=== PATIENT | female | born 1950 | race African-American/Black ===

== ENCOUNTER 2016-11-28 12:59 | Emergency (ER) | payer MEDICARE, MEDICAID ==
[~2016-11-28] VITALS: Ht 160 cm; Wt 73.0 kg
[~2016-11-28 12:59] MED LIST: AMLO10TA80 PO; ATOR10TA PO; BENA40TA3 PO; LISI-652 PO; Nifedipine PO; TRAM50TA73 PO
[2016-11-28 15:03] LABS: PROTHROMBIN TIME 10.7 sec
[2016-11-28 15:04] LABS: CALCIUM 9.7 mg/dL (8.5-10.1)
[2016-11-28 15:20] LABS: DIFFERENTIAL COMMENT 0; EOSINOPHILS % 2.5 % (0.0-5.0); HEMATOCRIT. 38.4 % (36.0-48.0); HEMOGLOBIN. 12.3 g/dL (12.0-16.0); LYMPHOCYTES % 28.6 % (20.0-50.0); MEAN CORPUSCULAR HEMOGLOBIN 23.5 pg (28.0-32.0); MEAN CORPUSCULAR VOLUME 73.6 fL (81.0-99.0); MEAN PLATELET VOLUME 9.1 fl (7.4-10.4); MONOCYTES % 9.6 % (2.0-8.0); NEUTROPHILS % 58.3 % (40.0-76.0); PLATELET 247 x1000/uL (130-400); RED BLOOD CELL COUNT 5.22 mill/uL (4.2-5.4); RED CELL DISTRIBUTION WIDTH 19.1 % (11.6-14.6)
[2016-11-28 16:15] VITALS: BP 155/76
== END 2016-11-28 16:19 | disposition home or self-care (01) ==
LOC: ER 13:59
DX: T82.318A Breakdown (mechanical) of other vascular grafts, initial encounter (principal); I12.9 Hypertensive chronic kidney disease with stage 1 through stage 4 chronic kidney disease, or unspecified chronic kidney disease; N18.6 End stage renal disease; Z99.2 Dependence on renal dialysis; Z86.73 Personal history of transient ischemic attack (TIA), and cerebral infarction without residual deficits; Y92.89 Other specified places as the place of occurrence of the external cause
CPT/HCPCS: 36415; 71010; 80048; 85025; 85610; 85730; 86850; 86900; 93005; 99285

== ENCOUNTER 2017-04-07 11:40 | Inpatient (IN) | payer MEDICARE, MEDICAID ==
[~2017-04-07] VITALS: Ht 160 cm; Wt 77.1 kg
[2017-04-07] MEDS ORDERED: ASPIRIN 81MG TABLET PO ONE (12:30)
[2017-04-07] MEDS ORDERED: NITROGLYCERIN OINT 1GM/INCH UDPKT TD ONE (12:30)
[2017-04-07 12:48] LABS: BASOPHILS % 1.4 % (0.0-2.0); EOSINOPHILS % 2.3 % (0.0-5.0); HEMATOCRIT. 35.8 % (36.0-48.0); HEMOGLOBIN. 11.7 g/dL (12.0-16.0); MEAN CORPUSCULAR HEMOGLOBIN 23.5 pg (28.0-32.0); MEAN CORPUSCULAR VOLUME 71.8 fL (81.0-99.0); MEAN PLATELET VOLUME 9.3 fl (7.4-10.4); MONOCYTES % 8.7 % (2.0-8.0); NEUTROPHILS % 66.6 % (40.0-76.0); PLATELET 231 x1000/uL (130-400); RED BLOOD CELL COUNT 4.98 mill/uL (4.2-5.4)
[2017-04-07 12:55] LABS: PARTIAL THROMBOPLASTIN TIME 26.6 sec (23.4-31.0); PROTHROMBIN TIME 10.7 sec (9.4-11.6)
[2017-04-07 13:04] LABS: CARBON DIOXIDE 33 mEq/L (21-32); CHLORIDE 93 mEq/L (98-107); TROPONIN I < 0.02 ng/mL (0.00-0.04)
[2017-04-07] MEDS ORDERED: PANTOPRAZOLE SODIUM 40 MG/VIAL IV NR (15:30)
[2017-04-07 17:19] VITALS: BP 99/54
[2017-04-07 17:23] VITALS: BP 99/54
[2017-04-07] MEDS ORDERED: REGADENOSON 0.4 MG/5 ML IV NR (17:30)
[2017-04-07] MEDS ORDERED: CLONIDINE 0.1MG TABLET PO PRN (17:30)
[2017-04-07] MEDS ORDERED: DIPHENHYDRAMINE 50MG/ML VIAL IV PRN (17:30)
[2017-04-07] MEDS ORDERED: MAGNESIUM/ALUMINUM HYDROXIDE/SIMETHICONE 30ML UDC PO PRN (17:30)
[2017-04-07] MEDS ORDERED: ACETAMINOPHEN 325MG TABLET PO PRN (17:30)
[2017-04-07] MEDS ORDERED: ONDANSETRON HCL 4MG/2ML VIAL IV PRN (17:30)
[2017-04-07] MEDS: ENOXAPARIN 30MG/0.3ML SYR SUBCUT SCH (18:22)
[2017-04-07 18:38] LABS: T4 FREE 1.36 ng/dL (0.76-1.46)
[2017-04-07] MEDS ORDERED: INFLUENZA VIRUS VACCINE 0.5ML SYR IM ONE (19:15)
[2017-04-07 20:00] VITALS: BP 109/41
[2017-04-07] MEDS: SODIUM CHLORIDE 0.9% INJ 3ML FLUSH IVF SCH (21:34)
[2017-04-07] MEDS ORDERED: ZOLPIDEM TARTRATE 5MG TABLET PO PRN (23:00)
[2017-04-07 23:25] LABS: CREATINE KINASE 41 IU/L (26-192); CREATINE KINASE MB FRACTION < 0.5 ng/mL (0.5-3.6); TROPONIN I < 0.02 ng/mL (0.00-0.04)
[2017-04-08] VITALS: BP 107/39
[2017-04-08 04:00] VITALS: BP 106/47
[2017-04-08] MEDS: SODIUM CHLORIDE 0.9% INJ 3ML FLUSH IVF SCH ×2 (05:51→19:16)
[2017-04-08 06:26] LABS: BASOPHILS % 0.9 % (0.0-2.0); EOSINOPHILS % 3.7 % (0.0-5.0); HEMATOCRIT. 29.8 % (36.0-48.0); HEMOGLOBIN. 9.8 g/dL (12.0-16.0); MEAN CORPUSCULAR HEMOGLOBIN 23.5 pg (28.0-32.0); MEAN CORPUSCULAR VOLUME 71.8 fL (81.0-99.0); MEAN PLATELET VOLUME 9.2 fl (7.4-10.4); MONOCYTES % 12.3 % (2.0-8.0); NEUTROPHILS % 47.1 % (40.0-76.0); PLATELET 196 x1000/uL (130-400); RED BLOOD CELL COUNT 4.15 mill/uL (4.2-5.4); RED CELL DISTRIBUTION WIDTH 18.5 % (11.6-14.6)
[2017-04-08 07:06] LABS: CARBON DIOXIDE 35 mEq/L (21-32); CHLORIDE 91 mEq/L (98-107)
[2017-04-08 07:14] LABS: CREATINE KINASE 38 IU/L (26-192); CREATINE KINASE MB FRACTION < 0.5 ng/mL (0.5-3.6); TROPONIN I < 0.02 ng/mL (0.00-0.04)
[2017-04-08 08:00] VITALS: BP 131/53
[2017-04-08] MEDS ORDERED: ASPIRIN 81MG TABLET PO SCH (09:00)
[2017-04-08] MEDS ORDERED: REGADENOSON 0.4 MG/5 ML IV ONE (09:44)
[2017-04-08 12:00] VITALS: BP 128/57
[2017-04-08] MEDS ORDERED: PROPOFOL 10MG/ML 100ML 100 ML IV ONE ×2 (15:27→16:58)
[2017-04-08 16:00] VITALS: BP 113/55
[2017-04-08 16:09] LABS: CREATINE KINASE 43 IU/L (26-192); CREATINE KINASE MB FRACTION < 0.5 ng/mL (0.5-3.6); TROPONIN I < 0.02 ng/mL (0.00-0.04)
[2017-04-08] MEDS: ENOXAPARIN 30MG/0.3ML SYR SUBCUT SCH (18:00)
[2017-04-08] MEDS ORDERED: FAMOTIDINE 20MG TABLET PO SCH (21:00)
[2017-04-08] MEDS ORDERED: EPOETIN ALFA 4000UNITS/ML VIAL SUBCUT SCH (21:00)
[2017-04-08] MEDS ORDERED: ATORVASTATIN CALCIUM 20MG TABLET PO SCH (21:00)
[2017-04-09] MEDS ORDERED: FOLIC ACID/VITAMIN B COMP W-C TABLET PO SCH (09:00)
== END 2017-04-08 19:23 | disposition home or self-care (01) | DRG 205 ==
LOC: ER 11:40 → 7WST 15:08 → EDBEDREQ 15:09 → EDBEDREQTM 15:09 → ENRESERV 15:53
PROVIDERS: ADMIT Internal Medicine; ATTEND Internal Medicine
DX: M94.0 Chondrocostal junction syndrome [Tietze] (principal); N18.6 End stage renal disease; I13.2 Hypertensive heart and chronic kidney disease with heart failure and with stage 5 chronic kidney disease, or end stage renal disease; E11.22 Type 2 diabetes mellitus with diabetic chronic kidney disease; I69.354 Hemiplegia and hemiparesis following cerebral infarction affecting left non-dominant side; I50.30 Unspecified diastolic (congestive) heart failure; E78.5 Hyperlipidemia, unspecified; F41.9 Anxiety disorder, unspecified; J44.9 Chronic obstructive pulmonary disease, unspecified; Z79.82 Long term (current) use of aspirin; Z82.49 Family history of ischemic heart disease and other diseases of the circulatory system; Z83.3 Family history of diabetes mellitus; Z87.891 Personal history of nicotine dependence; Z99.2 Dependence on renal dialysis; Z79.899 Other long term (current) drug therapy
CPT/HCPCS: 36415; 71010; 78452; 80048; 80053; 80061; 82550; 82553; 83036; 83735; 83880; 84439; 84443; 84484; 85025; 85379; 85610; 85730; 90686; 93005; 93017; 93306; 96374; 99285; A9500; C9113; J1650; J2704; J2785; J7030

== ENCOUNTER 2017-09-18 12:11 | Emergency (ER) | payer MEDICARE, MEDICAID ==
[~2017-09-18] VITALS: Ht 160 cm; Wt 75.0 kg
[~2017-09-18 12:11] MED LIST changes: -TRAM50TA73 PO; +TRAM50TA94 PO
[2017-09-18 15:08] LABS: EOSINOPHILS % 2.8 % (0.0-5.0); HEMATOCRIT. 37.1 % (36.0-48.0); HEMOGLOBIN. 12.2 g/dL (12.0-16.0); LYMPHOCYTES % 31.9 % (20.0-50.0); MEAN CORPUSCULAR HEMOGLOBIN 24.8 pg (28.0-32.0); MEAN CORPUSCULAR VOLUME 75.2 fL (81.0-99.0); MEAN PLATELET VOLUME 8.1 fl (7.4-10.4); NEUTROPHILS % 58.3 % (40.0-76.0); PLATELET 275 x1000/uL (130-400); RED BLOOD CELL COUNT 4.93 mill/uL (4.2-5.4); RED CELL DISTRIBUTION WIDTH 17.9 % (11.6-14.6)
[2017-09-18 15:17] LABS: INR 1.1; PROTHROMBIN TIME 11.1 sec (9.4-11.6)
[2017-09-18 15:20] LABS: CHLORIDE 100 mEq/L (98-107)
[2017-09-18] MEDS ORDERED: SODIUM POLYSTYRENE SULFONATE 15 G/60 ML BOT PO ONE (16:00)
[2017-09-18] MEDS ORDERED: SODIUM BICARBONATE 8.4% 1 MEQ/ML 50ML SYR IV ONE (16:00)
[2017-09-18] MEDS ORDERED: ALBUTEROL (0.083%) 2.5MG/3ML NEB HHN STA (16:02)
[2017-09-18 20:40] VITALS: BP 142/69
== END 2017-09-18 20:40 | disposition home or self-care (01) ==
LOC: ER 13:40
DX: T82.41XA Breakdown (mechanical) of vascular dialysis catheter, initial encounter (principal); I12.0 Hypertensive chronic kidney disease with stage 5 chronic kidney disease or end stage renal disease; N18.6 End stage renal disease; Z99.2 Dependence on renal dialysis; Y84.1 Kidney dialysis as the cause of abnormal reaction of the patient, or of later complication, without mention of misadventure at the time of the procedure; Y92.89 Other specified places as the place of occurrence of the external cause
CPT/HCPCS: 36415; 71045; 80048; 80053; 85025; 85610; 85730; 93005; 93971; 94640; 96374; 99285; J3490; J7611

== ENCOUNTER 2017-11-20 17:16 | Emergency (ER) | payer MEDICARE, MEDICAID ==
[~2017-11-20] VITALS: Ht 165.1 cm; Wt 75.0 kg
[2017-11-20 19:21] VITALS: BP 135/70
== END 2017-11-20 19:25 | disposition home or self-care (01) ==
LOC: ER 17:28
DX: R07.89 Other chest pain (principal); I10 Essential (primary) hypertension; Z99.2 Dependence on renal dialysis; Z86.73 Personal history of transient ischemic attack (TIA), and cerebral infarction without residual deficits
CPT/HCPCS: 99283

== ENCOUNTER 2018-02-10 23:33 | Emergency (ER) | payer MEDICARE, MEDICAID ==
[~2018-02-10] VITALS: Ht 160 cm; Wt 75.9 kg
[~2018-02-10 23:33] MED LIST changes: -BENA40TA3 PO; +BENA40TA9 PO
[2018-02-11 01:02] LABS: BASOPHILS % 0.9 % (0.0-2.0); EOSINOPHILS % 5.2 % (0.0-5.0); HEMATOCRIT. 30.1 % (36.0-48.0); HEMOGLOBIN. 9.8 g/dL (12.0-16.0); LYMPHOCYTES % 38.5 % (20.0-50.0); MEAN CORPUSCULAR HEMOGLOBIN 23.5 pg (28.0-32.0); MEAN CORPUSCULAR VOLUME 72.3 fL (81.0-99.0); MEAN PLATELET VOLUME 9.1 fl (7.4-10.4); MONOCYTES % 8.7 % (2.0-8.0); NEUTROPHILS % 46.7 % (40.0-76.0); PLATELET 197 x1000/uL (130-400); RED BLOOD CELL COUNT 4.16 mill/uL (4.2-5.4)
[2018-02-11 01:12] LABS: INR 1.1; PROTHROMBIN TIME 10.9 sec (9.1-11.1)
[2018-02-11] MEDS ORDERED: BACITRACIN ZINC OINT UDPKT TOP ONE (02:30)
[2018-02-11] MEDS ORDERED: LIDOCAINE HCL 1% 20ML VIAL (Pyxis) INJ MC ONE (02:30)
[2018-02-11] MEDS ORDERED: LIDOCAINE HCL/PF 1% 10 MG/ML 5ML VIAL IJ NR (03:00)
[2018-02-11 04:14] VITALS: BP 102/42
== END 2018-02-11 04:31 | disposition home or self-care (01) ==
LOC: ER 02-11 02:44
DX: T82.838A Hemorrhage due to vascular prosthetic devices, implants and grafts, initial encounter (principal); I13.11 Hypertensive heart and chronic kidney disease without heart failure, with stage 5 chronic kidney disease, or end stage renal disease; N18.6 End stage renal disease; Z99.2 Dependence on renal dialysis; Z86.73 Personal history of transient ischemic attack (TIA), and cerebral infarction without residual deficits; Z79.899 Other long term (current) drug therapy
CPT/HCPCS: 36415; 80048; 85025; 85610; 86850; 86900; 86901; 99284; J3490

== ENCOUNTER 2018-03-18 21:05 | Inpatient (IN) | payer MEDICARE, MEDICAID ==
[~2018-03-18] VITALS: Ht 160 cm; Wt 68.5 kg
[2018-03-18 21:30] VITALS: BP 123/51
[2018-03-18 22:00] VITALS: BP 123/51
[2018-03-18] MEDS ORDERED: DIPHENHYDRAMINE 25MG CAPSULE PO PRN (22:30)
[2018-03-18] MEDS ORDERED: LORAZEPAM 0.5MG TABLET PO PRN (22:30)
[2018-03-18] MEDS ORDERED: IPRATROPIUM/ALBUTEROL 0.5-3(2.5)MG/3ML NEB HHN PRN (22:30)
[2018-03-18] MEDS ORDERED: ACETAMINOPHEN 325MG TABLET PO PRN (22:30)
[2018-03-18] MEDS ORDERED: CLONIDINE 0.1MG TABLET PO PRN (22:30)
[2018-03-18] MEDS ORDERED: GUAIFENESIN 200MG/10ML SUGAR FREE UDC PO PRN (22:30)
[2018-03-18] MEDS: OMEPRAZOLE 20MG CAPSULE EXTENDED RELEASE PO SCH (23:20)
[2018-03-18] MEDS: HYDROCODONE/ACETAMINOPHEN 10/325MG TABLET PO PRN (23:20)
[2018-03-18] MEDS: EPOETIN ALFA 10000UNITS/ML VIAL SUBCUT SCH (23:21)
[2018-03-19 07:01] LABS: BASOPHILS % 0.8 % (0.0-2.0); EOSINOPHILS % 4.9 % (0.0-5.0); HEMATOCRIT. 23.2 % (36.0-48.0); HEMOGLOBIN. 7.8 g/dL (12.0-16.0); LYMPHOCYTES % 25.1 % (20.0-50.0); MEAN CORPUSCULAR HEMOGLOBIN 25.4 pg (28.0-32.0); MEAN CORPUSCULAR VOLUME 75.8 fL (81.0-99.0); MEAN PLATELET VOLUME 8.6 fl (7.4-10.4); MONOCYTES % 10.9 % (2.0-8.0); NEUTROPHILS % 58.3 % (40.0-76.0); PLATELET 234 x1000/uL (130-400); RED BLOOD CELL COUNT 3.07 mill/uL (4.2-5.4); RED CELL DISTRIBUTION WIDTH 18.9 % (11.6-14.6)
[2018-03-19 07:14] LABS: CHLORIDE 101 mEq/L (98-107)
[2018-03-19] MEDS: HYDROCODONE/ACETAMINOPHEN 10/325MG TABLET PO PRN ×2 (07:30→13:44)
[2018-03-19 08:00] VITALS: BP 145/57
[2018-03-19] MEDS ORDERED: BISACODYL 10MG SUPP PR PRN (09:30)
[2018-03-19] MEDS: ENOXAPARIN 30MG/0.3ML SYR SUBCUT SCH (09:41)
[2018-03-19] MEDS: OMEPRAZOLE 20MG CAPSULE EXTENDED RELEASE PO SCH ×2 (09:42→21:27)
[2018-03-19] MEDS: AMLODIPINE 10MG TABLET PO SCH (09:43)
[2018-03-19] MEDS: LISINOPRIL 40MG TABLET PO SCH (09:43)
[2018-03-19] MEDS ORDERED: LACTULOSE 20G/30ML UDC PO NR (09:45)
[2018-03-19] MEDS: DOCUSATE SODIUM 100MG CAPSULE PO SCH ×2 (09:48→16:57)
[2018-03-19] MEDS: ONDANSETRON 4MG ODT PO PRN ×3 (09:53→21:06)
[2018-03-19] MEDS ORDERED: BISACODYL 10MG SUPP PR NR (11:00)
[2018-03-19] MEDS ORDERED: LACTULOSE 20G/30ML UDC PO SCH (11:00)
[2018-03-19] MEDS: LACTULOSE 20G/30ML UDC PO SCH ×3 (14:00→21:27)
[2018-03-19 20:00] VITALS: BP 119/53
[2018-03-20] VITALS: BP 121/56
[2018-03-20 04:00] VITALS: BP 148/58
[2018-03-20 08:00] VITALS: BP 91/37
[2018-03-20 09:01] VITALS: BP 155/65
[2018-03-20] MEDS: DOCUSATE SODIUM 100MG CAPSULE PO SCH ×2 (09:06→17:00)
[2018-03-20] MEDS: OMEPRAZOLE 20MG CAPSULE EXTENDED RELEASE PO SCH ×2 (09:06→21:46)
[2018-03-20] MEDS: LISINOPRIL 40MG TABLET PO SCH (09:06)
[2018-03-20] MEDS: ENOXAPARIN 30MG/0.3ML SYR SUBCUT SCH (09:07)
[2018-03-20] MEDS: AMLODIPINE 10MG TABLET PO SCH (09:07)
[2018-03-20] MEDS ORDERED: SORBITOL 70% SOLN 30ML PO NR (10:15)
[2018-03-20] MEDS ORDERED: BISACODYL 10MG SUPP PR NR (12:15)
[2018-03-20] MEDS ORDERED: LORAZEPAM 0.5MG TABLET PO PRN (18:30)
[2018-03-20] MEDS ORDERED: BISACODYL 10MG SUPP PR PRN (18:45)
[2018-03-20] MEDS ORDERED: MAGNESIUM HYDROXIDE 400MG/5ML 30ML UDC PO PRN (18:45)
[2018-03-20] MEDS ORDERED: LACTULOSE 20G/30ML UDC PO PRN (18:45)
[2018-03-20 20:00] VITALS: BP 140/52
[2018-03-21] MEDS: DOCUSATE SODIUM 250MG CAPSULE PO SCH ×2 (08:10→16:49)
[2018-03-21] MEDS: ENOXAPARIN 30MG/0.3ML SYR SUBCUT SCH (08:10)
[2018-03-21] MEDS: HYDROCODONE/ACETAMINOPHEN 10/325MG TABLET PO PRN (08:11)
[2018-03-21] MEDS: AMLODIPINE 10MG TABLET PO SCH (08:11)
[2018-03-21] MEDS: OMEPRAZOLE 20MG CAPSULE EXTENDED RELEASE PO SCH ×2 (08:11→21:00)
[2018-03-21] MEDS: LISINOPRIL 40MG TABLET PO SCH (08:14)
[2018-03-21 08:28] VITALS: BP 153/56
[2018-03-21 09:22] LABS: BASOPHILS % 0.8 % (0.0-2.0); EOSINOPHILS % 4.4 % (0.0-5.0); HEMATOCRIT. 24.7 % (36.0-48.0); HEMOGLOBIN. 8.2 g/dL (12.0-16.0); LYMPHOCYTES % 26.6 % (20.0-50.0); MEAN CORPUSCULAR HEMOGLOBIN 24.5 pg (28.0-32.0); MEAN CORPUSCULAR VOLUME 74.2 fL (81.0-99.0); MONOCYTES % 13.2 % (2.0-8.0); PLATELET 327 x1000/uL (130-400); RED BLOOD CELL COUNT 3.33 mill/uL (4.2-5.4); RED CELL DISTRIBUTION WIDTH 17.8 % (11.6-14.6)
[2018-03-21 09:58] LABS: PHOSPHORUS 4.7 mg/dL (2.5-4.9)
[2018-03-21 09:59] LABS: FOLIC ACID (FOLATE) SERUM 9.5 ng/mL (>5.38)
[2018-03-21 16:16] LABS: PHOSPHORUS 4.4 mg/dL (2.5-4.9)
[2018-03-21 20:00] VITALS: BP 145/64
[2018-03-21] MEDS: EPOETIN ALFA 10000UNITS/ML VIAL SUBCUT SCH (22:09)
[2018-03-22 08:00] VITALS: BP 149/62
[2018-03-22] MEDS: DOCUSATE SODIUM 250MG CAPSULE PO SCH ×2 (08:41→17:02)
[2018-03-22] MEDS: OMEPRAZOLE 20MG CAPSULE EXTENDED RELEASE PO SCH (08:42)
[2018-03-22] MEDS: ENOXAPARIN 30MG/0.3ML SYR SUBCUT SCH (08:42)
[2018-03-22] MEDS: FOLIC ACID/VITAMIN B COMP W-C TABLET PO SCH (08:42)
[2018-03-22] MEDS: AMLODIPINE 10MG TABLET PO SCH (08:42)
[2018-03-22] MEDS: LISINOPRIL 40MG TABLET PO SCH (08:42)
[2018-03-22] MEDS ORDERED: BENAZEPRIL 20MG TABLET PO SCH (09:00)
[2018-03-22] MEDS: HYDROCODONE/ACETAMINOPHEN 10/325MG TABLET PO PRN ×3 (10:27→14:38)
[2018-03-22] MEDS ORDERED: HYDROCODONE/ACETAMINOPHEN 10/325MG TABLET PO PRN ×2 (18:30)
[2018-03-22 20:00] VITALS: BP 137/50
[2018-03-23] MEDS ORDERED: LORAZEPAM 0.5MG TABLET PO PRN (01:23)
[2018-03-23] MEDS: HYDROCODONE/ACETAMINOPHEN 10/325MG TABLET PO SCH ×2 (06:36→14:26)
[2018-03-23 07:22] LABS: HEMATOCRIT. 23.1 % (36.0-48.0); HEMOGLOBIN. 7.5 g/dL (12.0-16.0); MEAN CORPUSCULAR HEMOGLOBIN 24.6 pg (28.0-32.0); MEAN CORPUSCULAR VOLUME 75.4 fL (81.0-99.0); MEAN PLATELET VOLUME 8.1 fl (7.4-10.4); PLATELET 341 x1000/uL (130-400); RED BLOOD CELL COUNT 3.07 mill/uL (4.2-5.4); RED CELL DISTRIBUTION WIDTH 18.1 % (11.6-14.6)
[2018-03-23 08:09] VITALS: BP 154/59
[2018-03-23] MEDS: DOCUSATE SODIUM 250MG CAPSULE PO SCH ×2 (09:24→17:00)
[2018-03-23] MEDS: FOLIC ACID/VITAMIN B COMP W-C TABLET PO SCH (09:24)
[2018-03-23] MEDS: LISINOPRIL 40MG TABLET PO SCH (09:25)
[2018-03-23] MEDS: FAMOTIDINE 20MG TABLET PO SCH (09:25)
[2018-03-23] MEDS: AMLODIPINE 10MG TABLET PO SCH (09:25)
[2018-03-23] MEDS: ENOXAPARIN 30MG/0.3ML SYR SUBCUT SCH (09:26)
[2018-03-23 09:35] LABS: ATYPICAL LYMPHOCYTES 1
[2018-03-23 09:37] LABS: PLATELET ESTIMATE NORMAL
[2018-03-23 20:00] VITALS: BP 159/55
[2018-03-23] MEDS ORDERED: EPOETIN ALFA 10000UNITS/ML VIAL SUBCUT SCH (21:00)
[2018-03-23] MEDS: EPOETIN ALFA 10000UNITS/ML VIAL SUBCUT SCH (21:32)
[2018-03-23] MEDS: EPOETIN ALFA 4000UNITS/ML VIAL SUBCUT SCH (21:32)
[2018-03-23] MEDS: LORAZEPAM 0.5MG TABLET PO PRN (23:10)
[2018-03-24] MEDS: HYDROCODONE/ACETAMINOPHEN 10/325MG TABLET PO SCH ×2 (07:33→14:16)
[2018-03-24 08:04] VITALS: BP 163/54
[2018-03-24] MEDS: FAMOTIDINE 20MG TABLET PO SCH (08:40)
[2018-03-24] MEDS: ENOXAPARIN 30MG/0.3ML SYR SUBCUT SCH (08:40)
[2018-03-24] MEDS: FOLIC ACID/VITAMIN B COMP W-C TABLET PO SCH (08:40)
[2018-03-24] MEDS: DOCUSATE SODIUM 250MG CAPSULE PO SCH ×2 (08:40→17:36)
[2018-03-24] MEDS: AMLODIPINE 10MG TABLET PO SCH (08:41)
[2018-03-24] MEDS: LISINOPRIL 40MG TABLET PO SCH (08:41)
[2018-03-24] MEDS ORDERED: HYDROCODONE/ACETAMINOPHEN 10/325MG TABLET PO PRN ×2 (09:15)
[2018-03-24 20:00] VITALS: BP 154/52
[2018-03-25] MEDS: HYDROCODONE/ACETAMINOPHEN 10/325MG TABLET PO SCH ×2 (06:30→13:42)
[2018-03-25 06:40] LABS: BASOPHILS % 0.9 % (0.0-2.0); EOSINOPHILS % 3.6 % (0.0-5.0); HEMOGLOBIN. 7.5 g/dL (12.0-16.0); LYMPHOCYTES % 36.4 % (20.0-50.0); MEAN CORPUSCULAR HEMOGLOBIN 24.5 pg (28.0-32.0); MEAN CORPUSCULAR VOLUME 74.8 fL (81.0-99.0); MEAN PLATELET VOLUME 7.8 fl (7.4-10.4); MONOCYTES % 10.7 % (2.0-8.0); NEUTROPHILS % 48.4 % (40.0-76.0); PLATELET 382 x1000/uL (130-400); RED BLOOD CELL COUNT 3.08 mill/uL (4.2-5.4); RED CELL DISTRIBUTION WIDTH 18.4 % (11.6-14.6)
[2018-03-25 08:00] VITALS: BP 159/55
[2018-03-25] MEDS: ENOXAPARIN 30MG/0.3ML SYR SUBCUT SCH (09:00)
[2018-03-25] MEDS: LISINOPRIL 40MG TABLET PO SCH (09:00)
[2018-03-25] MEDS: DOCUSATE SODIUM 250MG CAPSULE PO SCH ×2 (09:00→17:26)
[2018-03-25] MEDS: AMLODIPINE 10MG TABLET PO SCH (09:01)
[2018-03-25] MEDS: FOLIC ACID/VITAMIN B COMP W-C TABLET PO SCH (09:01)
[2018-03-25] MEDS: FAMOTIDINE 20MG TABLET PO SCH (09:01)
[2018-03-25 20:00] VITALS: BP 160/68
[2018-03-25] MEDS: EPOETIN ALFA 4000UNITS/ML VIAL SUBCUT SCH (22:04)
[2018-03-25] MEDS: EPOETIN ALFA 10000UNITS/ML VIAL SUBCUT SCH (22:04)
[2018-03-25] MEDS: LORAZEPAM 0.5MG TABLET PO PRN (22:42)
[2018-03-26] MEDS: HYDROCODONE/ACETAMINOPHEN 10/325MG TABLET PO SCH ×2 (06:13→14:01)
[2018-03-26 08:03] VITALS: BP 151/52
[2018-03-26] MEDS: DOCUSATE SODIUM 250MG CAPSULE PO SCH ×2 (08:47→16:47)
[2018-03-26] MEDS: FOLIC ACID/VITAMIN B COMP W-C TABLET PO SCH (08:48)
[2018-03-26] MEDS: FAMOTIDINE 20MG TABLET PO SCH (08:48)
[2018-03-26] MEDS: AMLODIPINE 10MG TABLET PO SCH (08:48)
[2018-03-26] MEDS: LISINOPRIL 40MG TABLET PO SCH (08:48)
[2018-03-26] MEDS: ENOXAPARIN 30MG/0.3ML SYR SUBCUT SCH (08:49)
[2018-03-26 20:00] VITALS: BP 138/58
[2018-03-27] MEDS: HYDROCODONE/ACETAMINOPHEN 10/325MG TABLET PO SCH ×2 (06:25→12:32)
[2018-03-27 06:55] LABS: HEMATOCRIT. 25.8 % (36.0-48.0); HEMOGLOBIN. 8.3 g/dL (12.0-16.0); MEAN CORPUSCULAR HEMOGLOBIN 24.1 pg (28.0-32.0); MEAN CORPUSCULAR VOLUME 74.6 fL (81.0-99.0); PLATELET 420 x1000/uL (130-400); RED BLOOD CELL COUNT 3.46 mill/uL (4.2-5.4); RED CELL DISTRIBUTION WIDTH 18.6 % (11.6-14.6)
[2018-03-27 07:51] VITALS: BP 159/55
[2018-03-27] MEDS: ENOXAPARIN 30MG/0.3ML SYR SUBCUT SCH (08:17)
[2018-03-27] MEDS: DOCUSATE SODIUM 250MG CAPSULE PO SCH ×2 (08:18→16:22)
[2018-03-27] MEDS: FOLIC ACID/VITAMIN B COMP W-C TABLET PO SCH (08:18)
[2018-03-27] MEDS: AMLODIPINE 10MG TABLET PO SCH (08:18)
[2018-03-27] MEDS: FAMOTIDINE 20MG TABLET PO SCH (08:18)
[2018-03-27] MEDS: LISINOPRIL 40MG TABLET PO SCH (08:18)
[2018-03-27 09:12] LABS: NUCLEATED RED BLOOD CELLS 3 /100 WBC
[2018-03-27 09:13] LABS: PLATELET ESTIMATE SLIGHTLY INCREASED
[2018-03-27 12:15] VITALS: BP 133/59
[2018-03-27 20:00] VITALS: BP 143/61
[2018-03-27] MEDS: LORAZEPAM 0.5MG TABLET PO PRN (21:40)
[2018-03-28 07:09] LABS: BASOPHILS % 0.8 % (0.0-2.0); EOSINOPHILS % 3.4 % (0.0-5.0); HEMATOCRIT. 24.8 % (36.0-48.0); HEMOGLOBIN. 8.1 g/dL (12.0-16.0); LYMPHOCYTES % 32.6 % (20.0-50.0); MEAN CORPUSCULAR HEMOGLOBIN 24.4 pg (28.0-32.0); MEAN CORPUSCULAR VOLUME 74.7 fL (81.0-99.0); MONOCYTES % 7.9 % (2.0-8.0); NEUTROPHILS % 55.3 % (40.0-76.0); PLATELET 442 x1000/uL (130-400); RED BLOOD CELL COUNT 3.32 mill/uL (4.2-5.4); RED CELL DISTRIBUTION WIDTH 18.5 % (11.6-14.6)
[2018-03-28] MEDS: HYDROCODONE/ACETAMINOPHEN 10/325MG TABLET PO SCH ×2 (07:58→12:48)
[2018-03-28 08:00] VITALS: BP 144/97
[2018-03-28] MEDS: LISINOPRIL 40MG TABLET PO SCH (08:00)
[2018-03-28] MEDS: ENOXAPARIN 30MG/0.3ML SYR SUBCUT SCH (08:00)
[2018-03-28] MEDS: FOLIC ACID/VITAMIN B COMP W-C TABLET PO SCH (08:00)
[2018-03-28] MEDS: FAMOTIDINE 20MG TABLET PO SCH (08:00)
[2018-03-28] MEDS: DOCUSATE SODIUM 250MG CAPSULE PO SCH ×2 (08:00→16:18)
[2018-03-28] MEDS: AMLODIPINE 10MG TABLET PO SCH (08:00)
[2018-03-28 19:08] LABS: 25-HYDROXY VITAMIN D3 20 ng/mL (.)
[2018-03-28 20:00] VITALS: BP 146/64
[2018-03-28] MEDS: EPOETIN ALFA 10000UNITS/ML VIAL SUBCUT SCH (22:14)
[2018-03-28] MEDS: EPOETIN ALFA 4000UNITS/ML VIAL SUBCUT SCH (22:14)
[2018-03-29] MEDS: HYDROCODONE/ACETAMINOPHEN 10/325MG TABLET PO SCH ×2 (06:34→14:20)
[2018-03-29 08:00] VITALS: BP 143/81
[2018-03-29] MEDS: DOCUSATE SODIUM 250MG CAPSULE PO SCH ×2 (09:02→17:28)
[2018-03-29] MEDS: FOLIC ACID/VITAMIN B COMP W-C TABLET PO SCH (09:02)
[2018-03-29] MEDS: LISINOPRIL 40MG TABLET PO SCH (09:03)
[2018-03-29] MEDS: AMLODIPINE 10MG TABLET PO SCH (09:03)
[2018-03-29] MEDS: FAMOTIDINE 20MG TABLET PO SCH (09:03)
[2018-03-29] MEDS: ENOXAPARIN 30MG/0.3ML SYR SUBCUT SCH (09:04)
[2018-03-29] MEDS ORDERED: ONDANSETRON HCL 4MG TABLET PO PRN (11:30)
[2018-03-29] MEDS: ERGOCALCIFEROL 50000UNITS CAPSULE PO SCH (16:14)
[2018-03-29] MEDS ORDERED: LORAZEPAM 0.5MG TABLET PO PRN (16:15)
[2018-03-29] MEDS ORDERED: HYDROCODONE/ACETAMINOPHEN 10/325MG TABLET PO PRN (19:00)
[2018-03-29 20:00] VITALS: BP 148/61
[2018-03-29] MEDS: HYDROCODONE/ACETAMINOPHEN 10/325MG TABLET PO PRN (20:15)
[2018-03-30] MEDS: HYDROCODONE/ACETAMINOPHEN 10/325MG TABLET PO SCH ×2 (06:52→13:06)
[2018-03-30 06:53] LABS: BASOPHILS % 0.7 % (0.0-2.0); HEMATOCRIT. 25.7 % (36.0-48.0); HEMOGLOBIN. 8.3 g/dL (12.0-16.0); LYMPHOCYTES % 23.7 % (20.0-50.0); MEAN CORPUSCULAR HEMOGLOBIN 24.1 pg (28.0-32.0); MEAN CORPUSCULAR VOLUME 74.9 fL (81.0-99.0); MONOCYTES % 9.7 % (2.0-8.0); NEUTROPHILS % 63.9 % (40.0-76.0); PLATELET 390 x1000/uL (130-400); RED BLOOD CELL COUNT 3.43 mill/uL (4.2-5.4); RED CELL DISTRIBUTION WIDTH 19.2 % (11.6-14.6)
[2018-03-30 07:20] LABS: PHOSPHORUS 4.2 mg/dL (2.5-4.9)
[2018-03-30 08:00] VITALS: BP 136/57
[2018-03-30] MEDS: FOLIC ACID/VITAMIN B COMP W-C TABLET PO SCH (08:12)
[2018-03-30] MEDS: FAMOTIDINE 20MG TABLET PO SCH (08:12)
[2018-03-30] MEDS: DOCUSATE SODIUM 250MG CAPSULE PO SCH ×2 (08:12→17:00)
[2018-03-30] MEDS: AMLODIPINE 10MG TABLET PO SCH (08:13)
[2018-03-30] MEDS: LISINOPRIL 40MG TABLET PO SCH (08:13)
[2018-03-30] MEDS: ENOXAPARIN 30MG/0.3ML SYR SUBCUT SCH (08:14)
[2018-03-30 20:08] VITALS: BP 127/64
[2018-03-30] MEDS: EPOETIN ALFA 10000UNITS/ML VIAL SUBCUT SCH (21:35)
[2018-03-30] MEDS: EPOETIN ALFA 4000UNITS/ML VIAL SUBCUT SCH (21:35)
[2018-03-31] MEDS: HYDROCODONE/ACETAMINOPHEN 10/325MG TABLET PO SCH ×2 (07:00→09:00)
[2018-03-31 07:48] VITALS: BP 140/56
[2018-03-31] MEDS: DOCUSATE SODIUM 250MG CAPSULE PO SCH ×3 (09:00→17:00)
[2018-03-31] MEDS: AMLODIPINE 10MG TABLET PO SCH (09:26)
[2018-03-31] MEDS: LISINOPRIL 40MG TABLET PO SCH (09:27)
[2018-03-31] MEDS: FAMOTIDINE 20MG TABLET PO SCH (09:27)
[2018-03-31] MEDS: ENOXAPARIN 30MG/0.3ML SYR SUBCUT SCH (09:27)
[2018-03-31] MEDS: FOLIC ACID/VITAMIN B COMP W-C TABLET PO SCH (09:27)
[2018-03-31] MEDS: HYDROCODONE/ACETAMINOPHEN 10/325MG TABLET PO PRN (18:13)
[2018-03-31 20:00] VITALS: BP 131/53
[2018-04-01] MEDS: HYDROCODONE/ACETAMINOPHEN 10/325MG TABLET PO SCH ×2 (07:32→13:49)
[2018-04-01 08:14] LABS: BASOPHILS % 0.9 % (0.0-2.0); EOSINOPHILS % 2.7 % (0.0-5.0); HEMATOCRIT. 26.2 % (36.0-48.0); HEMOGLOBIN. 8.5 g/dL (12.0-16.0); LYMPHOCYTES % 35.2 % (20.0-50.0); MEAN CORPUSCULAR HEMOGLOBIN 23.9 pg (28.0-32.0); MEAN CORPUSCULAR VOLUME 73.9 fL (81.0-99.0); NEUTROPHILS % 52.2 % (40.0-76.0); PLATELET 436 x1000/uL (130-400); RED BLOOD CELL COUNT 3.54 mill/uL (4.2-5.4)
[2018-04-01 08:15] VITALS: BP 145/56
[2018-04-01] MEDS ORDERED: LORAZEPAM 0.5MG TABLET PO PRN (08:15)
[2018-04-01] MEDS: FOLIC ACID/VITAMIN B COMP W-C TABLET PO SCH (08:54)
[2018-04-01] MEDS: FAMOTIDINE 20MG TABLET PO SCH (08:54)
[2018-04-01] MEDS: DOCUSATE SODIUM 250MG CAPSULE PO SCH ×2 (08:54→17:54)
[2018-04-01] MEDS: ENOXAPARIN 30MG/0.3ML SYR SUBCUT SCH (08:55)
[2018-04-01] MEDS: AMLODIPINE 10MG TABLET PO SCH (08:59)
[2018-04-01] MEDS: LISINOPRIL 40MG TABLET PO SCH (08:59)
[2018-04-01] MEDS: LACTULOSE 20G/30ML UDC PO SCH ×3 (14:00→22:00)
[2018-04-01 20:00] VITALS: BP 144/58
[2018-04-01] MEDS: EPOETIN ALFA 10000UNITS/ML VIAL SUBCUT SCH (23:23)
[2018-04-01] MEDS: EPOETIN ALFA 4000UNITS/ML VIAL SUBCUT SCH (23:23)
[2018-04-02] MEDS ORDERED: HYDROCODONE/ACETAMINOPHEN 10/325MG TABLET PO PRN ×2 (03:11)
[2018-04-02] MEDS ORDERED: LORAZEPAM 0.5MG TABLET PO PRN (03:12)
[2018-04-02] MEDS: HYDROCODONE/ACETAMINOPHEN 10/325MG TABLET PO SCH ×2 (06:42→13:00)
[2018-04-02 08:00] VITALS: BP 130/52
[2018-04-02] MEDS: DOCUSATE SODIUM 250MG CAPSULE PO SCH ×2 (09:29→17:00)
[2018-04-02] MEDS: AMLODIPINE 10MG TABLET PO SCH (09:30)
[2018-04-02] MEDS: FAMOTIDINE 20MG TABLET PO SCH (09:30)
[2018-04-02] MEDS: LISINOPRIL 40MG TABLET PO SCH (09:30)
[2018-04-02] MEDS: FOLIC ACID/VITAMIN B COMP W-C TABLET PO SCH (09:30)
[2018-04-02] MEDS: ENOXAPARIN 30MG/0.3ML SYR SUBCUT SCH (09:31)
[2018-04-02 20:00] VITALS: BP 133/57
[2018-04-03 08:00] VITALS: BP 110/53
[2018-04-03] MEDS: AMLODIPINE 10MG TABLET PO SCH (09:38)
[2018-04-03] MEDS: FAMOTIDINE 20MG TABLET PO SCH (09:38)
[2018-04-03] MEDS: DOCUSATE SODIUM 250MG CAPSULE PO SCH ×2 (09:38→16:22)
[2018-04-03] MEDS: FOLIC ACID/VITAMIN B COMP W-C TABLET PO SCH (09:38)
[2018-04-03] MEDS: LISINOPRIL 40MG TABLET PO SCH (09:39)
[2018-04-03] MEDS: ENOXAPARIN 30MG/0.3ML SYR SUBCUT SCH (09:39)
[2018-04-03] MEDS ORDERED: HYDROCODONE/ACETAMINOPHEN 10/325MG TABLET PO PRN (16:30)
[2018-04-03] MEDS ORDERED: LORAZEPAM 0.5MG TABLET PO PRN (16:30)
[2018-04-03 20:00] VITALS: BP 138/47
[2018-04-04 07:24] LABS: BASOPHILS % 1.4 % (0.0-2.0); EOSINOPHILS % 1.9 % (0.0-5.0); HEMOGLOBIN. 8.8 g/dL (12.0-16.0); LYMPHOCYTES % 34.1 % (20.0-50.0); MEAN CORPUSCULAR HEMOGLOBIN 24.1 pg (28.0-32.0); MEAN CORPUSCULAR VOLUME 74.5 fL (81.0-99.0); MEAN PLATELET VOLUME 8.2 fl (7.4-10.4); MONOCYTES % 9.4 % (2.0-8.0); NEUTROPHILS % 53.2 % (40.0-76.0); PLATELET 406 x1000/uL (130-400); RED BLOOD CELL COUNT 3.63 mill/uL (4.2-5.4); RED CELL DISTRIBUTION WIDTH 19.6 % (11.6-14.6)
[2018-04-04] MEDS: HYDROCODONE/ACETAMINOPHEN 10/325MG TABLET PO PRN ×2 (07:52→21:08)
[2018-04-04 08:00] VITALS: BP 128/89
[2018-04-04 08:21] LABS: PHOSPHORUS 4.7 mg/dL (2.5-4.9)
[2018-04-04] MEDS: FAMOTIDINE 20MG TABLET PO SCH ×2 (08:48→21:06)
[2018-04-04] MEDS: DOCUSATE SODIUM 250MG CAPSULE PO SCH ×2 (08:48→16:07)
[2018-04-04] MEDS: ENOXAPARIN 30MG/0.3ML SYR SUBCUT SCH (08:48)
[2018-04-04] MEDS: AMLODIPINE 10MG TABLET PO SCH (08:48)
[2018-04-04] MEDS: FOLIC ACID/VITAMIN B COMP W-C TABLET PO SCH (08:48)
[2018-04-04] MEDS: LISINOPRIL 40MG TABLET PO SCH (08:49)
[2018-04-04 20:00] VITALS: BP 121/57
[2018-04-04] MEDS: EPOETIN ALFA 10000UNITS/ML VIAL SUBCUT SCH (21:08)
[2018-04-04] MEDS: EPOETIN ALFA 4000UNITS/ML VIAL SUBCUT SCH (21:09)
[2018-04-05 08:00] VITALS: BP 142/55
[2018-04-05] MEDS: ERGOCALCIFEROL 50000UNITS CAPSULE PO SCH (09:03)
[2018-04-05] MEDS: DOCUSATE SODIUM 250MG CAPSULE PO SCH (09:03)
[2018-04-05] MEDS: FOLIC ACID/VITAMIN B COMP W-C TABLET PO SCH (09:03)
[2018-04-05] MEDS: ENOXAPARIN 30MG/0.3ML SYR SUBCUT SCH (09:03)
[2018-04-05] MEDS: AMLODIPINE 10MG TABLET PO SCH (09:04)
[2018-04-05] MEDS: LISINOPRIL 40MG TABLET PO SCH (09:04)
[2018-04-05 13:31] VITALS: BP 110/56
[2018-04-05 14:49] VITALS: BP 110/56
== END 2018-04-05 17:10 | disposition home health service (06) | DRG 535 ==
PROVIDERS: ADMIT Physical Medicine & Rehabilitation Spinal Cord Injury Medicine; ATTEND Internal Medicine
PROC: 5A1D70Z Performance of Urinary Filtration, Intermittent, Less than 6 Hours Per Day (ICD-10-PCS; principal; 2018-03-21)
PROC: 5A1D70Z Performance of Urinary Filtration, Intermittent, Less than 6 Hours Per Day (ICD-10-PCS; 2018-03-23)
PROC: 5A1D70Z Performance of Urinary Filtration, Intermittent, Less than 6 Hours Per Day (ICD-10-PCS; 2018-03-25)
PROC: 5A1D70Z Performance of Urinary Filtration, Intermittent, Less than 6 Hours Per Day (ICD-10-PCS; 2018-03-28)
PROC: 5A1D70Z Performance of Urinary Filtration, Intermittent, Less than 6 Hours Per Day (ICD-10-PCS; 2018-03-30)
PROC: 5A1D70Z Performance of Urinary Filtration, Intermittent, Less than 6 Hours Per Day (ICD-10-PCS; 2018-04-01)
PROC: 5A1D70Z Performance of Urinary Filtration, Intermittent, Less than 6 Hours Per Day (ICD-10-PCS; 2018-04-04)
DX: S72.011A Unspecified intracapsular fracture of right femur, initial encounter for closed fracture (principal); N18.6 End stage renal disease; E43 Unspecified severe protein-calorie malnutrition; I13.2 Hypertensive heart and chronic kidney disease with heart failure and with stage 5 chronic kidney disease, or end stage renal disease; I69.354 Hemiplegia and hemiparesis following cerebral infarction affecting left non-dominant side; R47.01 Aphasia; I50.32 Chronic diastolic (congestive) heart failure; D63.8 Anemia in other chronic diseases classified elsewhere; E78.5 Hyperlipidemia, unspecified; F41.9 Anxiety disorder, unspecified; J44.9 Chronic obstructive pulmonary disease, unspecified; K59.00 Constipation, unspecified; M19.90 Unspecified osteoarthritis, unspecified site; R50.82 Postprocedural fever; Z96.641 Presence of right artificial hip joint; Z99.2 Dependence on renal dialysis; R26.9 Unspecified abnormalities of gait and mobility; R47.1 Dysarthria and anarthria; R53.81 Other malaise; W18.39XA Other fall on same level, initial encounter; Y93.89 Activity, other specified; Y92.098 Other place in other non-institutional residence as the place of occurrence of the external cause; Y99.8 Other external cause status; Z83.3 Family history of diabetes mellitus; Z82.49 Family history of ischemic heart disease and other diseases of the circulatory system; F39 Unspecified mood [affective] disorder; E55.9 Vitamin D deficiency, unspecified; Z68.26 Body mass index [BMI] 26.0-26.9, adult
CPT/HCPCS: 36415; 80048; 80053; 80061; 82270; 82306; 82607; 82728; 82746; 83036; 83540; 83550; 83735; 84100; 84134; 84443; 84630; 85025; 92523; 92610; 93970; 94640; 97110; 97112; 97116; 97163; 97166; 97530; 97535; G0515; J0885; J1650; J7030; J7620; Q0162

== ENCOUNTER 2019-01-24 13:17 | Inpatient (IN) | payer MEDICARE, MEDICAID ==
[~2019-01-24] VITALS: Ht 160 cm; Wt 73.9 kg
[~2019-01-24 13:17] MED LIST changes: -AMLO10TA80 PO; -BENA40TA9 PO
[2019-01-24 15:23] LABS: CHLORIDE 101 mEq/L (98-107)
[2019-01-24 15:24] LABS: BASOPHILS % 0.8 % (0.0-2.0); EOSINOPHILS % 4.9 % (0.0-5.0); HEMATOCRIT. 32.5 % (36.0-48.0); HEMOGLOBIN. 10.9 g/dL (12.0-16.0); LYMPHOCYTES % 27.8 % (20.0-50.0); MEAN CORPUSCULAR HEMOGLOBIN 24.7 pg (28.0-32.0); MEAN CORPUSCULAR VOLUME 73.3 fL (81.0-99.0); MEAN PLATELET VOLUME 9.1 fl (7.4-10.4); MONOCYTES % 6.4 % (2.0-8.0); NEUTROPHILS % 60.1 % (40.0-76.0); PLATELET 297 x1000/uL (130-400); RED BLOOD CELL COUNT 4.43 mill/uL (4.2-5.4); RED CELL DISTRIBUTION WIDTH 18.1 % (11.6-14.6)
[2019-01-24 20:00] VITALS: BP 140/58
[2019-01-24 20:30] VITALS: BP 140/58
[2019-01-24] MEDS: ATORVASTATIN CALCIUM 10MG TABLET PO SCH (22:32)
[2019-01-25] VITALS: BP 132/54
[2019-01-25 04:00] VITALS: BP 136/79
[2019-01-25 05:49] LABS: HEMATOCRIT. 31.1 % (36.0-48.0); HEMOGLOBIN. 10.1 g/dL (12.0-16.0); LYMPHOCYTES % 36.6 % (20.0-50.0); MEAN CORPUSCULAR HEMOGLOBIN 24.2 pg (28.0-32.0); MEAN CORPUSCULAR VOLUME 74.9 fL (81.0-99.0); MEAN PLATELET VOLUME 8.1 fl (7.4-10.4); MONOCYTES % 8.7 % (2.0-8.0); NEUTROPHILS % 48.7 % (40.0-76.0); PLATELET 221 x1000/uL (130-400); RED BLOOD CELL COUNT 4.15 mill/uL (4.2-5.4); RED CELL DISTRIBUTION WIDTH 17.6 % (11.6-14.6)
[2019-01-25 08:00] VITALS: BP 140/49
[2019-01-25] MEDS ORDERED: NIFEDIPINE 90 MG PO SCH (09:00)
[2019-01-25] MEDS ORDERED: LISINOPRIL 20 MG PO SCH (09:00)
[2019-01-25] MEDS: NIFEDIPINE XL 90MG TAB PO SCH (09:01)
[2019-01-25] MEDS: SEVELAMER CARBONATE 800 MG TABLET PO SCH ×2 (09:01→15:00)
[2019-01-25] MEDS: FOLIC ACID/VITAMIN B COMP W-C TABLET PO SCH (09:02)
[2019-01-25] MEDS: LISINOPRIL 20MG TABLET PO SCH (09:02)
[2019-01-25] MEDS: ASPIRIN 81MG TABLET PO SCH (09:02)
[2019-01-25 12:00] VITALS: BP 136/52
[2019-01-25 16:35] VITALS: BP 94/54
[2019-01-25] MEDS: ENOXAPARIN 30MG/0.3ML SYR SUBCUT SCH (17:55)
[2019-01-25] MEDS: CALCIUM CARBONATE 500MG TABLET CHEW PO SCH (17:55)
[2019-01-25 20:00] VITALS: BP 129/55
[2019-01-25] MEDS: ATORVASTATIN CALCIUM 10MG TABLET PO SCH (21:14)
[2019-01-26] VITALS: BP 154/67
[2019-01-26 04:00] VITALS: BP 140/54
[2019-01-26 06:58] LABS: BASOPHILS % 0.6 % (0.0-2.0); EOSINOPHILS % 4.3 % (0.0-5.0); HEMATOCRIT. 32.8 % (36.0-48.0); HEMOGLOBIN. 10.7 g/dL (12.0-16.0); LYMPHOCYTES % 33.4 % (20.0-50.0); MEAN CORPUSCULAR HEMOGLOBIN 24.2 pg (28.0-32.0); MEAN CORPUSCULAR VOLUME 74.4 fL (81.0-99.0); MEAN PLATELET VOLUME 8.6 fl (7.4-10.4); NEUTROPHILS % 53.7 % (40.0-76.0); PLATELET 210 x1000/uL (130-400); RED BLOOD CELL COUNT 4.41 mill/uL (4.2-5.4); RED CELL DISTRIBUTION WIDTH 17.9 % (11.6-14.6)
[2019-01-26 08:00] VITALS: BP 136/91
[2019-01-26 08:04] LABS: PHOSPHORUS 6.9 mg/dL (2.5-4.9)
[2019-01-26] MEDS: LISINOPRIL 20MG TABLET PO SCH (08:35)
[2019-01-26] MEDS: ASPIRIN 81MG TABLET PO SCH (08:35)
[2019-01-26] MEDS: FOLIC ACID/VITAMIN B COMP W-C TABLET PO SCH (08:35)
[2019-01-26] MEDS: CALCIUM CARBONATE 500MG TABLET CHEW PO SCH ×3 (08:35→18:01)
[2019-01-26] MEDS: ENOXAPARIN 30MG/0.3ML SYR SUBCUT SCH (08:36)
[2019-01-26] MEDS: NIFEDIPINE XL 90MG TAB PO SCH (08:36)
[2019-01-26] MEDS ORDERED: FOLIC ACID/VITAMIN B COMP W-C TABLET PO SCH (09:00)
[2019-01-26 12:00] VITALS: BP 131/87
[2019-01-26 16:00] VITALS: BP 132/47
== END 2019-01-26 20:06 | disposition home health service (06) | DRG 73 ==
LOC: ER 13:17 → 8WST 17:12 → EDBEDREQ 17:15 → EDBEDREQTM 17:15 → ENRESERV 17:37
PROVIDERS: ADMIT Internal Medicine; ATTEND Internal Medicine
PROC: 5A1D70Z Performance of Urinary Filtration, Intermittent, Less than 6 Hours Per Day (ICD-10-PCS; principal; 2019-01-25)
DX: G90.8 Other disorders of autonomic nervous system (principal); N18.6 End stage renal disease; G93.40 Encephalopathy, unspecified; I50.32 Chronic diastolic (congestive) heart failure; I13.2 Hypertensive heart and chronic kidney disease with heart failure and with stage 5 chronic kidney disease, or end stage renal disease; I69.354 Hemiplegia and hemiparesis following cerebral infarction affecting left non-dominant side; N25.81 Secondary hyperparathyroidism of renal origin; R00.1 Bradycardia, unspecified; F41.9 Anxiety disorder, unspecified; I48.0 Paroxysmal atrial fibrillation; D63.8 Anemia in other chronic diseases classified elsewhere; E78.5 Hyperlipidemia, unspecified; I49.3 Ventricular premature depolarization; Z82.49 Family history of ischemic heart disease and other diseases of the circulatory system; Z83.3 Family history of diabetes mellitus; Z87.891 Personal history of nicotine dependence; Z99.2 Dependence on renal dialysis
CPT/HCPCS: 36415; 71045; 80048; 80061; 82962; 83735; 84100; 84443; 84484; 93005; 93306; 96372; 97162; 97530; 99285; J1650

== ENCOUNTER 2020-01-01 19:53 | Inpatient (IN) | payer MEDICARE, MEDICAID ==
[~2020-01-01] VITALS: Ht 160 cm; Wt 77.6 kg
[2020-01-02 00:02] LABS: BASOPHILS % 0.5 % (0.0-2.0); EOSINOPHILS % 0.7 % (0.0-5.0); HEMOGLOBIN. 11.1 g/dL (12.0-16.0); LYMPHOCYTES % 11.1 % (20.0-50.0); MEAN CORPUSCULAR HEMOGLOBIN 24.8 pg (28.0-32.0); MEAN CORPUSCULAR VOLUME 73.9 fL (81.0-99.0); MEAN PLATELET VOLUME 8.8 fl (7.4-10.4); MONOCYTES % 4.2 % (2.0-8.0); NEUTROPHILS % 83.5 % (40.0-76.0); PLATELET 220 x1000/uL (130-400); RED BLOOD CELL COUNT 4.47 mill/uL (4.2-5.4); RED CELL DISTRIBUTION WIDTH 18.6 % (11.6-14.6)
[2020-01-02 00:06] LABS: CHLORIDE 91 mEq/L (98-107)
[2020-01-02 00:11] LABS: ETHANOL BLOOD < 10 mg/dL
[2020-01-02] MEDS ORDERED: AZITHROMYCIN 500 MG in DEXT 5% WATER 250 ML IV NR (00:15)
[2020-01-02] MEDS ORDERED: CEFTRIAXONE 1 G PREMIX 50 ML IV NR (00:15)
[2020-01-02 11:30] VITALS: BP 97/53
[2020-01-02] MEDS ORDERED: DOXA1TAB2 PO (12:13)
[2020-01-02] MEDS ORDERED: FURO20TA4 MT (12:13)
[2020-01-02] MEDS ORDERED: ACET650T37 PO (12:13)
[2020-01-02] MEDS ORDERED: BENA1TAB21 MT (12:13)
[2020-01-02] MEDS ORDERED: ONDANSETRON HCL 4MG/2ML INJ IV PRN (14:45)
[2020-01-02] MEDS ORDERED: ACETAMINOPHEN 325MG TABLET PO PRN (14:45)
[2020-01-02] MEDS ORDERED: CLONIDINE 0.1MG TABLET PO PRN (14:45)
[2020-01-02] MEDS ORDERED: MAGNESIUM/ALUMINUM HYDROXIDE/SIMETHICONE 30ML UDC PO PRN (14:45)
[2020-01-02] MEDS ORDERED: DIPHENHYDRAMINE 50MG/ML VIAL IV PRN (14:45)
[2020-01-02] MEDS: ACETAMINOPHEN 325MG TABLET PO PRN ×2 (15:48→20:15)
[2020-01-02] MEDS: GUAIFENESIN 200MG/10ML SUGAR FREE UDC PO PRN ×2 (15:48→20:14)
[2020-01-02 16:00] VITALS: BP 126/81
[2020-01-02 20:00] VITALS: BP 126/57
[2020-01-02] MEDS ORDERED: ZOLPIDEM TARTRATE 5MG TABLET PO PRN (21:00)
[2020-01-02] MEDS: SODIUM CHLORIDE 0.9% INJ 3ML FLUSH IVF SCH (21:55)
[2020-01-02] MEDS ORDERED: VANCOMYCIN 1500MG in DEXTROSE 5% WATER 250ML IV NR (23:00)
[2020-01-03] VITALS: BP 138/71
[2020-01-03 04:00] VITALS: BP 119/49
[2020-01-03] MEDS: SODIUM CHLORIDE 0.9% INJ 3ML FLUSH IVF SCH ×2 (05:33→22:05)
[2020-01-03 08:00] VITALS: BP 107/59
[2020-01-03] MEDS: LISINOPRIL 20MG TABLET PO SCH (09:00)
[2020-01-03] MEDS: ENOXAPARIN 30MG/0.3ML SYR SUBCUT SCH (09:28)
[2020-01-03 12:00] VITALS: BP 118/47
[2020-01-03 12:40] LABS: EOSINOPHILS % 4.2 % (0.0-5.0); HEMATOCRIT. 31.9 % (36.0-48.0); HEMOGLOBIN. 10.7 g/dL (12.0-16.0); LYMPHOCYTES % 24.2 % (20.0-50.0); MEAN CORPUSCULAR HEMOGLOBIN 24.8 pg (28.0-32.0); MEAN CORPUSCULAR VOLUME 73.7 fL (81.0-99.0); MEAN PLATELET VOLUME 8.9 fl (7.4-10.4); MONOCYTES % 8.2 % (2.0-8.0); NEUTROPHILS % 62.4 % (40.0-76.0); PLATELET 203 x1000/uL (130-400); RED BLOOD CELL COUNT 4.32 mill/uL (4.2-5.4); RED CELL DISTRIBUTION WIDTH 18.3 % (11.6-14.6)
[2020-01-03 20:00] VITALS: BP 114/61
[2020-01-04] VITALS (7 sets, daily range): BP systolic 94–118; BP diastolic 44–60
[2020-01-04] MEDS: SODIUM CHLORIDE 0.9% INJ 3ML FLUSH IVF SCH ×2 (05:06→14:00)
[2020-01-04] MEDS: LISINOPRIL 20MG TABLET PO SCH (09:00)
[2020-01-04] MEDS: ENOXAPARIN 30MG/0.3ML SYR SUBCUT SCH (09:13)
[2020-01-04] MEDS ORDERED: VANCOMYCIN 1 G PREMIX 200 ML IV SCH (13:00)
== END 2020-01-04 22:25 | disposition home or self-care (01) | DRG 70 ==
LOC: ER 19:53 → 7WST 01-02 02:16 → EDBEDREQ 01-02 02:20 → EDBEDREQTM 01-02 02:20 → ENRESERV 01-02 10:41 → 8WST 01-03 11:34
PROVIDERS: ADMIT Internal Medicine; ATTEND Internal Medicine
PROC: 5A1D70Z Performance of Urinary Filtration, Intermittent, Less than 6 Hours Per Day (ICD-10-PCS; principal; 2020-01-03)
DX: G93.41 Metabolic encephalopathy (principal); N18.6 End stage renal disease; J18.9 Pneumonia, unspecified organism; I12.0 Hypertensive chronic kidney disease with stage 5 chronic kidney disease or end stage renal disease; I69.354 Hemiplegia and hemiparesis following cerebral infarction affecting left non-dominant side; I69.351 Hemiplegia and hemiparesis following cerebral infarction affecting right dominant side; J44.0 Chronic obstructive pulmonary disease with (acute) lower respiratory infection; N25.81 Secondary hyperparathyroidism of renal origin; Z20.828 Contact with and (suspected) exposure to other viral communicable diseases; Z96.641 Presence of right artificial hip joint; F41.9 Anxiety disorder, unspecified; E78.5 Hyperlipidemia, unspecified; R53.1 Weakness; Z99.2 Dependence on renal dialysis; Z82.49 Family history of ischemic heart disease and other diseases of the circulatory system; Z83.3 Family history of diabetes mellitus; Z87.891 Personal history of nicotine dependence; Z79.899 Other long term (current) drug therapy
CPT/HCPCS: 36415; 71045; 80048; 80053; 80202; 80320; 83605; 83880; 84484; 85025; 93005; 96365; 97162; 99285; J0456; J0696; J1650; J3370; J7060; G0480; U0003-CS

== ENCOUNTER 2020-04-22 10:22 | Inpatient (IN) | payer MEDICARE, MEDICAID ==
[~2020-04-22] VITALS: Ht 160 cm; Wt 78.9 kg
[~2020-04-22 10:22] MED LIST changes: +ACET650T37 PO; +BENA1TAB21 MT; +DOXA1TAB2 PO; +FURO20TA4 MT
[2020-04-22 13:19] LABS: BASOPHILS % 0.6 % (0.0-2.0); EOSINOPHILS % 3.8 % (0.0-5.0); HEMOGLOBIN. 10.5 g/dL (12.0-16.0); LYMPHOCYTES % 25.4 % (20.0-50.0); MEAN CORPUSCULAR HEMOGLOBIN 24.6 pg (28.0-32.0); MEAN CORPUSCULAR VOLUME 75.2 fL (81.0-99.0); MEAN PLATELET VOLUME 8.1 fl (7.4-10.4); MONOCYTES % 5.6 % (2.0-8.0); NEUTROPHILS % 64.6 % (40.0-76.0); PLATELET 263 x1000/uL (130-400); RED BLOOD CELL COUNT 4.26 mill/uL (4.2-5.4); RED CELL DISTRIBUTION WIDTH 16.4 % (11.6-14.6)
[2020-04-22 13:22] LABS: CHLORIDE 99 mEq/L (98-107); PROTHROMBIN TIME 10.8 sec (9.6-11.0)
[2020-04-22] MEDS ORDERED: SODIUM BICARBONATE 4% (2.4MEQ) 5ML VIAL IV ONE (14:04)
[2020-04-22] MEDS ORDERED: IOHEXOL-300 100 ML BOTTLE ONE (14:04)
[2020-04-22] MEDS ORDERED: HEPARIN 1000 UNITS/ML 10ML ONE (14:04)
[2020-04-22] MEDS ORDERED: LIDOCAINE HCL 1% 20ML VIAL (Pyxis) INJ ONE (14:05)
[2020-04-22] MEDS ORDERED: CEFAZOLIN 1000MG PREMIX 50 ML IV ONE ×3 (14:15→14:41)
[2020-04-22] MEDS ORDERED: FENTANYL CITRATE/PF 50MCG/ML 2ML VIAL ONE (14:16)
[2020-04-22 14:30] VITALS: BP 158/63
[2020-04-22 14:40] VITALS: BP 167/80
[2020-04-22 14:41] VITALS: BP 158/63
[2020-04-22 14:50] VITALS: BP 178/78
[2020-04-22] MEDS ORDERED: HEPARIN 1000 UNITS/ML 10ML IV ONE (15:15)
[2020-04-22] MEDS ORDERED: HEPARIN 5000 UNITS/ML VIAL IV ONE (15:15)
[2020-04-22] MEDS ORDERED: ONDANSETRON HCL 4MG/2ML INJ IV PRN (17:15)
[2020-04-22] MEDS ORDERED: INSULIN REGULAR (HUMULIN R) 300UNITS/3ML IV ONE (17:15)
[2020-04-22] MEDS ORDERED: DIPHENHYDRAMINE 50MG/ML VIAL IV PRN (17:15)
[2020-04-22] MEDS ORDERED: MAGNESIUM/ALUMINUM HYDROXIDE/SIMETHICONE 30ML UDC PO PRN (17:15)
[2020-04-22] MEDS ORDERED: HYDROCODONE/ACETAMINOPHEN 5/325MG TABLET PO PRN (17:15)
[2020-04-22] MEDS ORDERED: DEXTROSE 50% WATER 50ML SYRINGE IV ONE (17:15)
[2020-04-22] MEDS ORDERED: CLONIDINE 0.1MG TABLET PO PRN (17:15)
[2020-04-22] MEDS ORDERED: MAGNESIUM HYDROXIDE 400MG/5ML 30ML UDC PO PRN (17:15)
[2020-04-22] MEDS ORDERED: IPRATROPIUM/ALBUTEROL 0.5-3(2.5)MG/3ML NEB HHN PRN (17:15)
[2020-04-22] MEDS ORDERED: ZOLPIDEM TARTRATE 5MG TABLET PO PRN (17:15)
[2020-04-22] MEDS ORDERED: ACETAMINOPHEN 325MG TABLET PO PRN ×2 (17:15)
[2020-04-22] MEDS: ENOXAPARIN 30MG/0.3ML SYR SUBCUT SCH (21:04)
[2020-04-22] MEDS: SODIUM CHLORIDE 0.9% INJ 3ML FLUSH IVF SCH (23:43)
[2020-04-23 05:25] VITALS: BP 147/71
[2020-04-23] MEDS: SODIUM CHLORIDE 0.9% INJ 3ML FLUSH IVF SCH ×3 (06:00→22:35)
[2020-04-23 08:00] VITALS: BP 160/64
[2020-04-23] MEDS: FOLIC ACID/VITAMIN B COMP W-C TABLET PO SCH (09:18)
[2020-04-23] MEDS: LISINOPRIL 20MG TABLET PO SCH (09:18)
[2020-04-23 10:50] VITALS: BP 160/64
[2020-04-23 12:00] VITALS: BP 114/55
[2020-04-23] MEDS ORDERED: INFLUENZA VACCINE 05/PF 0.5 ML VIAL IM ONE (13:15)
[2020-04-23] MEDS ORDERED: PNEUMOCOCCAL 23-VAL P-SAC VAC 0.5 ML IM ONE (13:15)
[2020-04-23 16:00] VITALS: BP 137/52
[2020-04-23] MEDS: ENOXAPARIN 30MG/0.3ML SYR SUBCUT SCH (17:37)
[2020-04-23 20:00] VITALS: BP 119/51
[2020-04-23] MEDS: FAMOTIDINE 20MG TABLET PO SCH ×2 (21:00→22:35)
[2020-04-23] MEDS: GUAIFENESIN 200MG/10ML SUGAR FREE UDC PO PRN (22:35)
[2020-04-24] VITALS (7 sets, daily range): BP systolic 80–147; BP diastolic 40–69
[2020-04-24] MEDS: GUAIFENESIN 200MG/10ML SUGAR FREE UDC PO PRN ×2 (04:47→22:14)
[2020-04-24] MEDS: SODIUM CHLORIDE 0.9% INJ 3ML FLUSH IVF SCH ×3 (06:22→22:07)
[2020-04-24] MEDS: LISINOPRIL 20MG TABLET PO SCH (08:47)
[2020-04-24] MEDS: FOLIC ACID/VITAMIN B COMP W-C TABLET PO SCH (08:48)
[2020-04-24] MEDS: ENOXAPARIN 30MG/0.3ML SYR SUBCUT SCH (17:48)
[2020-04-24] MEDS: FAMOTIDINE 20MG TABLET PO SCH (22:07)
[2020-04-25] VITALS: BP 162/72
[2020-04-25 04:00] VITALS: BP 122/47
[2020-04-25] MEDS: GUAIFENESIN 200MG/10ML SUGAR FREE UDC PO PRN ×2 (04:36→13:22)
[2020-04-25] MEDS: SODIUM CHLORIDE 0.9% INJ 3ML FLUSH IVF SCH ×3 (06:00→21:41)
[2020-04-25 08:00] VITALS: BP 122/49
[2020-04-25] MEDS: FOLIC ACID/VITAMIN B COMP W-C TABLET PO SCH (09:08)
[2020-04-25] MEDS: LISINOPRIL 20MG TABLET PO SCH (09:09)
[2020-04-25 16:00] VITALS: BP 124/59
[2020-04-25 17:48] VITALS: BP_SYST 124; BP_SYST 139; BP_DIAS 49; BP_DIAS 61
[2020-04-25] MEDS: ENOXAPARIN 30MG/0.3ML SYR SUBCUT SCH (18:00)
[2020-04-25 20:00] VITALS: BP 157/55
[2020-04-25] MEDS: FAMOTIDINE 20MG TABLET PO SCH (21:41)
[2020-04-26] VITALS: BP 145/71
[2020-04-26 04:00] VITALS: BP 127/58
[2020-04-26] MEDS: SODIUM CHLORIDE 0.9% INJ 3ML FLUSH IVF SCH (07:20)
[2020-04-26 08:00] VITALS: BP 139/40
[2020-04-26] MEDS: LISINOPRIL 20MG TABLET PO SCH (08:33)
[2020-04-26] MEDS: FOLIC ACID/VITAMIN B COMP W-C TABLET PO SCH (08:33)
[2020-04-26] MEDS: GUAIFENESIN 200MG/10ML SUGAR FREE UDC PO PRN (09:00)
== END 2020-04-26 11:22 | disposition home or self-care (01) | DRG 252 ==
LOC: ER 10:22 → MICUSO 17:03 → EDBEDREQTM 17:08 → EDBEDREQSVC 21:42 → 6EST 04-23 03:09
PROVIDERS: ADMIT Internal Medicine; ATTEND Internal Medicine
PROC: B5171ZZ Fluoroscopy of Left Subclavian Vein using Low Osmolar Contrast (ICD-10-PCS; principal; 2020-04-22)
PROC: 05763DZ Dilation of Left Subclavian Vein with Intraluminal Device, Percutaneous Approach (ICD-10-PCS; 2020-04-22)
PROC: B5181ZZ Fluoroscopy of Superior Vena Cava using Low Osmolar Contrast (ICD-10-PCS; 2020-04-22)
PROC: 5A1D70Z Performance of Urinary Filtration, Intermittent, Less than 6 Hours Per Day (ICD-10-PCS; 2020-04-22)
PROC: 5A1D70Z Performance of Urinary Filtration, Intermittent, Less than 6 Hours Per Day (ICD-10-PCS; 2020-04-24)
DX: T82.868A Thrombosis due to vascular prosthetic devices, implants and grafts, initial encounter (principal); N18.6 End stage renal disease; I50.33 Acute on chronic diastolic (congestive) heart failure; I69.354 Hemiplegia and hemiparesis following cerebral infarction affecting left non-dominant side; N25.81 Secondary hyperparathyroidism of renal origin; T82.818A Embolism due to vascular prosthetic devices, implants and grafts, initial encounter; D63.8 Anemia in other chronic diseases classified elsewhere; J44.9 Chronic obstructive pulmonary disease, unspecified; E78.5 Hyperlipidemia, unspecified; F41.9 Anxiety disorder, unspecified; R53.81 Other malaise; E87.5 Hyperkalemia; Y71.2 Prosthetic and other implants, materials and accessory cardiovascular devices associated with adverse incidents; Z20.828 Contact with and (suspected) exposure to other viral communicable diseases; Y83.2 Surgical operation with anastomosis, bypass or graft as the cause of abnormal reaction of the patient, or of later complication, without mention of misadventure at the time of the procedure; Z82.49 Family history of ischemic heart disease and other diseases of the circulatory system; Z99.2 Dependence on renal dialysis; Z83.3 Family history of diabetes mellitus; Z87.891 Personal history of nicotine dependence; Z79.899 Other long term (current) drug therapy; Y92.89 Other specified places as the place of occurrence of the external cause
CPT/HCPCS: 36415; 36901; 36907; 71045; 76937; 80048; 80053; 82962; 85025; 87426; 90686; 90732; 93005; 99285; C1725; J0690; J1644; J1650; J1815; J3010; J3490; Q9967

== ENCOUNTER 2020-12-10 12:37 | Inpatient (IN) | payer MEDICARE, MEDICAID ==
[~2020-12-10] VITALS: Ht 160 cm; Wt 83.5 kg
[2020-12-10] MEDS ORDERED: LIDOCAINE HCL/EPINEPHRINE 1%-EPI 1:100,000 10 ML VIAL IJ ONE (13:00)
[2020-12-10] MEDS ORDERED: SODIUM CHLORIDE 0.9% 1,000 ML IV ONE (13:00)
[2020-12-10 13:12] LABS: BASOPHILS % 1.3 % (0.0-2.0); EOSINOPHILS % 3.8 % (0.0-5.0); HEMATOCRIT. 30.6 % (36.0-48.0); HEMOGLOBIN. 10.3 g/dL (12.0-16.0); LYMPHOCYTES % 43.3 % (20.0-50.0); MEAN CORPUSCULAR HEMOGLOBIN 25.3 pg (28.0-32.0); MEAN PLATELET VOLUME 8.2 fl (7.4-10.4); MONOCYTES % 11.1 % (2.0-8.0); NEUTROPHILS % 40.5 % (40.0-76.0); PLATELET 256 x1000/uL (130-400); RED BLOOD CELL COUNT 4.07 mill/uL (4.2-5.4); RED CELL DISTRIBUTION WIDTH 18.2 % (11.6-14.6)
[2020-12-10] MEDS ORDERED: LIDOCAINE HCL/EPINEPHRINE 1%-EPI 1:100,000 20 ML VIAL INFIL ONE (13:15)
[2020-12-10 13:18] LABS: CHLORIDE 102 mEq/L (98-107)
[2020-12-10 15:14] LABS: INR 1.1; PROTHROMBIN TIME 11.6 sec (9.6-11.0)
[2020-12-10 15:41] LABS: HEPATITIS B SURFACE ANTIGEN NEGATIVE
[2020-12-10] MEDS ORDERED: ACETAMINOPHEN 325MG TABLET PO PRN ×2 (18:00)
[2020-12-10] MEDS ORDERED: MAGNESIUM/ALUMINUM HYDROXIDE/SIMETHICONE 30ML UDC PO PRN (18:00)
[2020-12-10] MEDS ORDERED: HYDRALAZINE 20MG/ML VIAL IV PRN (18:00)
[2020-12-10] MEDS ORDERED: CLONIDINE 0.1MG TABLET PO PRN (18:00)
[2020-12-10] MEDS ORDERED: MAGNESIUM HYDROXIDE 400MG/5ML 30ML UDC PO PRN (18:00)
[2020-12-10] MEDS ORDERED: DIPHENHYDRAMINE 50MG/ML VIAL IV PRN (18:00)
[2020-12-10] MEDS ORDERED: ONDANSETRON HCL 4MG/2ML INJ IV PRN (18:00)
[2020-12-10 22:00] VITALS: BP 149/73
[2020-12-10] MEDS: SODIUM CHLORIDE 0.9% INJ 3ML FLUSH IVF SCH (23:39)
[2020-12-10] MEDS: ZOLPIDEM TARTRATE 5MG TABLET PO PRN (23:40)
[2020-12-10] MEDS: FAMOTIDINE 20MG TABLET PO SCH (23:40)
[2020-12-10] MEDS: ATORVASTATIN CALCIUM 10MG TABLET PO SCH (23:41)
[2020-12-10] MEDS: DOXAZOSIN MESYLATE 2MG TABLET PO SCH (23:41)
[2020-12-11] VITALS (19 sets, daily range): BP systolic 91–133; BP diastolic 38–68
[2020-12-11 06:13] LABS: BASOPHILS % 0.5 % (0.0-2.0); EOSINOPHILS % 1.2 % (0.0-5.0); HEMATOCRIT. 25.2 % (36.0-48.0); HEMOGLOBIN. 8.1 g/dL (12.0-16.0); LYMPHOCYTES % 15.1 % (20.0-50.0); MEAN CORPUSCULAR HEMOGLOBIN 24.8 pg (28.0-32.0); MEAN CORPUSCULAR VOLUME 76.7 fL (81.0-99.0); MEAN PLATELET VOLUME 8.2 fl (7.4-10.4); MONOCYTES % 7.2 % (2.0-8.0); PLATELET 188 x1000/uL (130-400); RED BLOOD CELL COUNT 3.28 mill/uL (4.2-5.4); RED CELL DISTRIBUTION WIDTH 18.3 % (11.6-14.6)
[2020-12-11] MEDS: SODIUM CHLORIDE 0.9% INJ 3ML FLUSH IVF SCH ×3 (06:47→23:11)
[2020-12-11] MEDS ORDERED: IOHEXOL-300 100 ML BOTTLE ONE (08:18)
[2020-12-11] MEDS ORDERED: HEPARIN 1000 UNITS/ML 10ML ONE (08:18)
[2020-12-11] MEDS ORDERED: LIDOCAINE HCL 1% 20ML VIAL (Pyxis) INJ ONE (08:18)
[2020-12-11] MEDS ORDERED: FENTANYL CITRATE/PF 50MCG/ML 2ML VIAL IV NR (08:35)
[2020-12-11] MEDS ORDERED: FENTANYL CITRATE/PF 50MCG/ML 2ML VIAL ONE (09:01)
[2020-12-11] MEDS: NIFEDIPINE XL 30MG TAB PO SCH (10:52)
[2020-12-11] MEDS: FOLIC ACID/VITAMIN B COMP W-C TABLET PO SCH (10:52)
[2020-12-11] MEDS: LISINOPRIL 10MG TABLET PO SCH (10:52)
[2020-12-11 14:20] LABS: HEPATITIS B SURFACE ANTIGEN NEGATIVE
[2020-12-11 14:49] LABS: HEPATITIS A AB IGM NEGATIVE (NEGATIVE)
[2020-12-11] MEDS: DOXAZOSIN MESYLATE 2MG TABLET PO SCH (21:00)
[2020-12-11] MEDS ORDERED: EPOETIN ALFA-EPBX 10,000 UNIT/ML VIAL SUBCUT SCH (21:00)
[2020-12-11] MEDS: ZOLPIDEM TARTRATE 5MG TABLET PO PRN (21:12)
[2020-12-11] MEDS: FAMOTIDINE 20MG TABLET PO SCH (21:13)
[2020-12-11] MEDS: ATORVASTATIN CALCIUM 10MG TABLET PO SCH (21:38)
[2020-12-12] VITALS (12 sets, daily range): BP systolic 92–140; BP diastolic 38–77
[2020-12-12] MEDS: SODIUM CHLORIDE 0.9% INJ 3ML FLUSH IVF SCH ×3 (05:41→21:05)
[2020-12-12] MEDS: NIFEDIPINE XL 30MG TAB PO SCH (08:39)
[2020-12-12] MEDS: FOLIC ACID/VITAMIN B COMP W-C TABLET PO SCH (08:40)
[2020-12-12] MEDS: LISINOPRIL 10MG TABLET PO SCH (08:40)
[2020-12-12 12:38] LABS: HEMOGLOBIN 7.3 g/dL (12.0-16.0); MEAN CORPUSCULAR VOLUME 75.4 fL (81.0-99.0); PLATELET 161 x1000/uL (130-400); RED BLOOD CELL COUNT 2.92 mill/uL (4.2-5.4); RED CELL DISTRIBUTION WIDTH 17.9 % (11.6-14.6)
[2020-12-12] MEDS: DOXAZOSIN MESYLATE 2MG TABLET PO SCH (21:05)
[2020-12-12] MEDS: FAMOTIDINE 20MG TABLET PO SCH (21:05)
[2020-12-12] MEDS: ATORVASTATIN CALCIUM 10MG TABLET PO SCH (21:05)
[2020-12-12 23:03] LABS: HEMATOCRIT 27.6 % (36.0-48.0); HEMOGLOBIN 9.5 g/dL (12.0-16.0)
[2020-12-12 23:05] LABS: INR 1.1; PROTHROMBIN TIME 11.3 sec (9.6-11.0)
[2020-12-12] MEDS: ZOLPIDEM TARTRATE 5MG TABLET PO PRN (23:39)
[2020-12-13] VITALS: BP 119/49
[2020-12-13 02:21] LABS: HEPATITIS B SURFACE ANTIGEN NEGATIVE
[2020-12-13 02:51] LABS: HEPATITIS A AB IGM NEGATIVE (NEGATIVE)
[2020-12-13 04:00] VITALS: BP 130/53
[2020-12-13] MEDS: SODIUM CHLORIDE 0.9% INJ 3ML FLUSH IVF SCH ×2 (05:12→14:52)
[2020-12-13 08:00] VITALS: BP 142/61
[2020-12-13] MEDS: FOLIC ACID/VITAMIN B COMP W-C TABLET PO SCH (08:45)
[2020-12-13] MEDS: NIFEDIPINE XL 30MG TAB PO SCH (08:46)
[2020-12-13] MEDS: LISINOPRIL 10MG TABLET PO SCH (08:46)
[2020-12-13 12:00] VITALS: BP 124/57
[2020-12-13 15:10] VITALS: BP 124/57
[2020-12-13 16:00] VITALS: BP 122/55
== END 2020-12-13 18:54 | disposition home or self-care (01) | DRG 252 ==
LOC: ER 12:37 → EDBEDREQTM 13:44 → EDBEDREQ 13:44 → 5WST 15:24 → EDBEDREQTM 15:27 → EDBEDREQ 15:27 → ENRESERV 21:14
PROVIDERS: ADMIT Internal Medicine; ATTEND Internal Medicine
PROC: 0HQCXZZ Repair Left Upper Arm Skin, External Approach (ICD-10-PCS; 2020-12-10)
PROC: 05763ZZ Dilation of Left Subclavian Vein, Percutaneous Approach (ICD-10-PCS; principal; 2020-12-11)
PROC: 05CY3ZZ Extirpation of Matter from Upper Vein, Percutaneous Approach (ICD-10-PCS; 2020-12-11)
PROC: B51N1ZZ Fluoroscopy of Left Upper Extremity Veins using Low Osmolar Contrast (ICD-10-PCS; 2020-12-11)
PROC: B5181ZZ Fluoroscopy of Superior Vena Cava using Low Osmolar Contrast (ICD-10-PCS; 2020-12-11)
PROC: 5A1D70Z Performance of Urinary Filtration, Intermittent, Less than 6 Hours Per Day (ICD-10-PCS; 2020-12-11)
PROC: 5A1D70Z Performance of Urinary Filtration, Intermittent, Less than 6 Hours Per Day (ICD-10-PCS; 2020-12-12)
PROC: 30233N1 Transfusion of Nonautologous Red Blood Cells into Peripheral Vein, Percutaneous Approach (ICD-10-PCS; 2020-12-12)
DX: T82.838A Hemorrhage due to vascular prosthetic devices, implants and grafts, initial encounter (principal); N18.6 End stage renal disease; D62 Acute posthemorrhagic anemia; I12.0 Hypertensive chronic kidney disease with stage 5 chronic kidney disease or end stage renal disease; N25.81 Secondary hyperparathyroidism of renal origin; J98.11 Atelectasis; I69.951 Hemiplegia and hemiparesis following unspecified cerebrovascular disease affecting right dominant side; D63.8 Anemia in other chronic diseases classified elsewhere; E78.5 Hyperlipidemia, unspecified; J44.9 Chronic obstructive pulmonary disease, unspecified; I95.9 Hypotension, unspecified; F41.9 Anxiety disorder, unspecified; Z20.822 Contact with and (suspected) exposure to COVID-19; Y84.1 Kidney dialysis as the cause of abnormal reaction of the patient, or of later complication, without mention of misadventure at the time of the procedure; E87.5 Hyperkalemia; Z82.49 Family history of ischemic heart disease and other diseases of the circulatory system; Z83.3 Family history of diabetes mellitus; Z87.891 Personal history of nicotine dependence; Z99.2 Dependence on renal dialysis; Y92.89 Other specified places as the place of occurrence of the external cause
CPT/HCPCS: 36415; 36902; 36907; 71045; 80048; 80053; 85014; 85018; 85025; 85027; 85384; 86705; 86709; 86803; 86850; 86900; 86920; 87340; 87426; 93005; 99291; C1725; C1766; C1769; C1887; J0885; J1644; J3010; J3490; J7030; J7040; P9016; Q9967

== ENCOUNTER 2021-02-17 20:19 | Inpatient (IN) | payer MEDICARE, MEDICAID ==
[~2021-02-17] VITALS: Ht 160 cm; Wt 84.4 kg
[2021-02-17] MEDS ORDERED: MORPHINE SULFATE 4 MG/ML CPJ (NOT FOR IM USE) IV STA (22:15)
[2021-02-17] MEDS ORDERED: ONDANSETRON HCL 4MG/2ML INJ IV STA (22:15)
[2021-02-17 22:48] LABS: HEMATOCRIT. 37.7 % (36.0-48.0); HEMOGLOBIN. 12.6 g/dL (12.0-16.0); MEAN PLATELET VOLUME 9.1 fl (7.4-10.4); PLATELET 184 x1000/uL (130-400); RED BLOOD CELL COUNT 5.02 mill/uL (4.2-5.4); RED CELL DISTRIBUTION WIDTH 17.5 % (11.6-14.6)
[2021-02-17 22:55] LABS: CHLORIDE 100 mEq/L (98-107)
[2021-02-17 22:58] LABS: PROTHROMBIN TIME 10.9 sec (9.6-11.0)
[2021-02-17 23:13] LABS: PLATELET ESTIMATE NORMAL
[2021-02-18 10:31] VITALS: BP 130/52
[2021-02-18] MEDS ORDERED: ONDANSETRON HCL 4MG/2ML INJ IV PRN (11:15)
[2021-02-18] MEDS ORDERED: MAGNESIUM/ALUMINUM HYDROXIDE/SIMETHICONE 30ML UDC PO PRN (11:15)
[2021-02-18] MEDS ORDERED: NALOXONE HCL 0.4MG/ML VIAL IV PRN (11:15)
[2021-02-18] MEDS: MORPHINE SULFATE 2 MG/ML CPJ (NOT FOR IM USE) IV PRN (11:26)
[2021-02-18 12:00] VITALS: BP 118/51
[2021-02-18] MEDS: SODIUM CHLORIDE 0.9% INJ 3ML FLUSH IVF SCH ×2 (14:12→21:34)
[2021-02-18 16:00] VITALS: BP 114/51
[2021-02-18 20:00] VITALS: BP 140/66
[2021-02-18] MEDS: ACETAMINOPHEN 325MG TABLET PO PRN (21:34)
[2021-02-19] VITALS: BP 134/50
[2021-02-19 04:00] VITALS: BP 138/63
[2021-02-19] MEDS: SODIUM CHLORIDE 0.9% INJ 3ML FLUSH IVF SCH ×3 (05:53→21:19)
[2021-02-19 08:00] VITALS: BP 141/60
[2021-02-19 11:46] LABS: HEMATOCRIT. 37.3 % (36.0-48.0); MEAN CORPUSCULAR HEMOGLOBIN 24.7 pg (28.0-32.0); MEAN PLATELET VOLUME 8.5 fl (7.4-10.4); PLATELET 167 x1000/uL (130-400); RED BLOOD CELL COUNT 4.85 mill/uL (4.2-5.4); RED CELL DISTRIBUTION WIDTH 18.1 % (11.6-14.6)
[2021-02-19 12:00] VITALS: BP 135/64
[2021-02-19 16:00] VITALS: BP 125/53
[2021-02-19] MEDS ORDERED: THROAT LOZENGES-BENZOCAINE/MENTH/CETYLPYRD CL LOZENGES MM PRN (16:00)
[2021-02-19 16:36] LABS: PLATELET ESTIMATE NORMAL
[2021-02-19 17:39] LABS: HEPATITIS B SURFACE ANTIGEN NEGATIVE
[2021-02-19 20:00] VITALS: BP 154/65
[2021-02-19] MEDS: ACETAMINOPHEN 325MG TABLET PO PRN (21:19)
[2021-02-20] VITALS: BP 128/53
[2021-02-20 04:00] VITALS: BP 132/57
[2021-02-20] MEDS: SODIUM CHLORIDE 0.9% INJ 3ML FLUSH IVF SCH ×3 (05:38→21:13)
[2021-02-20] MEDS: MORPHINE SULFATE 2 MG/ML CPJ (NOT FOR IM USE) IV PRN ×2 (05:39→23:09)
[2021-02-20 08:00] VITALS: BP 82/49
[2021-02-20 12:00] VITALS: BP 134/48
[2021-02-20 16:00] VITALS: BP 158/63
[2021-02-20] MEDS: ACETAMINOPHEN 325MG TABLET PO PRN ×2 (16:05→21:14)
[2021-02-20 20:00] VITALS: BP 125/62
[2021-02-20] MEDS ORDERED: CEPH500C2 MT (20:08)
[2021-02-20] MEDS: CEPHALEXIN 250MG CAPSULE PO SCH (21:16)
[2021-02-20] MEDS: PROMETHAZINE/DEXTROMETHORPHAN 6.25-15MG/5ML BOTTLE 120ML PO PRN (22:00)
[2021-02-21] VITALS: BP 112/56
[2021-02-21] MEDS ORDERED: IPRATROPIUM/ALBUTEROL 0.5-3(2.5)MG/3ML NEB HHN SCH
[2021-02-21] MEDS: ACETAMINOPHEN 325MG TABLET PO PRN ×2 (01:23→15:29)
[2021-02-21 04:00] VITALS: BP 137/56
[2021-02-21] MEDS ORDERED: CEFTRIAXONE 1 G PREMIX 50 ML IV SCH (04:30)
[2021-02-21] MEDS: SODIUM CHLORIDE 0.9% INJ 3ML FLUSH IVF SCH ×3 (06:00→22:54)
[2021-02-21] MEDS ORDERED: ALBUTEROL 6.7GM HFA INHALER ORI PRN (07:15)
[2021-02-21] MEDS: ERGOCALCIFEROL 50000UNITS CAPSULE PO SCH (09:21)
[2021-02-21] MEDS: DEXAMETHASONE 4MG/ML 1ML VIAL IV SCH (09:22)
[2021-02-21] MEDS: CEFTRIAXONE 1,000 MG in DEXTROSE 5% WATER 50 ML IV SCH (09:22)
[2021-02-21 12:00] VITALS: BP 160/68
[2021-02-21 16:00] VITALS: BP 126/56
[2021-02-21 19:52] LABS: BASOPHILS % 0.4 % (0.0-2.0); HEMATOCRIT. 40.7 % (36.0-48.0); HEMOGLOBIN. 13.5 g/dL (12.0-16.0); LYMPHOCYTES % 17.9 % (20.0-50.0); MEAN CORPUSCULAR HEMOGLOBIN 25.2 pg (28.0-32.0); MEAN CORPUSCULAR VOLUME 75.8 fL (81.0-99.0); MONOCYTES % 7.9 % (2.0-8.0); NEUTROPHILS % 73.8 % (40.0-76.0); PLATELET 166 x1000/uL (130-400); RED BLOOD CELL COUNT 5.37 mill/uL (4.2-5.4); RED CELL DISTRIBUTION WIDTH 17.6 % (11.6-14.6)
[2021-02-21 20:00] VITALS: BP 103/56
[2021-02-21] MEDS: CEPHALEXIN 250MG CAPSULE PO SCH (22:54)
[2021-02-22] VITALS: BP 110/70
[2021-02-22 04:00] VITALS: BP 105/75
[2021-02-22] MEDS: SODIUM CHLORIDE 0.9% INJ 3ML FLUSH IVF SCH ×2 (06:00→23:15)
[2021-02-22 08:00] VITALS: BP 123/49
[2021-02-22] MEDS: ACETAMINOPHEN 325MG TABLET PO PRN ×2 (08:25→23:15)
[2021-02-22] MEDS: CEFTRIAXONE 1,000 MG in DEXTROSE 5% WATER 50 ML IV SCH (09:13)
[2021-02-22] MEDS: DEXAMETHASONE 4MG/ML 1ML VIAL IV SCH (09:13)
[2021-02-22 12:00] VITALS: BP 113/49
[2021-02-22 16:00] VITALS: BP 101/49
[2021-02-22 20:00] VITALS: BP 140/55
[2021-02-22] MEDS: CEPHALEXIN 250MG CAPSULE PO SCH (23:15)
[2021-02-23] VITALS: BP 104/55
[2021-02-23 04:00] VITALS: BP 144/59
[2021-02-23] MEDS: SODIUM CHLORIDE 0.9% INJ 3ML FLUSH IVF SCH ×2 (05:51→22:00)
[2021-02-23 08:00] VITALS: BP 169/49
[2021-02-23] MEDS: CEFTRIAXONE 1,000 MG in DEXTROSE 5% WATER 50 ML IV SCH (09:01)
[2021-02-23] MEDS: DEXAMETHASONE 4MG/ML 1ML VIAL IV SCH (09:01)
[2021-02-23 12:00] VITALS: BP 148/53
[2021-02-23] MEDS: DEXAMETHASONE 4MG TABLET PO SCH ×2 (12:23→17:12)
[2021-02-23 16:00] VITALS: BP_SYST 112; BP_SYST 123; BP_DIAS 54; BP_DIAS 79
[2021-02-23] MEDS: ACETAMINOPHEN 325MG TABLET PO PRN (17:12)
[2021-02-23 20:00] VITALS: BP 117/51
[2021-02-23] MEDS: CEPHALEXIN 250MG CAPSULE PO SCH (21:15)
[2021-02-24] VITALS: BP 133/57
[2021-02-24] MEDS: DEXAMETHASONE 4MG TABLET PO SCH ×4 (01:39→17:27)
[2021-02-24 04:00] VITALS: BP 128/56
[2021-02-24] MEDS: SODIUM CHLORIDE 0.9% INJ 3ML FLUSH IVF SCH ×3 (06:00→21:33)
[2021-02-24 08:00] VITALS: BP 117/51
[2021-02-24] MEDS: CEFTRIAXONE 1,000 MG in DEXTROSE 5% WATER 50 ML IV SCH ×2 (09:00→14:22)
[2021-02-24 12:00] VITALS: BP 129/60
[2021-02-24] MEDS: ACETAMINOPHEN 325MG TABLET PO PRN (14:31)
[2021-02-24 16:00] VITALS: BP 133/67
[2021-02-24] MEDS: THROAT LOZENGES-BENZOCAINE/MENTH/CETYLPYRD CL LOZENGES MM PRN ×2 (16:16→22:42)
[2021-02-24] MEDS: ENOXAPARIN 30MG/0.3ML SYR SUBCUT SCH (18:30)
[2021-02-24 20:00] VITALS: BP 114/52
[2021-02-24] MEDS: CEPHALEXIN 250MG CAPSULE PO SCH (21:32)
[2021-02-24] MEDS: PROMETHAZINE/DEXTROMETHORPHAN 6.25-15MG/5ML BOTTLE 120ML PO PRN (23:43)
[2021-02-24] MEDS: CLONIDINE 0.1MG TABLET PO PRN (23:43)
[2021-02-25] VITALS: BP 164/81
[2021-02-25] MEDS: DEXAMETHASONE 4MG TABLET PO SCH ×4 (00:12→17:04)
[2021-02-25] MEDS: ACETAMINOPHEN 325MG TABLET PO PRN ×4 (00:34→19:12)
[2021-02-25 04:00] VITALS: BP 108/52
[2021-02-25] MEDS: SODIUM CHLORIDE 0.9% INJ 3ML FLUSH IVF SCH ×3 (05:18→21:01)
[2021-02-25 06:40] LABS: HEMATOCRIT. 40.8 % (36.0-48.0); HEMOGLOBIN. 13.3 g/dL (12.0-16.0); MEAN CORPUSCULAR HEMOGLOBIN 24.3 pg (28.0-32.0); MEAN CORPUSCULAR VOLUME 74.6 fL (81.0-99.0); MEAN PLATELET VOLUME 9.7 fl (7.4-10.4); PLATELET 208 x1000/uL (130-400); RED BLOOD CELL COUNT 5.47 mill/uL (4.2-5.4); RED CELL DISTRIBUTION WIDTH 17.6 % (11.6-14.6)
[2021-02-25 08:00] VITALS: BP 98/43
[2021-02-25] MEDS: CEFTRIAXONE 1,000 MG in DEXTROSE 5% WATER 50 ML IV SCH (08:13)
[2021-02-25 12:00] VITALS: BP 109/45
[2021-02-25 16:00] VITALS: BP 138/56
[2021-02-25] MEDS: ENOXAPARIN 30MG/0.3ML SYR SUBCUT SCH (17:04)
[2021-02-25 18:32] LABS: PLATELET ESTIMATE NORMAL
[2021-02-25 20:00] VITALS: BP 119/55
[2021-02-25 22:18] LABS: HEPATITIS B SURFACE ANTIGEN NEGATIVE
[2021-02-26] MEDS: DEXAMETHASONE 4MG TABLET PO SCH ×4 (00:34→17:18)
[2021-02-26 00:44] VITALS: BP 143/43
[2021-02-26 04:00] VITALS: BP 128/59
[2021-02-26] MEDS: SODIUM CHLORIDE 0.9% INJ 3ML FLUSH IVF SCH ×3 (05:37→22:00)
[2021-02-26] MEDS: GUAIFENESIN 600MG ER TABLET PO SCH ×2 (09:34→21:00)
[2021-02-26 12:00] VITALS: BP 104/56
[2021-02-26 16:00] VITALS: BP 108/62
[2021-02-26] MEDS: ENOXAPARIN 30MG/0.3ML SYR SUBCUT SCH (17:18)
[2021-02-26 20:00] VITALS: BP 134/58
[2021-02-26] MEDS ORDERED: DIPHENHYDRAMINE 50MG CAPSULE PO PRN (23:30)
[2021-02-27] VITALS: BP 129/66
[2021-02-27] MEDS: DEXAMETHASONE 4MG TABLET PO SCH ×3 (00:06→12:59)
[2021-02-27 04:00] VITALS: BP 152/67
[2021-02-27] MEDS: SODIUM CHLORIDE 0.9% INJ 3ML FLUSH IVF SCH ×3 (06:13→21:49)
[2021-02-27] MEDS: GUAIFENESIN 600MG ER TABLET PO SCH ×2 (08:48→21:48)
[2021-02-27 12:00] VITALS: BP 129/61
[2021-02-27 16:00] VITALS: BP 128/56
[2021-02-27 16:50] LABS: HEPATITIS B SURFACE ANTIGEN NEGATIVE
[2021-02-27] MEDS: ENOXAPARIN 30MG/0.3ML SYR SUBCUT SCH (16:50)
[2021-02-27 20:00] VITALS: BP 168/65
[2021-02-28] VITALS: BP 146/60
[2021-02-28 04:00] VITALS: BP 128/51
[2021-02-28] MEDS: SODIUM CHLORIDE 0.9% INJ 3ML FLUSH IVF SCH ×3 (06:00→21:02)
[2021-02-28 08:00] VITALS: BP 177/78
[2021-02-28] MEDS: DEXAMETHASONE 6MG TABLET PO SCH (08:30)
[2021-02-28] MEDS: ERGOCALCIFEROL 50000UNITS CAPSULE PO SCH (08:30)
[2021-02-28] MEDS: GUAIFENESIN 600MG ER TABLET PO SCH ×2 (08:31→21:01)
[2021-02-28] MEDS: CLONIDINE 0.1MG TABLET PO PRN (09:38)
[2021-02-28 12:00] VITALS: BP 119/56
[2021-02-28 16:00] VITALS: BP 145/57
[2021-02-28] MEDS: ENOXAPARIN 30MG/0.3ML SYR SUBCUT SCH (17:00)
[2021-02-28 20:00] VITALS: BP 162/58
[2021-03-01] VITALS: BP 171/61
[2021-03-01 04:00] VITALS: BP 157/51
[2021-03-01] MEDS: SODIUM CHLORIDE 0.9% INJ 3ML FLUSH IVF SCH ×3 (06:05→20:15)
[2021-03-01 06:12] LABS: QFT MITOGEN VALUE 0.11 IU/mL (.); QFT TB GOLD PLUS Indeterminate (Negative); QFT TB1 AG VALUE 0.04 IU/mL (.)
[2021-03-01] MEDS: GUAIFENESIN 600MG ER TABLET PO SCH ×2 (09:13→20:15)
[2021-03-01] MEDS: DEXAMETHASONE 6MG TABLET PO SCH (09:13)
[2021-03-01 12:00] VITALS: BP 132/46
[2021-03-01] MEDS: ENOXAPARIN 30MG/0.3ML SYR SUBCUT SCH (15:48)
[2021-03-01 16:00] VITALS: BP 119/68
[2021-03-01 18:05] LABS: HEMATOCRIT. 38.6 % (36.0-48.0); MEAN CORPUSCULAR HEMOGLOBIN 24.5 pg (28.0-32.0); MEAN PLATELET VOLUME 9.3 fl (7.4-10.4); PLATELET 235 x1000/uL (130-400); RED BLOOD CELL COUNT 5.29 mill/uL (4.2-5.4); RED CELL DISTRIBUTION WIDTH 17.4 % (11.6-14.6)
[2021-03-01 19:02] LABS: PLATELET ESTIMATE NORMAL
[2021-03-01 19:57] LABS: HEPATITIS B SURFACE ANTIGEN NEGATIVE
[2021-03-01 20:00] VITALS: BP 179/58
[2021-03-01] MEDS ORDERED: MAGNESIUM HYDROXIDE 400MG/5ML 30ML UDC PO PRN (23:45)
[2021-03-01] MEDS: DOCUSATE SODIUM 100MG CAPSULE PO SCH (23:57)
[2021-03-02] VITALS: BP 133/73
[2021-03-02 04:00] VITALS: BP 149/65
[2021-03-02 07:07] LABS: CHLORIDE 91 mEq/L (98-107)
[2021-03-02 08:00] VITALS: BP 168/71
[2021-03-02] MEDS: GUAIFENESIN 600MG ER TABLET PO SCH ×2 (08:29→21:41)
[2021-03-02] MEDS: DOCUSATE SODIUM 100MG CAPSULE PO SCH ×2 (08:29→16:03)
[2021-03-02] MEDS: DEXAMETHASONE 6MG TABLET PO SCH (08:29)
[2021-03-02] MEDS: CLONIDINE 0.1MG TABLET PO PRN (09:53)
[2021-03-02 12:00] VITALS: BP 125/63
[2021-03-02] MEDS: SODIUM CHLORIDE 0.9% INJ 3ML FLUSH IVF SCH ×2 (13:41→21:41)
[2021-03-02 16:00] VITALS: BP 130/89
[2021-03-02] MEDS: ENOXAPARIN 30MG/0.3ML SYR SUBCUT SCH (16:03)
[2021-03-02 20:29] VITALS: BP 117/55
[2021-03-03 00:30] VITALS: BP 145/64
[2021-03-03 04:00] VITALS: BP 137/59
[2021-03-03] MEDS: SODIUM CHLORIDE 0.9% INJ 3ML FLUSH IVF SCH ×3 (06:00→21:03)
[2021-03-03 08:00] VITALS: BP 166/58
[2021-03-03] MEDS: DOCUSATE SODIUM 100MG CAPSULE PO SCH ×2 (09:25→16:59)
[2021-03-03] MEDS: DEXAMETHASONE 6MG TABLET PO SCH (09:25)
[2021-03-03] MEDS: GUAIFENESIN 600MG ER TABLET PO SCH ×2 (09:25→21:03)
[2021-03-03 12:00] VITALS: BP 135/62
[2021-03-03 16:00] VITALS: BP 137/49
[2021-03-03] MEDS: ENOXAPARIN 30MG/0.3ML SYR SUBCUT SCH (16:59)
[2021-03-03 19:36] LABS: HEMATOCRIT. 41.4 % (36.0-48.0); HEMOGLOBIN. 13.4 g/dL (12.0-16.0); MEAN CORPUSCULAR HEMOGLOBIN 24.2 pg (28.0-32.0); MEAN CORPUSCULAR VOLUME 74.6 fL (81.0-99.0); PLATELET 216 x1000/uL (130-400); RED BLOOD CELL COUNT 5.55 mill/uL (4.2-5.4); RED CELL DISTRIBUTION WIDTH 17.7 % (11.6-14.6)
[2021-03-03 20:00] VITALS: BP 147/61
[2021-03-03 20:56] LABS: PLATELET ESTIMATE NORMAL
[2021-03-04] VITALS: BP 135/72
[2021-03-04 04:00] VITALS: BP 125/77
[2021-03-04] MEDS: SODIUM CHLORIDE 0.9% INJ 3ML FLUSH IVF SCH ×3 (05:48→22:00)
[2021-03-04 07:50] LABS: HEPATITIS B SURFACE ANTIGEN NEGATIVE
[2021-03-04 08:00] VITALS: BP 160/61
[2021-03-04] MEDS: GUAIFENESIN 600MG ER TABLET PO SCH ×2 (09:29→21:59)
[2021-03-04] MEDS: DOCUSATE SODIUM 100MG CAPSULE PO SCH ×2 (09:29→17:52)
[2021-03-04] MEDS: DEXAMETHASONE 6MG TABLET PO SCH (09:29)
[2021-03-04 12:00] VITALS: BP 134/48
[2021-03-04 16:00] VITALS: BP 128/53
[2021-03-04] MEDS: ENOXAPARIN 30MG/0.3ML SYR SUBCUT SCH (17:54)
[2021-03-04 20:00] VITALS: BP 143/61
[2021-03-05] VITALS (7 sets, daily range): BP systolic 136–173; BP diastolic 51–68
[2021-03-05] MEDS: SODIUM CHLORIDE 0.9% INJ 3ML FLUSH IVF SCH ×2 (06:35→18:12)
[2021-03-05] MEDS: DOCUSATE SODIUM 100MG CAPSULE PO SCH ×2 (09:00→17:00)
[2021-03-05] MEDS: DEXAMETHASONE 6MG TABLET PO SCH (09:28)
[2021-03-05] MEDS: GUAIFENESIN 600MG ER TABLET PO SCH ×2 (09:28→20:55)
[2021-03-05] MEDS ORDERED: IPRATROPIUM/ALBUTEROL 0.5-3(2.5)MG/3ML NEB HHN PRN (11:30)
[2021-03-05 17:36] LABS: HEPATITIS B SURFACE ANTIGEN NEGATIVE
[2021-03-05] MEDS: ENOXAPARIN 30MG/0.3ML SYR SUBCUT SCH (18:12)
== END 2021-03-05 22:10 | disposition home health service (06) | DRG 871 ==
LOC: ER 20:19 → MICUSO 02-18 01:15 → EDBEDREQTM 02-18 01:19 → EDBEDREQSVC 02-18 01:19 → EDBEDREQ 02-18 01:19 → ENRESERV 02-18 08:40 → 6EST 02-18 08:44 → 7WST 02-21 10:29 → 7EST 03-05 03:00
PROVIDERS: ADMIT Internal Medicine; ATTEND Internal Medicine
PROC: 5A1D70Z Performance of Urinary Filtration, Intermittent, Less than 6 Hours Per Day (ICD-10-PCS; 2021-02-17)
PROC: 5A1D70Z Performance of Urinary Filtration, Intermittent, Less than 6 Hours Per Day (ICD-10-PCS; 2021-02-19)
PROC: 5A1D70Z Performance of Urinary Filtration, Intermittent, Less than 6 Hours Per Day (ICD-10-PCS; 2021-02-21)
PROC: 02HV33Z Insertion of Infusion Device into Superior Vena Cava, Percutaneous Approach (ICD-10-PCS; principal; 2021-02-24)
PROC: B548ZZA Ultrasonography of Superior Vena Cava, Guidance (ICD-10-PCS; 2021-02-24)
PROC: 5A1D70Z Performance of Urinary Filtration, Intermittent, Less than 6 Hours Per Day (ICD-10-PCS; 2021-02-24)
PROC: 5A1D70Z Performance of Urinary Filtration, Intermittent, Less than 6 Hours Per Day (ICD-10-PCS; 2021-02-26)
PROC: 5A1D70Z Performance of Urinary Filtration, Intermittent, Less than 6 Hours Per Day (ICD-10-PCS; 2021-03-01)
PROC: 5A1D70Z Performance of Urinary Filtration, Intermittent, Less than 6 Hours Per Day (ICD-10-PCS; 2021-03-02)
PROC: 5A1D70Z Performance of Urinary Filtration, Intermittent, Less than 6 Hours Per Day (ICD-10-PCS; 2021-03-04)
PROC: 5A1D70Z Performance of Urinary Filtration, Intermittent, Less than 6 Hours Per Day (ICD-10-PCS; 2021-03-05)
DX: A41.89 Other specified sepsis (principal); U07.1 COVID-19; J96.01 Acute respiratory failure with hypoxia; N18.6 End stage renal disease; J12.82 Pneumonia due to coronavirus disease 2019; I12.0 Hypertensive chronic kidney disease with stage 5 chronic kidney disease or end stage renal disease; E87.1 Hypo-osmolality and hyponatremia; I69.354 Hemiplegia and hemiparesis following cerebral infarction affecting left non-dominant side; N25.81 Secondary hyperparathyroidism of renal origin; J44.0 Chronic obstructive pulmonary disease with (acute) lower respiratory infection; R65.20 Severe sepsis without septic shock; D63.8 Anemia in other chronic diseases classified elsewhere; K57.30 Diverticulosis of large intestine without perforation or abscess without bleeding; N83.201 Unspecified ovarian cyst, right side; N83.202 Unspecified ovarian cyst, left side; F41.9 Anxiety disorder, unspecified; E78.5 Hyperlipidemia, unspecified; E87.5 Hyperkalemia; Z96.643 Presence of artificial hip joint, bilateral; R53.81 Other malaise; Z82.49 Family history of ischemic heart disease and other diseases of the circulatory system; Z87.891 Personal history of nicotine dependence; Z99.2 Dependence on renal dialysis; Z79.899 Other long term (current) drug therapy; Z83.3 Family history of diabetes mellitus
CPT/HCPCS: 36415; 71045; 74176; 76830; 76856; 76937; 80048; 80053; 82962; 83605; 85025; 86480; 86705; 86706; 86709; 86803; 87340; 87426; 93005; 93970; 99285; C1725; C1893; J0696; J1100; J1650; J2270; J2405; J7040; J7060; J8540; Q0163; U0003; U0005

== ENCOUNTER 2021-05-26 19:32 | Inpatient (IN) | payer MEDICARE, MEDICAID ==
[~2021-05-26] VITALS: Ht 160 cm; Wt 86.2 kg
[~2021-05-26 19:32] MED LIST changes: -BENA1TAB21 MT; +CEPH500C2 MT; -DOXA1TAB2 PO; -FURO20TA4 MT; -LISI-652 PO; -Nifedipine PO
[2021-05-26 20:44] LABS: BASOPHILS % 0.5 % (0.0-2.0); EOSINOPHILS % 0.7 % (0.0-5.0); HEMATOCRIT. 32.7 % (36.0-48.0); HEMOGLOBIN. 10.7 g/dL (12.0-16.0); LYMPHOCYTES % 16.6 % (20.0-50.0); MEAN CORPUSCULAR HEMOGLOBIN 24.3 pg (28.0-32.0); MEAN CORPUSCULAR VOLUME 74.4 fL (81.0-99.0); MEAN PLATELET VOLUME 7.8 fl (7.4-10.4); MONOCYTES % 12.7 % (2.0-8.0); NEUTROPHILS % 69.5 % (40.0-76.0); PLATELET 214 x1000/uL (130-400); RED BLOOD CELL COUNT 4.39 mill/uL (4.2-5.4); RED CELL DISTRIBUTION WIDTH 17.7 % (11.6-14.6)
[2021-05-26] MEDS ORDERED: PIPERACILLIN/TAZ 3.375G PREMIX 50 ML IV ONE (20:45)
[2021-05-26] MEDS ORDERED: VANCOMYCIN 1G PREMIX 200 ML IV ONE (20:45)
[2021-05-26 20:49] LABS: CHLORIDE 97 mEq/L (98-107)
[2021-05-26] MEDS ORDERED: MORPHINE SULFATE 4 MG/ML CPJ (NOT FOR IM USE) IV STA (21:07)
[2021-05-26] MEDS ORDERED: ONDANSETRON HCL 4MG/2ML INJ IV STA (21:07)
[2021-05-27 09:00] VITALS: BP 131/45
[2021-05-27 10:13] VITALS: BP 131/45
[2021-05-27] MEDS ORDERED: AMLO-337 PO (10:46)
[2021-05-27] MEDS ORDERED: BENA40TA9 PO (10:46)
[2021-05-27] MEDS ORDERED: LORA10TA7 PO (10:46)
[2021-05-27] MEDS ORDERED: SEVE800T8 PO (10:46)
[2021-05-27] MEDS ORDERED: ACET650T37 PO (10:46)
[2021-05-27] MEDS ORDERED: FURO20TA4 PO (10:46)
[2021-05-27] MEDS ORDERED: NALOXONE HCL 0.4MG/ML VIAL IV PRN (11:30)
[2021-05-27 12:00] VITALS: BP 133/53
[2021-05-27] MEDS: SEVELAMER CARBONATE 800 MG TABLET PO SCH ×2 (13:01→17:18)
[2021-05-27 14:11] LABS: CHLORIDE 99 mEq/L (98-107)
[2021-05-27] MEDS ORDERED: HYDROCODONE/ACETAMINOPHEN 10/325MG TABLET PO PRN (15:30)
[2021-05-27] MEDS: HYDROCODONE/APAP 7.5/325MG 1 TAB TABLET PO PRN (15:44)
[2021-05-27 16:00] VITALS: BP 132/54
[2021-05-27 16:11] LABS: HEMATOCRIT. 31.3 % (36.0-48.0); MEAN CORPUSCULAR HEMOGLOBIN 24.1 pg (28.0-32.0); MEAN CORPUSCULAR VOLUME 75.7 fL (81.0-99.0); MEAN PLATELET VOLUME 7.8 fl (7.4-10.4); PLATELET 191 x1000/uL (130-400); RED BLOOD CELL COUNT 4.14 mill/uL (4.2-5.4); RED CELL DISTRIBUTION WIDTH 17.6 % (11.6-14.6)
[2021-05-27 17:05] LABS: HEPATITIS B SURFACE ANTIGEN NEGATIVE
[2021-05-27 17:25] LABS: PLATELET ESTIMATE NORMAL
[2021-05-27 20:00] VITALS: BP 135/57
[2021-05-27] MEDS: ATORVASTATIN CALCIUM 10MG TABLET PO SCH (23:00)
[2021-05-28] VITALS: BP 127/55
[2021-05-28] MEDS: HYDROCODONE/APAP 7.5/325MG 1 TAB TABLET PO PRN ×2 (01:02→18:31)
[2021-05-28 04:00] VITALS: BP 123/51
[2021-05-28 07:23] LABS: BASOPHILS % 1.1 % (0.0-2.0); EOSINOPHILS % 3.2 % (0.0-5.0); HEMATOCRIT. 33.1 % (36.0-48.0); HEMOGLOBIN. 10.7 g/dL (12.0-16.0); LYMPHOCYTES % 25.5 % (20.0-50.0); MEAN CORPUSCULAR HEMOGLOBIN 24.3 pg (28.0-32.0); MEAN CORPUSCULAR VOLUME 75.2 fL (81.0-99.0); MEAN PLATELET VOLUME 8.4 fl (7.4-10.4); MONOCYTES % 13.8 % (2.0-8.0); NEUTROPHILS % 56.4 % (40.0-76.0); PLATELET 202 x1000/uL (130-400); RED BLOOD CELL COUNT 4.41 mill/uL (4.2-5.4)
[2021-05-28 07:30] LABS: CHLORIDE 96 mEq/L (98-107)
[2021-05-28 07:34] LABS: LDL CHOLESTEROL 110 mg/dL (5-100)
[2021-05-28 07:36] LABS: HDL CHOLESTEROL 47 mg/dL (40-59)
[2021-05-28 08:00] VITALS: BP 120/44
[2021-05-28] MEDS: SEVELAMER CARBONATE 800 MG TABLET PO SCH ×3 (08:20→17:00)
[2021-05-28 12:00] VITALS: BP 148/58
[2021-05-28 16:00] VITALS: BP 167/62
[2021-05-28] MEDS ORDERED: CEFAZOLIN 1000MG PREMIX 50 ML IV SCH (17:00)
[2021-05-28 18:09] LABS: HEMATOCRIT 32.4 % (36.0-48.0); HEMOGLOBIN 10.6 g/dL (12.0-16.0); MEAN CORPUSCULAR HEMOGLOBIN 24.4 pg (28.0-32.0); MEAN CORPUSCULAR VOLUME 74.8 fL (81.0-99.0); PLATELET 185 x1000/uL (130-400); RED BLOOD CELL COUNT 4.33 mill/uL (4.2-5.4); RED CELL DISTRIBUTION WIDTH 17.6 % (11.6-14.6)
[2021-05-28] MEDS ORDERED: VANCOMYCIN 1G PREMIX 200 ML IV NR (18:30)
[2021-05-28 20:00] VITALS: BP 120/44
[2021-05-28] MEDS: ATORVASTATIN CALCIUM 10MG TABLET PO SCH (20:06)
[2021-05-29] VITALS (30 sets, daily range): BP systolic 77–138; BP diastolic 39–90
[2021-05-29] MEDS ORDERED: LIDOCAINE HCL 1% 20ML VIAL (Pyxis) INJ ONE (06:29)
[2021-05-29] MEDS ORDERED: THROMBIN (BOVINE) 5000 UNITS/VIAL TOP ONE (06:29)
[2021-05-29] MEDS ORDERED: HEPARIN SODIUM 1,000 UNIT/1ML VIAL IV ONE (06:30)
[2021-05-29] MEDS ORDERED: BUPIVACAINE HCL/PF 0.5% (5MG/ML) 10ML ONE (06:30)
[2021-05-29] MEDS ORDERED: FENTANYL CITRATE/PF 50MCG/ML 2ML VIAL ONE (07:35)
[2021-05-29] MEDS ORDERED: PROPOFOL 200MG/20ML VIAL IV ONE ×2 (07:35→09:00)
[2021-05-29] MEDS ORDERED: MIDAZOLAM HCL 2 MG/2 ML VIAL ONE (07:35)
[2021-05-29] MEDS ORDERED: HYDROMORPHONE HCL/PF 2MG/ML CPJ IV PRN ×2 (08:45→10:00)
[2021-05-29] MEDS ORDERED: ONDANSETRON HCL 4MG/2ML INJ IV PRN ×2 (08:45→10:00)
[2021-05-29] MEDS ORDERED: LABETALOL 5MG/ML SYR 20 MG/4 ML SYRINGE IV PRN ×2 (08:45→10:00)
[2021-05-29] MEDS ORDERED: MEPERIDINE HCL/PF 25MG/ML CPJ IV PRN ×2 (08:45→10:00)
[2021-05-29] MEDS ORDERED: DEXAMETHASONE 4MG/ML 1ML VIAL ONE (08:54)
[2021-05-29] MEDS: SEVELAMER CARBONATE 800 MG TABLET PO SCH ×3 (09:00→16:54)
[2021-05-29] MEDS ORDERED: ROPIVACAINE HCL/PF EPIDURAL 200 ML EPI ONE (09:08)
[2021-05-29 11:15] LABS: BG BASE EXCESS 0.2 mmol/L (-2.0-2.0); BG CARBOXYHEMOGLOBIN 0.3 % (0.5-1.5); BG DEOXYHEMOGLOBIN 2.1 % (0.0-5.0); BG FRACTION INSPIRED OXYGEN 70; BG HCO3 ACT 26.4 mmol/L (22.0-26.0); BG METHEMOGLOBIN 0.4 % (0.0-1.5); BG OXYGEN SATURATION 97.9 % (92.0-98.5); BG OXYHEMOGLOBIN 97.2 % (94.0-97.0); BG PCO2 50.1 mmHg (35.0-45.0); BG PH 7.339 (7.350-7.450); BG PO2 134.8 mmHg (75.0-100.0); BG SAMPLE SITE RIGHT RADIAL; BG TOTAL HEMOGLOBIN 9.7 g/dL (12.0-18.0); BG TOTAL RESPIRATORY RATE 25 b/min; BG VENT MODE MASK - SIMPLE
[2021-05-29 11:15] LABS: BASOPHILS % 0.6 % (0.0-2.0); EOSINOPHILS % 0.2 % (0.0-5.0); HEMATOCRIT. 27.8 % (36.0-48.0); HEMOGLOBIN. 8.9 g/dL (12.0-16.0); MEAN CORPUSCULAR HEMOGLOBIN 24.2 pg (28.0-32.0); MEAN CORPUSCULAR VOLUME 75.7 fL (81.0-99.0); MEAN PLATELET VOLUME 8.5 fl (7.4-10.4); MONOCYTES % 9.8 % (2.0-8.0); NEUTROPHILS % 78.4 % (40.0-76.0); PLATELET 184 x1000/uL (130-400); RED BLOOD CELL COUNT 3.67 mill/uL (4.2-5.4); RED CELL DISTRIBUTION WIDTH 17.2 % (11.6-14.6)
[2021-05-29] MEDS ORDERED: VANCOMYCIN 1G PREMIX 200 ML IV NR (13:00)
[2021-05-29] MEDS ORDERED: ALBUMIN HUMAN 25GM/500ML (5%) IV NR (13:00)
[2021-05-29] MEDS ORDERED: IOHEXOL-350 100 ML BOTTLE ONE (14:17)
[2021-05-29] MEDS: ASPIRIN 325MG EC TABLET PO SCH (15:18)
[2021-05-29] MEDS: ATORVASTATIN CALCIUM 20MG TABLET PO SCH (22:39)
[2021-05-30] VITALS (53 sets, daily range): BP systolic 107–185; BP diastolic 51–83
[2021-05-30 05:53] LABS: HEMOGLOBIN. 7.1 g/dL (12.0-16.0); MEAN CORPUSCULAR HEMOGLOBIN 24.4 pg (28.0-32.0); MEAN CORPUSCULAR VOLUME 75.8 fL (81.0-99.0); RED CELL DISTRIBUTION WIDTH 17.6 % (11.6-14.6)
[2021-05-30 07:45] LABS: PLATELET ESTIMATE NORMAL
[2021-05-30 07:46] LABS: MEAN PLATELET VOLUME 9.2 fl (7.4-10.4); PLATELET 180 x1000/uL (130-400)
[2021-05-30] MEDS: SEVELAMER CARBONATE 800 MG TABLET PO SCH ×4 (09:55→17:16)
[2021-05-30] MEDS: ASPIRIN 325MG EC TABLET PO SCH (09:55)
[2021-05-30 10:44] LABS: INR 1.1; PROTHROMBIN TIME 11.6 sec (9.6-11.0)
[2021-05-30] MEDS ORDERED: FENTANYL CITRATE/PF 50MCG/ML 2ML VIAL ONE (11:29)
[2021-05-30] MEDS ORDERED: LIDOCAINE HCL 1% 20ML VIAL (Pyxis) INJ ONE (11:53)
[2021-05-30] MEDS ORDERED: HEPARIN 100 UNITS/1 ML VIAL IVF PRN (12:30)
[2021-05-30] MEDS ORDERED: FENTANYL CITRATE/PF 50MCG/ML 2ML VIAL IV ONE (12:45)
[2021-05-30] MEDS ORDERED: FENTANYL CITRATE/PF 50MCG/ML 2ML VIAL IV SCH (12:45)
[2021-05-30] MEDS: HYDROCODONE/APAP 7.5/325MG 1 TAB TABLET PO PRN (14:46)
[2021-05-30] MEDS ORDERED: VANCOMYCIN 500MG PREMIX 100 ML IV NR (17:00)
[2021-05-30] MEDS: ATORVASTATIN CALCIUM 20MG TABLET PO SCH (21:49)
[2021-05-30] MEDS: EPOETIN ALFA-EPBX 10,000 UNIT/ML VIAL SUBCUT SCH (21:50)
[2021-05-30] MEDS: HYDRALAZINE 20MG/ML VIAL IV PRN (21:52)
[2021-05-30] MEDS: ONDANSETRON HCL 4MG/2ML INJ IV PRN (23:15)
[2021-05-31] VITALS (16 sets, daily range): BP systolic 105–170; BP diastolic 45–92
[2021-05-31] MEDS: HYDROCODONE/APAP 7.5/325MG 1 TAB TABLET PO PRN ×2 (00:21→08:40)
[2021-05-31] MEDS: HYDRALAZINE 20MG/ML VIAL IV PRN (06:26)
[2021-05-31] MEDS: AMLODIPINE 10MG TABLET PO SCH (08:37)
[2021-05-31] MEDS: ASPIRIN 325MG EC TABLET PO SCH (08:37)
[2021-05-31] MEDS: SEVELAMER CARBONATE 800 MG TABLET PO SCH ×3 (08:38→17:15)
[2021-05-31] MEDS: ONDANSETRON HCL 4MG/2ML INJ IV PRN (17:56)
[2021-05-31 19:36] LABS: HEMATOCRIT 30.4 % (36.0-48.0)
[2021-05-31 19:53] LABS: INR 1.1; PROTHROMBIN TIME 11.8 sec (9.6-11.0)
[2021-05-31] MEDS: ATORVASTATIN CALCIUM 20MG TABLET PO SCH (20:58)
[2021-06-01] VITALS (12 sets, daily range): BP systolic 120–161; BP diastolic 54–73
[2021-06-01] MEDS: SEVELAMER CARBONATE 800 MG TABLET PO SCH ×3 (08:01→16:42)
[2021-06-01] MEDS: ASPIRIN 325MG EC TABLET PO SCH (08:01)
[2021-06-01] MEDS: AMLODIPINE 10MG TABLET PO SCH (08:01)
[2021-06-01 10:35] LABS: BASOPHILS % 0.5 % (0.0-2.0); EOSINOPHILS % 2.1 % (0.0-5.0); HEMATOCRIT. 30.6 % (36.0-48.0); HEMOGLOBIN. 9.9 g/dL (12.0-16.0); LYMPHOCYTES % 13.7 % (20.0-50.0); MEAN CORPUSCULAR HEMOGLOBIN 25.3 pg (28.0-32.0); MEAN CORPUSCULAR VOLUME 78.2 fL (81.0-99.0); MEAN PLATELET VOLUME 8.2 fl (7.4-10.4); NEUTROPHILS % 74.7 % (40.0-76.0); PLATELET 210 x1000/uL (130-400); RED BLOOD CELL COUNT 3.92 mill/uL (4.2-5.4); RED CELL DISTRIBUTION WIDTH 17.9 % (11.6-14.6)
[2021-06-01] MEDS: HYDROCODONE/APAP 7.5/325MG 1 TAB TABLET PO PRN (10:45)
[2021-06-01] MEDS ORDERED: HYDROCODONE/APAP 7.5/325MG 1 TAB TABLET PO PRN (14:45)
[2021-06-01] MEDS: ATORVASTATIN CALCIUM 20MG TABLET PO SCH (21:36)
[2021-06-02] VITALS (54 sets, daily range): BP systolic 60–290; BP diastolic 44–278
[2021-06-02 00:49] LABS: HEPATITIS B SURFACE ANTIGEN NEGATIVE
[2021-06-02] MEDS ORDERED: LIDOCAINE HCL 1% 20ML VIAL (Pyxis) INJ ONE (06:25)
[2021-06-02] MEDS ORDERED: THROMBIN (BOVINE) 5000 UNITS/VIAL TOP ONE ×2 (06:25→06:26)
[2021-06-02] MEDS ORDERED: BACITRACIN 15GM TUBE TOP ONE (06:25)
[2021-06-02] MEDS ORDERED: BUPIVACAINE HCL/PF 0.5% (5MG/ML) 10ML ONE (06:26)
[2021-06-02] MEDS ORDERED: POLYMYXIN B SULFATE 500000 UNITS/VIAL ONE (06:26)
[2021-06-02] MEDS ORDERED: SODIUM CHLORIDE 0.9% 1,000 ML ONE (06:27)
[2021-06-02] MEDS ORDERED: SODIUM CHLORIDE 0.9% INJ 10ML FLUSH IVF ONE (06:27)
[2021-06-02] MEDS ORDERED: HEPARIN SODIUM 1,000 UNIT/1ML VIAL IV ONE (06:45)
[2021-06-02] MEDS ORDERED: MORPHINE SULFATE 2 MG/ML CPJ (NOT FOR IM USE) IV PRN (07:00)
[2021-06-02] MEDS ORDERED: PROPOFOL 200MG/20ML VIAL IV ONE (07:24)
[2021-06-02] MEDS ORDERED: HEPARIN 1000 UNITS/ML 10ML ONE (07:28)
[2021-06-02] MEDS ORDERED: MIDAZOLAM HCL 2 MG/2 ML VIAL ONE (07:38)
[2021-06-02] MEDS ORDERED: FENTANYL CITRATE/PF 50MCG/ML 2ML VIAL ONE (08:57)
[2021-06-02] MEDS: SEVELAMER CARBONATE 800 MG TABLET PO SCH ×3 (09:00→17:00)
[2021-06-02] MEDS: ASPIRIN 325MG EC TABLET PO SCH (09:00)
[2021-06-02] MEDS: AMLODIPINE 10MG TABLET PO SCH (09:00)
[2021-06-02] MEDS ORDERED: NEOSTIGMINE METHYLSULFATE 1MG/ML 10 ML VIAL ONE (09:05)
[2021-06-02] MEDS ORDERED: GLYCOPYRROLATE 0.2 MG/ML 2ML VIAL ONE (09:07)
[2021-06-02] MEDS ORDERED: FENTANYL CITRATE/PF 2,500 MCG in SODIUM CHLORIDE 0.9% 200 ML IV PRN (11:00)
[2021-06-02] MEDS ORDERED: PROPOFOL 10MG/ML 100ML 100 ML IV PRN (11:00)
[2021-06-02] MEDS: NICARDIPINE 40MG/200ML PREMIX 200 ML IV PRN ×2 (11:00→19:43)
[2021-06-02 11:09] LABS: BG BASE EXCESS -6.7 mmol/L (-2.0-2.0); BG CARBOXYHEMOGLOBIN 0.3 % (0.5-1.5); BG DEOXYHEMOGLOBIN 0.9 % (0.0-5.0); BG FRACTION INSPIRED OXYGEN 100; BG HCO3 ACT 20.3 mmol/L (22.0-26.0); BG METHEMOGLOBIN 0.4 % (0.0-1.5); BG OXYGEN SATURATION 99.1 % (92.0-98.5); BG OXYHEMOGLOBIN 98.4 % (94.0-97.0); BG PCO2 46.9 mmHg (35.0-45.0); BG PH 7.254 (7.350-7.450); BG PO2 277.5 mmHg (75.0-100.0); BG TOTAL HEMOGLOBIN 10.9 g/dL (12.0-18.0); BG VENT MODE VENT - AC
[2021-06-02] MEDS ORDERED: IPRATROPIUM/ALBUTEROL 0.5-3(2.5)MG/3ML NEB HHN PRN (11:30)
[2021-06-02] MEDS: IPRATROPIUM/ALBUTEROL 0.5-3(2.5)MG/3ML NEB HHN SCH ×3 (11:39→21:14)
[2021-06-02] MEDS: METHYLPREDNISOLONE SOD SUCC 125 MG/2 ML VIAL IV SCH ×2 (12:52→18:17)
[2021-06-02] MEDS: MIDAZOLAM HCL 100 MG in SODIUM CHLORIDE 0.9% 80 ML IV PRN (13:04)
[2021-06-02] MEDS ORDERED: VANCOMYCIN 500MG PREMIX 100 ML IV NR (18:00)
[2021-06-02] MEDS: ATORVASTATIN CALCIUM 20MG TABLET PO SCH (20:42)
[2021-06-02] MEDS: EPOETIN ALFA-EPBX 10,000 UNIT/ML VIAL SUBCUT SCH (21:28)
[2021-06-03] VITALS (84 sets, daily range): BP systolic 108–175; BP diastolic 47–104
[2021-06-03] MEDS: METHYLPREDNISOLONE SOD SUCC 125 MG/2 ML VIAL IV SCH ×4 (00:23→18:02)
[2021-06-03] MEDS: IPRATROPIUM/ALBUTEROL 0.5-3(2.5)MG/3ML NEB HHN SCH ×6 (00:50→20:13)
[2021-06-03] MEDS: HYDRALAZINE 20MG/ML VIAL IV PRN (05:20)
[2021-06-03] MEDS: ASPIRIN 325MG EC TABLET PO SCH (09:00)
[2021-06-03] MEDS: AMLODIPINE 10MG TABLET PO SCH (09:00)
[2021-06-03] MEDS: SEVELAMER CARBONATE 800 MG TABLET PO SCH ×3 (09:00→17:00)
[2021-06-03] MEDS: PANTOPRAZOLE SODIUM 40 MG/VIAL IV SCH (09:26)
[2021-06-03] MEDS: FENTANYL CITRATE/PF 2,500 MCG in SODIUM CHLORIDE 0.9% 200 ML IV PRN (09:28)
[2021-06-03 09:59] LABS: BG BASE EXCESS -2.9 mmol/L (-2.0-2.0); BG CARBOXYHEMOGLOBIN 0.1 % (0.5-1.5); BG DEOXYHEMOGLOBIN 1.9 % (0.0-5.0); BG FRACTION INSPIRED OXYGEN 40; BG HCO3 ACT 19.9 mmol/L (22.0-26.0); BG METHEMOGLOBIN 0.7 % (0.0-1.5); BG OXYGEN SATURATION 98.1 % (92.0-98.5); BG OXYHEMOGLOBIN 97.3 % (94.0-97.0); BG PH 7.469 (7.350-7.450); BG PO2 141.5 mmHg (75.0-100.0); BG SAMPLE SITE LEFT RADIAL; BG TOTAL HEMOGLOBIN 10.4 g/dL (12.0-18.0); BG VENT MODE VENT - AC
[2021-06-03] MEDS: MIDAZOLAM HCL 100 MG in SODIUM CHLORIDE 0.9% 80 ML IV PRN (16:52)
[2021-06-03] MEDS: ATORVASTATIN CALCIUM 20MG TABLET PO SCH (21:00)
[2021-06-04] VITALS (67 sets, daily range): BP systolic 122–200; BP diastolic 51–109
[2021-06-04] MEDS: IPRATROPIUM/ALBUTEROL 0.5-3(2.5)MG/3ML NEB HHN SCH ×7 (00:07→20:04)
[2021-06-04] MEDS: METHYLPREDNISOLONE SOD SUCC 125 MG/2 ML VIAL IV SCH ×4 (00:10→18:26)
[2021-06-04] MEDS: FENTANYL CITRATE/PF 2,500 MCG in SODIUM CHLORIDE 0.9% 200 ML IV PRN (06:56)
[2021-06-04] MEDS: ASPIRIN 325MG EC TABLET PO SCH (09:00)
[2021-06-04] MEDS: AMLODIPINE 10MG TABLET PO SCH (09:00)
[2021-06-04] MEDS: SEVELAMER CARBONATE 800 MG TABLET PO SCH ×3 (09:00→17:00)
[2021-06-04] MEDS: PANTOPRAZOLE SODIUM 40 MG/VIAL IV SCH (09:00)
[2021-06-04 09:08] LABS: BG BASE EXCESS -0.9 mmol/L (-2.0-2.0); BG CARBOXYHEMOGLOBIN 0.3 % (0.5-1.5); BG DEOXYHEMOGLOBIN 2.3 % (0.0-5.0); BG FRACTION INSPIRED OXYGEN 35; BG HCO3 ACT 23.5 mmol/L (22.0-26.0); BG METHEMOGLOBIN 0.2 % (0.0-1.5); BG OXYGEN SATURATION 97.7 % (92.0-98.5); BG OXYHEMOGLOBIN 97.2 % (94.0-97.0); BG PCO2 37.9 mmHg (35.0-45.0); BG PO2 105.9 mmHg (75.0-100.0); BG SAMPLE SITE RIGHT RADIAL; BG TOTAL HEMOGLOBIN 10.6 g/dL (12.0-18.0); BG VENT MODE VENT - AC
[2021-06-04] MEDS: NICARDIPINE 40MG/200ML PREMIX 200 ML IV PRN (10:17)
[2021-06-04] MEDS: EPOETIN ALFA-EPBX 10,000 UNIT/ML VIAL SUBCUT SCH (20:48)
[2021-06-04] MEDS: ATORVASTATIN CALCIUM 20MG TABLET PO SCH ×2 (20:48→21:00)
[2021-06-05] VITALS (76 sets, daily range): BP systolic 105–222; BP diastolic 47–112
[2021-06-05] MEDS: METHYLPREDNISOLONE SOD SUCC 125 MG/2 ML VIAL IV SCH ×4 (01:00→17:34)
[2021-06-05] MEDS: IPRATROPIUM/ALBUTEROL 0.5-3(2.5)MG/3ML NEB HHN SCH ×5 (01:58→20:29)
[2021-06-05] MEDS: MIDAZOLAM HCL 100 MG in SODIUM CHLORIDE 0.9% 80 ML IV PRN (05:36)
[2021-06-05] MEDS: FENTANYL CITRATE/PF 2,500 MCG in SODIUM CHLORIDE 0.9% 200 ML IV PRN (05:38)
[2021-06-05] MEDS: HYDRALAZINE 20MG/ML VIAL IV PRN (06:38)
[2021-06-05 06:44] LABS: HEMATOCRIT. 30.8 % (36.0-48.0); MEAN CORPUSCULAR HEMOGLOBIN 25.6 pg (28.0-32.0); MEAN CORPUSCULAR VOLUME 79.1 fL (81.0-99.0); MEAN PLATELET VOLUME 8.1 fl (7.4-10.4); PLATELET 326 x1000/uL (130-400); RED CELL DISTRIBUTION WIDTH 18.9 % (11.6-14.6)
[2021-06-05] MEDS ORDERED: NICARDIPINE 50 MG in SODIUM CHLORIDE 0.9% 230 ML IV PRN (06:45)
[2021-06-05] MEDS: ASPIRIN 325MG EC TABLET PO SCH (08:22)
[2021-06-05] MEDS: AMLODIPINE 10MG TABLET PO SCH (08:22)
[2021-06-05] MEDS: SEVELAMER CARBONATE 800 MG TABLET PO SCH ×3 (08:22→17:00)
[2021-06-05] MEDS: PANTOPRAZOLE SODIUM 40 MG/VIAL IV SCH (08:40)
[2021-06-05 11:17] LABS: BG BASE EXCESS -3.8 mmol/L (-2.0-2.0); BG CARBOXYHEMOGLOBIN 0.3 % (0.5-1.5); BG DEOXYHEMOGLOBIN 1.2 % (0.0-5.0); BG FRACTION INSPIRED OXYGEN 40; BG HCO3 ACT 21.3 mmol/L (22.0-26.0); BG METHEMOGLOBIN 0.3 % (0.0-1.5); BG OXYGEN SATURATION 98.8 % (92.0-98.5); BG OXYHEMOGLOBIN 98.2 % (94.0-97.0); BG PCO2 38.8 mmHg (35.0-45.0); BG PH 7.358 (7.350-7.450); BG PO2 157.6 mmHg (75.0-100.0); BG SAMPLE SITE RIGHT RADIAL; BG TOTAL HEMOGLOBIN 12.1 g/dL (12.0-18.0); BG TOTAL RESPIRATORY RATE 14 b/min; BG VENT MODE VENT - CPAP
[2021-06-05 11:38] LABS: PLATELET ESTIMATE NORMAL
[2021-06-05] MEDS ORDERED: LORAZEPAM 2MG/ML CPJ IV PRN (17:45)
[2021-06-05] MEDS: ATORVASTATIN CALCIUM 20MG TABLET PO SCH (21:00)
[2021-06-06] VITALS (42 sets, daily range): BP systolic 113–171; BP diastolic 45–89
[2021-06-06] MEDS: IPRATROPIUM/ALBUTEROL 0.5-3(2.5)MG/3ML NEB HHN SCH ×5 (00:09→20:35)
[2021-06-06] MEDS: METHYLPREDNISOLONE SOD SUCC 125 MG/2 ML VIAL IV SCH ×2 (00:24→05:53)
[2021-06-06] MEDS: DOCUSATE SODIUM 100MG CAPSULE PO PRN ×2 (08:01→18:25)
[2021-06-06] MEDS: SEVELAMER CARBONATE 800 MG TABLET PO SCH ×3 (08:01→18:00)
[2021-06-06] MEDS: ASPIRIN 325MG EC TABLET PO SCH (08:01)
[2021-06-06] MEDS: PANTOPRAZOLE SODIUM 40 MG/VIAL IV SCH (08:01)
[2021-06-06] MEDS: AMLODIPINE 10MG TABLET PO SCH (08:03)
[2021-06-06 12:24] LABS: HEMATOCRIT. 32.9 % (36.0-48.0); HEMOGLOBIN. 10.4 g/dL (12.0-16.0); MEAN CORPUSCULAR HEMOGLOBIN 24.8 pg (28.0-32.0); MEAN CORPUSCULAR VOLUME 78.9 fL (81.0-99.0); MEAN PLATELET VOLUME 7.8 fl (7.4-10.4); PLATELET 385 x1000/uL (130-400); RED BLOOD CELL COUNT 4.17 mill/uL (4.2-5.4); RED CELL DISTRIBUTION WIDTH 18.8 % (11.6-14.6)
[2021-06-06 14:07] LABS: NUCLEATED RED BLOOD CELLS 1 /100 WBC; PLATELET ESTIMATE NORMAL
[2021-06-06] MEDS: METHYLPREDNISOLONE SOD SUCC 40 MG/ML VIAL IV SCH ×2 (14:23→21:48)
[2021-06-06] MEDS ORDERED: VANCOMYCIN 500MG PREMIX 100 ML IV NR (18:00)
[2021-06-06] MEDS: CEFEPIME 1,000 MG in DEXTROSE 5% WATER 50 ML IV SCH (21:48)
[2021-06-06] MEDS: ATORVASTATIN CALCIUM 20MG TABLET PO SCH (21:48)
[2021-06-07] VITALS (35 sets, daily range): BP systolic 107–166; BP diastolic 52–85
[2021-06-07] MEDS: IPRATROPIUM/ALBUTEROL 0.5-3(2.5)MG/3ML NEB HHN SCH ×2 (02:25→08:44)
[2021-06-07] MEDS: HYDRALAZINE 20MG/ML VIAL IV PRN (02:54)
[2021-06-07 04:38] LABS: HEPATITIS B SURFACE ANTIGEN NEGATIVE
[2021-06-07] MEDS: METHYLPREDNISOLONE SOD SUCC 40 MG/ML VIAL IV SCH ×2 (05:43→20:31)
[2021-06-07] MEDS: SEVELAMER CARBONATE 800 MG TABLET PO SCH ×3 (08:14→17:36)
[2021-06-07] MEDS: ASPIRIN 325MG EC TABLET PO SCH (08:14)
[2021-06-07] MEDS: AMLODIPINE 10MG TABLET PO SCH (08:15)
[2021-06-07] MEDS: PANTOPRAZOLE SODIUM 40 MG/VIAL IV SCH (08:15)
[2021-06-07] MEDS: DOCUSATE SODIUM 100MG CAPSULE PO PRN ×2 (08:16→20:31)
[2021-06-07] MEDS: LACTULOSE 20G/30ML UDC PO PRN (12:44)
[2021-06-07] MEDS ORDERED: GUAIFENESIN 200MG/10ML SUGAR FREE UDC PO PRN (16:00)
[2021-06-07] MEDS: CEFEPIME 1,000 MG in DEXTROSE 5% WATER 50 ML IV SCH (20:31)
[2021-06-07] MEDS: ATORVASTATIN CALCIUM 20MG TABLET PO SCH (20:31)
[2021-06-08] VITALS (54 sets, daily range): BP systolic 128–175; BP diastolic 55–82
[2021-06-08 05:44] LABS: MEAN CORPUSCULAR HEMOGLOBIN 25.5 pg (28.0-32.0); MEAN CORPUSCULAR VOLUME 78.9 fL (81.0-99.0); MEAN PLATELET VOLUME 8.4 fl (7.4-10.4); PLATELET 342 x1000/uL (130-400); RED BLOOD CELL COUNT 3.93 mill/uL (4.2-5.4); RED CELL DISTRIBUTION WIDTH 18.7 % (11.6-14.6)
[2021-06-08] MEDS: METHYLPREDNISOLONE SOD SUCC 40 MG/ML VIAL IV SCH (08:35)
[2021-06-08] MEDS: ASPIRIN 325MG EC TABLET PO SCH (08:36)
[2021-06-08] MEDS: AMLODIPINE 10MG TABLET PO SCH (08:36)
[2021-06-08] MEDS: SEVELAMER CARBONATE 800 MG TABLET PO SCH ×3 (08:36→18:09)
[2021-06-08] MEDS: PANTOPRAZOLE SODIUM 40 MG/VIAL IV SCH (08:36)
[2021-06-08 12:18] LABS: NUCLEATED RED BLOOD CELLS 3 /100 WBC; PLATELET ESTIMATE NORMAL
[2021-06-08] MEDS ORDERED: CEFTRIAXONE 2 G in DEXTROSE 5% WATER 50 ML IV SCH (17:00)
[2021-06-08] MEDS: LACTULOSE 20G/30ML UDC PO PRN (18:09)
[2021-06-08] MEDS: HYDRALAZINE 20MG/ML VIAL IV PRN (19:06)
[2021-06-08] MEDS: ATORVASTATIN CALCIUM 20MG TABLET PO SCH (20:47)
[2021-06-09] VITALS: BP 152/66
[2021-06-09 04:00] VITALS: BP 150/62
[2021-06-09 08:00] VITALS: BP 144/61
[2021-06-09] MEDS ORDERED: METHYLPREDNISOLONE SOD SUCC 40 MG/ML VIAL IV SCH (09:00)
[2021-06-09] MEDS: ASPIRIN 325MG EC TABLET PO SCH (09:53)
[2021-06-09] MEDS: SEVELAMER CARBONATE 800 MG TABLET PO SCH ×3 (09:53→16:31)
[2021-06-09] MEDS: PANTOPRAZOLE SODIUM 40 MG/VIAL IV SCH (09:53)
[2021-06-09] MEDS: AMLODIPINE 10MG TABLET PO SCH (09:54)
[2021-06-09 12:00] VITALS: BP 141/65
[2021-06-09 16:00] VITALS: BP 143/50
[2021-06-09] MEDS: LEVOFLOXACIN 250MG TABLET PO SCH (16:31)
[2021-06-09 20:00] VITALS: BP 132/75
[2021-06-09] MEDS: ATORVASTATIN CALCIUM 20MG TABLET PO SCH (21:23)
[2021-06-10] VITALS: BP 128/80
[2021-06-10 04:00] VITALS: BP 103/58
[2021-06-10 06:29] LABS: HEMATOCRIT. 30.8 % (36.0-48.0); HEMOGLOBIN. 9.9 g/dL (12.0-16.0); MEAN CORPUSCULAR HEMOGLOBIN 25.3 pg (28.0-32.0); MEAN CORPUSCULAR VOLUME 78.9 fL (81.0-99.0); MEAN PLATELET VOLUME 8.7 fl (7.4-10.4); PLATELET 218 x1000/uL (130-400); RED CELL DISTRIBUTION WIDTH 18.7 % (11.6-14.6)
[2021-06-10] MEDS: ASPIRIN 325MG EC TABLET PO SCH (08:02)
[2021-06-10] MEDS: SEVELAMER CARBONATE 800 MG TABLET PO SCH ×3 (08:03→17:15)
[2021-06-10] MEDS: AMLODIPINE 10MG TABLET PO SCH (08:03)
[2021-06-10] MEDS ORDERED: HEPARIN SODIUM 1,000 UNIT/1ML VIAL IV NR ×2 (08:45→12:30)
[2021-06-10] MEDS ORDERED: PREDNISONE 20MG TABLET PO SCH (09:00)
[2021-06-10 12:00] VITALS: BP 134/53
[2021-06-10 15:59] VITALS: BP 148/58
[2021-06-10 20:00] VITALS: BP 174/93
[2021-06-10 20:07] LABS: PLATELET ESTIMATE NORMAL
[2021-06-10] MEDS: ATORVASTATIN CALCIUM 20MG TABLET PO SCH (20:46)
[2021-06-11] VITALS: BP 140/57
[2021-06-11 04:00] VITALS: BP 143/75
[2021-06-11 08:08] VITALS: BP 154/62
[2021-06-11] MEDS: ASPIRIN 325MG EC TABLET PO SCH (08:27)
[2021-06-11] MEDS: AMLODIPINE 10MG TABLET PO SCH (08:27)
[2021-06-11] MEDS: SEVELAMER CARBONATE 800 MG TABLET PO SCH ×3 (08:28→17:39)
[2021-06-11 12:22] VITALS: BP 151/60
[2021-06-11] MEDS: ACETAMINOPHEN 650MG/20.3ML UDC PO PRN (15:30)
[2021-06-11 16:00] VITALS: BP 113/50
[2021-06-11] MEDS: LEVOFLOXACIN 250MG TABLET PO SCH (16:07)
[2021-06-11] MEDS ORDERED: VANCOMYCIN 1,750 MG in DEXT 5% WATER 250 ML IV NR (16:30)
[2021-06-11 18:49] LABS: HEPATITIS B SURFACE ANTIGEN NEGATIVE
[2021-06-11 20:00] VITALS: BP 142/81
[2021-06-11] MEDS: ATORVASTATIN CALCIUM 20MG TABLET PO SCH (20:37)
[2021-06-12] VITALS: BP 139/53
[2021-06-12 07:29] LABS: BASOPHILS % 0.3 % (0.0-2.0); EOSINOPHILS % 2.2 % (0.0-5.0); HEMATOCRIT. 30.4 % (36.0-48.0); HEMOGLOBIN. 10.1 g/dL (12.0-16.0); LYMPHOCYTES % 7.6 % (20.0-50.0); MEAN CORPUSCULAR HEMOGLOBIN 25.7 pg (28.0-32.0); MEAN CORPUSCULAR VOLUME 77.7 fL (81.0-99.0); MEAN PLATELET VOLUME 9.4 fl (7.4-10.4); MONOCYTES % 12.1 % (2.0-8.0); NEUTROPHILS % 77.8 % (40.0-76.0); PLATELET 146 x1000/uL (130-400); RED BLOOD CELL COUNT 3.92 mill/uL (4.2-5.4); RED CELL DISTRIBUTION WIDTH 18.7 % (11.6-14.6)
[2021-06-12 08:00] VITALS: BP 156/70
[2021-06-12] MEDS: AMLODIPINE 10MG TABLET PO SCH (09:00)
[2021-06-12] MEDS: SEVELAMER CARBONATE 800 MG TABLET PO SCH ×3 (09:00→17:07)
[2021-06-12 12:00] VITALS: BP 105/60
[2021-06-12] MEDS: ASPIRIN 325MG EC TABLET PO SCH (12:48)
[2021-06-12] MEDS: ACETAMINOPHEN 650MG/20.3ML UDC PO PRN (12:48)
[2021-06-12 15:29] VITALS: BP 113/55
[2021-06-12 20:00] VITALS: BP 148/71
[2021-06-12] MEDS: ATORVASTATIN CALCIUM 20MG TABLET PO SCH (20:36)
[2021-06-13] VITALS: BP 150/60
[2021-06-13 04:00] VITALS: BP 166/74
[2021-06-13 08:00] VITALS: BP 165/65
[2021-06-13 08:47] LABS: HEMATOCRIT. 31.4 % (36.0-48.0); HEMOGLOBIN. 10.4 g/dL (12.0-16.0); MEAN CORPUSCULAR VOLUME 78.4 fL (81.0-99.0)
[2021-06-13] MEDS: SEVELAMER CARBONATE 800 MG TABLET PO SCH ×3 (09:21→17:26)
[2021-06-13] MEDS: ASPIRIN 325MG EC TABLET PO SCH (09:22)
[2021-06-13] MEDS: AMLODIPINE 10MG TABLET PO SCH (09:22)
[2021-06-13 09:42] LABS: PLATELET ESTIMATE NORMAL
[2021-06-13 09:43] LABS: MEAN PLATELET VOLUME 9.8 fl (7.4-10.4)
[2021-06-13 09:44] LABS: PLATELET 138 x1000/uL (130-400)
[2021-06-13 12:00] VITALS: BP 143/59
[2021-06-13 16:00] VITALS: BP 132/68
[2021-06-13] MEDS: CEFEPIME 1,000 MG in DEXTROSE 5% WATER 50 ML IV SCH (17:26)
[2021-06-13 20:00] VITALS: BP 186/73
[2021-06-13] MEDS: ATORVASTATIN CALCIUM 20MG TABLET PO SCH (21:14)
[2021-06-14] VITALS: BP 102/72
[2021-06-14 04:00] VITALS: BP 156/69
[2021-06-14 08:00] VITALS: BP 162/72
[2021-06-14] MEDS: AMLODIPINE 10MG TABLET PO SCH (09:12)
[2021-06-14] MEDS: ASPIRIN 325MG EC TABLET PO SCH (09:12)
[2021-06-14] MEDS: SEVELAMER CARBONATE 800 MG TABLET PO SCH ×3 (09:12→17:00)
[2021-06-14 12:00] VITALS: BP 150/61
[2021-06-14 16:00] VITALS: BP 145/75
[2021-06-14] MEDS: CEFEPIME 1,000 MG in DEXTROSE 5% WATER 50 ML IV SCH (16:00)
[2021-06-14 20:00] VITALS: BP 174/82
[2021-06-14] MEDS ORDERED: CLONIDINE 0.1MG TABLET PO PRN (20:30)
[2021-06-14] MEDS: ACETAMINOPHEN 650MG/20.3ML UDC PO PRN (20:35)
[2021-06-14] MEDS: ATORVASTATIN CALCIUM 20MG TABLET PO SCH (20:35)
== END 2021-06-14 21:40 | disposition home health service (06) | DRG 673 ==
LOC: ER 19:32 → 6EST 05-27 04:05 → EDBEDREQ 05-27 04:08 → EDBEDREQTM 05-27 04:08 → EDBEDREQSVC 05-27 04:08 → EDBEDREQDT 05-27 04:08 → 5EST 05-29 06:37 → MICUSO 05-29 11:51 → 5EST 05-30 18:58 → CVICU 06-02 10:37 → 8WST 06-08 18:33
PROVIDERS: ADMIT Internal Medicine; ATTEND Internal Medicine
PROC: 5A1D70Z Performance of Urinary Filtration, Intermittent, Less than 6 Hours Per Day (ICD-10-PCS; 2021-05-28)
PROC: 05PY0JZ Removal of Synthetic Substitute from Upper Vein, Open Approach (ICD-10-PCS; 2021-05-29)
PROC: 03PY0JZ Removal of Synthetic Substitute from Upper Artery, Open Approach (ICD-10-PCS; 2021-05-29)
PROC: 0JH63XZ Insertion of Tunneled Vascular Access Device into Chest Subcutaneous Tissue and Fascia, Percutaneous Approach (ICD-10-PCS; 2021-05-30)
PROC: 02HV33Z Insertion of Infusion Device into Superior Vena Cava, Percutaneous Approach (ICD-10-PCS; 2021-05-30)
PROC: B5181ZA Fluoroscopy of Superior Vena Cava using Low Osmolar Contrast, Guidance (ICD-10-PCS; 2021-05-30)
PROC: B548ZZA Ultrasonography of Superior Vena Cava, Guidance (ICD-10-PCS; 2021-05-30)
PROC: 30233N1 Transfusion of Nonautologous Red Blood Cells into Peripheral Vein, Percutaneous Approach (ICD-10-PCS; 2021-05-30)
PROC: 5A1D70Z Performance of Urinary Filtration, Intermittent, Less than 6 Hours Per Day (ICD-10-PCS; 2021-05-30)
PROC: 03CK0ZZ Extirpation of Matter from Right Internal Carotid Artery, Open Approach (ICD-10-PCS; principal; 2021-06-02)
PROC: 5A1D70Z Performance of Urinary Filtration, Intermittent, Less than 6 Hours Per Day (ICD-10-PCS; 2021-06-02)
PROC: 0BH17EZ Insertion of Endotracheal Airway into Trachea, Via Natural or Artificial Opening (ICD-10-PCS; 2021-06-02)
PROC: 5A1945Z Respiratory Ventilation, 24-96 Consecutive Hours (ICD-10-PCS; 2021-06-02)
PROC: 4A10X4Z Monitoring of Central Nervous Electrical Activity, External Approach (ICD-10-PCS; 2021-06-03)
PROC: 5A1D70Z Performance of Urinary Filtration, Intermittent, Less than 6 Hours Per Day (ICD-10-PCS; 2021-06-03)
PROC: 5A1D70Z Performance of Urinary Filtration, Intermittent, Less than 6 Hours Per Day (ICD-10-PCS; 2021-06-05)
PROC: 5A1D70Z Performance of Urinary Filtration, Intermittent, Less than 6 Hours Per Day (ICD-10-PCS; 2021-06-07)
PROC: 5A1D70Z Performance of Urinary Filtration, Intermittent, Less than 6 Hours Per Day (ICD-10-PCS; 2021-06-09)
PROC: 5A1D70Z Performance of Urinary Filtration, Intermittent, Less than 6 Hours Per Day (ICD-10-PCS; 2021-06-10)
PROC: 5A1D70Z Performance of Urinary Filtration, Intermittent, Less than 6 Hours Per Day (ICD-10-PCS; 2021-06-12)
PROC: 5A1D70Z Performance of Urinary Filtration, Intermittent, Less than 6 Hours Per Day (ICD-10-PCS; 2021-06-14)
DX: T82.41XA Breakdown (mechanical) of vascular dialysis catheter, initial encounter (principal); N18.6 End stage renal disease; J96.00 Acute respiratory failure, unspecified whether with hypoxia or hypercapnia; A41.9 Sepsis, unspecified organism; I12.0 Hypertensive chronic kidney disease with stage 5 chronic kidney disease or end stage renal disease; I69.354 Hemiplegia and hemiparesis following cerebral infarction affecting left non-dominant side; N25.81 Secondary hyperparathyroidism of renal origin; G93.40 Encephalopathy, unspecified; D62 Acute posthemorrhagic anemia; T82.838A Hemorrhage due to vascular prosthetic devices, implants and grafts, initial encounter; T82.7XXA Infection and inflammatory reaction due to other cardiac and vascular devices, implants and grafts, initial encounter; E78.5 Hyperlipidemia, unspecified; F41.9 Anxiety disorder, unspecified; J44.9 Chronic obstructive pulmonary disease, unspecified; Z96.649 Presence of unspecified artificial hip joint; I65.21 Occlusion and stenosis of right carotid artery; T78.3XXA Angioneurotic edema, initial encounter; E87.5 Hyperkalemia; L08.9 Local infection of the skin and subcutaneous tissue, unspecified; T38.0X5A Adverse effect of glucocorticoids and synthetic analogues, initial encounter; Y71.2 Prosthetic and other implants, materials and accessory cardiovascular devices associated with adverse incidents; D63.8 Anemia in other chronic diseases classified elsewhere; R53.81 Other malaise; Y83.2 Surgical operation with anastomosis, bypass or graft as the cause of abnormal reaction of the patient, or of later complication, without mention of misadventure at the time of the procedure; I73.9 Peripheral vascular disease, unspecified; Z20.822 Contact with and (suspected) exposure to COVID-19; Y84.1 Kidney dialysis as the cause of abnormal reaction of the patient, or of later complication, without mention of misadventure at the time of the procedure; Z99.81 Dependence on supplemental oxygen; Z86.718 Personal history of other venous thrombosis and embolism; Z99.2 Dependence on renal dialysis; Z86.16 Personal history of COVID-19; Z79.899 Other long term (current) drug therapy; Z78.1 Physical restraint status
CPT/HCPCS: 36415; 36558; 36600; 70496; 70498; 70551; 71045; 73200; 76937; 77001; 80048; 80053; 80061; 80202; 82375; 82550; 82805; 83605; 84145; 84443; 84478; 85014; 85018; 85025; 85027; 85049; 85384; 85651; 86140; 86705; 86709; 86803; 86850; 86900; 86920; 87070; 87077; 87186; 87340; 87426; 88300; 88304; 88311; 92610; 93005; 93970; 93971; 95816; 99285; A6261; C1750; C1751; C1769; C1887; C9113; J0360; J0690; J0692; J0696; J0885; J1100; J1170; J1642; J1644; J2250; J2270; J2310; J2405; J2543; J2704; J2710; J2795; J2920; J2930; J3010; J3370; J3490; J7030; J7040; J7042; J7050; J7060; P9016; P9041; Q9967

== ENCOUNTER 2021-06-15 18:31 | Emergency (ER) | payer MEDICARE, MEDICAID ==
[~2021-06-15] VITALS: Ht 165.1 cm; Wt 73.0 kg
[~2021-06-15 18:31] MED LIST changes: +AMLO-337 PO; +BENA40TA9 PO; +FURO20TA4 PO; +LORA10TA7 PO; +SEVE800T8 PO
[2021-06-15 18:34] VITALS: BP 133/59
== END 2021-06-15 21:07 | disposition home or self-care (01) ==
LOC: ER 18:31
DX: I10 Essential (primary) hypertension (principal); Z98.890 Other specified postprocedural states
CPT/HCPCS: 99283

== ENCOUNTER 2021-06-19 17:51 | Inpatient (IN) | payer MEDICARE, MEDICAID ==
[~2021-06-19] VITALS: Ht 162.6 cm; Wt 77.6 kg
[2021-06-19] MEDS ORDERED: IOHEXOL-350 100 ML BOTTLE ONE ×2 (18:21→23:25)
[2021-06-19 18:52] LABS: HEMATOCRIT. 33.6 % (36.0-48.0); MEAN CORPUSCULAR HEMOGLOBIN 25.3 pg (28.0-32.0); MEAN CORPUSCULAR VOLUME 77.5 fL (81.0-99.0); MEAN PLATELET VOLUME 8.3 fl (7.4-10.4); PLATELET 175 x1000/uL (130-400); RED BLOOD CELL COUNT 4.33 mill/uL (4.2-5.4); RED CELL DISTRIBUTION WIDTH 18.2 % (11.6-14.6)
[2021-06-19 19:00] LABS: CHLORIDE 100 mEq/L (98-107)
[2021-06-19 19:04] LABS: ETHANOL BLOOD < 10 mg/dL
[2021-06-19] MEDS ORDERED: ALTEPLASE IV ONE (19:15)
[2021-06-19] MEDS ORDERED: CONTAINER EMPTY IV ONE (19:15)
[2021-06-19] MEDS ORDERED: ALTEPLASE 100MG/VIAL IV ONE (19:15)
[2021-06-19 19:50] LABS: PLATELET ESTIMATE NORMAL
[2021-06-19] MEDS ORDERED: *NO ASPIRIN X 24 HOURS XX SCH (20:00)
[2021-06-19 23:28] VITALS: BP 144/62
[2021-06-19 23:30] VITALS: BP 144/62
[2021-06-19 23:43] VITALS: BP 140/65
[2021-06-20] VITALS (36 sets, daily range): BP systolic 58–165; BP diastolic 28–90
[2021-06-20] MEDS ORDERED: DEXTROSE 50% WATER 50ML SYRINGE IV PRN (00:15)
[2021-06-20] MEDS: INSULIN LISPRO 100 UNITS/ML SUBCUT SCH ×4 (00:15→17:32)
[2021-06-20] MEDS: BLOOD SUGAR DIAGNOSTIC STRIP TEST SCH ×4 (00:15→17:32)
[2021-06-20] MEDS: DEXT 5%/0.45% NACL 1000ML 1,000 ML IV SCH (01:33)
[2021-06-20] MEDS ORDERED: VANCOMYCIN 1500MG in DEXTROSE 5% WATER 250ML IV NR (02:00)
[2021-06-20] MEDS ORDERED: GENTAMICIN 120MG PREMIX 100 ML IV NR (04:00)
[2021-06-20] MEDS ORDERED: PNEUMOCOCCAL 23-VAL P-SAC VAC 0.5 ML IM ONE (04:45)
[2021-06-20 05:18] LABS: HEMATOCRIT. 24.8 % (36.0-48.0); HEMOGLOBIN. 8.1 g/dL (12.0-16.0); MEAN CORPUSCULAR HEMOGLOBIN 25.4 pg (28.0-32.0); MEAN CORPUSCULAR VOLUME 77.2 fL (81.0-99.0); PLATELET 164 x1000/uL (130-400); RED BLOOD CELL COUNT 3.21 mill/uL (4.2-5.4)
[2021-06-20 05:33] LABS: GENTAMICIN RANDOM 2.1 ug/mL
[2021-06-20] MEDS: FAMOTIDINE 20MG/2ML VIAL IV SCH (09:30)
[2021-06-20 12:53] LABS: PLATELET ESTIMATE NORMAL
[2021-06-20 13:00] LABS: HEPATITIS B SURFACE ANTIGEN NEGATIVE
[2021-06-21] VITALS (7 sets, daily range): BP systolic 145–174; BP diastolic 50–86
[2021-06-21] MEDS: INSULIN LISPRO 100 UNITS/ML SUBCUT SCH ×3 (00:15→12:15)
[2021-06-21] MEDS: BLOOD SUGAR DIAGNOSTIC STRIP TEST SCH ×3 (00:37→12:15)
[2021-06-21] MEDS: DEXT 5%/0.45% NACL 1000ML 1,000 ML IV SCH ×2 (05:34→17:40)
[2021-06-21 07:02] LABS: EOSINOPHILS % 2.7 % (0.0-5.0); HEMATOCRIT. 25.4 % (36.0-48.0); HEMOGLOBIN. 8.1 g/dL (12.0-16.0); LYMPHOCYTES % 15.9 % (20.0-50.0); MEAN CORPUSCULAR HEMOGLOBIN 25.3 pg (28.0-32.0); MEAN CORPUSCULAR VOLUME 78.7 fL (81.0-99.0); MEAN PLATELET VOLUME 8.2 fl (7.4-10.4); MONOCYTES % 10.9 % (2.0-8.0); NEUTROPHILS % 69.5 % (40.0-76.0); PLATELET 168 x1000/uL (130-400); RED BLOOD CELL COUNT 3.23 mill/uL (4.2-5.4)
[2021-06-21 08:14] LABS: GENTAMICIN RANDOM 3.5 ug/mL
[2021-06-21] MEDS: FAMOTIDINE 20MG/2ML VIAL IV SCH (10:15)
[2021-06-22] VITALS: BP 122/77
[2021-06-22] MEDS: INSULIN LISPRO 100 UNITS/ML SUBCUT SCH ×2 (00:15→18:15)
[2021-06-22] MEDS: BLOOD SUGAR DIAGNOSTIC STRIP TEST SCH ×3 (00:15→18:28)
[2021-06-22 04:00] VITALS: BP 185/66
[2021-06-22] MEDS: CLONIDINE 0.1MG TABLET PO PRN (05:30)
[2021-06-22 08:00] VITALS: BP 137/59
[2021-06-22] MEDS: AMLODIPINE 10MG TABLET PO SCH (09:03)
[2021-06-22] MEDS: FAMOTIDINE 20MG/2ML VIAL IV SCH (09:04)
[2021-06-22 12:00] VITALS: BP 149/54
[2021-06-22] MEDS: DEXT 5%/0.45% NACL 1000ML 1,000 ML IV SCH (12:28)
[2021-06-22 16:00] VITALS: BP 152/59
[2021-06-22 20:00] VITALS: BP 182/62
[2021-06-23] VITALS: BP 182/69
[2021-06-23] MEDS: BLOOD SUGAR DIAGNOSTIC STRIP TEST SCH ×5 (00:06→23:26)
[2021-06-23] MEDS: INSULIN LISPRO 100 UNITS/ML SUBCUT SCH ×5 (00:06→23:26)
[2021-06-23] MEDS: CLONIDINE 0.1MG TABLET PO PRN ×2 (00:47→13:14)
[2021-06-23 04:00] VITALS: BP 136/55
[2021-06-23 08:00] VITALS: BP 169/81
[2021-06-23] MEDS: DEXT 5%/0.45% NACL 1000ML 1,000 ML IV SCH (08:15)
[2021-06-23] MEDS: ASPIRIN 81MG EC TABLET PO SCH (09:49)
[2021-06-23] MEDS: AMLODIPINE 10MG TABLET PO SCH (09:49)
[2021-06-23] MEDS: FAMOTIDINE 20MG/2ML VIAL IV SCH (09:49)
[2021-06-23 12:00] VITALS: BP 177/49
[2021-06-23] MEDS ORDERED: GENTAMICIN 80MG PREMIX 100 ML IV SCH (13:00)
[2021-06-23] MEDS ORDERED: VANCOMYCIN 500 MG PREMIX 100 ML IV SCH (15:00)
[2021-06-23 16:00] VITALS: BP 118/74
[2021-06-23 20:00] VITALS: BP 160/64
[2021-06-24] VITALS: BP 175/69
[2021-06-24] MEDS: CLONIDINE 0.1MG TABLET PO PRN ×3 (00:49→21:12)
[2021-06-24 04:00] VITALS: BP 160/63
[2021-06-24] MEDS: DEXT 5%/0.45% NACL 1000ML 1,000 ML IV SCH (05:30)
[2021-06-24] MEDS: INSULIN LISPRO 100 UNITS/ML SUBCUT SCH ×3 (06:02→17:44)
[2021-06-24] MEDS: BLOOD SUGAR DIAGNOSTIC STRIP TEST SCH ×2 (06:02→12:35)
[2021-06-24 08:00] VITALS: BP 151/80
[2021-06-24] MEDS: AMLODIPINE 10MG TABLET PO SCH (10:39)
[2021-06-24] MEDS: FAMOTIDINE 20MG/2ML VIAL IV SCH (10:39)
[2021-06-24] MEDS: ASPIRIN 81MG EC TABLET PO SCH (10:39)
[2021-06-24 12:00] VITALS: BP 147/59
[2021-06-24 16:00] VITALS: BP 170/53
[2021-06-24 17:21] LABS: HEPATITIS B SURFACE ANTIGEN NEGATIVE
[2021-06-24 20:00] VITALS: BP 159/73
[2021-06-25] VITALS: BP 150/60
[2021-06-25 04:00] VITALS: BP 149/72
[2021-06-25 08:00] VITALS: BP 186/63
[2021-06-25] MEDS: AMLODIPINE 10MG TABLET PO SCH (09:00)
[2021-06-25] MEDS: FAMOTIDINE 20MG/2ML VIAL IV SCH (09:23)
[2021-06-25] MEDS: ASPIRIN 81MG EC TABLET PO SCH (09:23)
[2021-06-25] MEDS: INSULIN LISPRO 100 UNITS/ML SUBCUT SCH ×2 (11:44→17:06)
[2021-06-25] MEDS: BLOOD SUGAR DIAGNOSTIC STRIP TEST SCH ×2 (11:44→17:06)
[2021-06-25 12:00] VITALS: BP 146/51
[2021-06-25 12:13] LABS: GENTAMICIN RANDOM 3.7 ug/mL
[2021-06-25 16:00] VITALS: BP 147/85
[2021-06-25 20:00] VITALS: BP 191/68
[2021-06-25] MEDS: CLONIDINE 0.1MG TABLET PO PRN (20:44)
[2021-06-26] VITALS: BP 141/72
[2021-06-26 04:00] VITALS: BP 143/59
[2021-06-26] MEDS: CLONIDINE 0.1MG TABLET PO PRN ×3 (04:46→20:19)
[2021-06-26] MEDS: BLOOD SUGAR DIAGNOSTIC STRIP TEST SCH ×4 (06:15→16:50)
[2021-06-26] MEDS: INSULIN LISPRO 100 UNITS/ML SUBCUT SCH ×4 (06:15→16:51)
[2021-06-26 08:00] VITALS: BP 155/99
[2021-06-26] MEDS: FAMOTIDINE 20MG/2ML VIAL IV SCH (09:00)
[2021-06-26] MEDS: ASPIRIN 81MG EC TABLET PO SCH (10:25)
[2021-06-26] MEDS: AMLODIPINE 10MG TABLET PO SCH (10:25)
[2021-06-26 12:00] VITALS: BP 180/68
[2021-06-26 16:00] VITALS: BP 177/74
[2021-06-26] MEDS: BENAZEPRIL 10MG TABLET PO SCH (17:44)
[2021-06-26] MEDS ORDERED: VANCOMYCIN 500 MG PREMIX 100 ML IV NR (18:00)
[2021-06-26 20:00] VITALS: BP 198/75
[2021-06-26] MEDS ORDERED: CLONIDINE 0.2MG TABLET PO PRN (20:45)
[2021-06-26] MEDS ORDERED: ACETAMINOPHEN 325MG TABLET PO PRN (20:45)
[2021-06-26] MEDS ORDERED: GENTAMICIN 80MG PREMIX 100 ML IV NR (21:00)
[2021-06-27] VITALS (10 sets, daily range): BP systolic 105–169; BP diastolic 54–71
[2021-06-27] MEDS: INSULIN LISPRO 100 UNITS/ML SUBCUT SCH ×4 (00:15→18:15)
[2021-06-27] MEDS: BLOOD SUGAR DIAGNOSTIC STRIP TEST SCH ×4 (00:50→18:54)
[2021-06-27] MEDS ORDERED: FAMOTIDINE 20MG TABLET PO SCH (09:00)
[2021-06-27] MEDS: ASPIRIN 81MG EC TABLET PO SCH (09:16)
[2021-06-27] MEDS ORDERED: GENTAMICIN 100MG PREMIX 50 ML IV SCH (10:00)
[2021-06-27] MEDS ORDERED: VANCOMYCIN 750 MG PREMIX 150 ML IV SCH (10:00)
[2021-06-27 12:37] LABS: EOSINOPHILS % 3.6 % (0.0-5.0); HEMATOCRIT. 30.5 % (36.0-48.0); HEMOGLOBIN. 9.8 g/dL (12.0-16.0); LYMPHOCYTES % 14.7 % (20.0-50.0); MEAN CORPUSCULAR HEMOGLOBIN 24.4 pg (28.0-32.0); MEAN CORPUSCULAR VOLUME 75.8 fL (81.0-99.0); MEAN PLATELET VOLUME 8.3 fl (7.4-10.4); MONOCYTES % 12.5 % (2.0-8.0); NEUTROPHILS % 68.2 % (40.0-76.0); PLATELET 307 x1000/uL (130-400); RED BLOOD CELL COUNT 4.03 mill/uL (4.2-5.4); RED CELL DISTRIBUTION WIDTH 19.1 % (11.6-14.6)
[2021-06-27] MEDS: AMLODIPINE 10MG TABLET PO SCH (12:46)
[2021-06-27] MEDS: BENAZEPRIL 10MG TABLET PO SCH (12:46)
[2021-06-27] MEDS ORDERED: CLONIDINE 0.2MG TABLET PO NR (21:00)
[2021-06-27] MEDS ORDERED: EPOETIN ALFA-EPBX 10,000 UNIT/ML VIAL SUBCUT SCH (21:00)
[2021-06-28] VITALS: BP 160/66
[2021-06-28] MEDS: BLOOD SUGAR DIAGNOSTIC STRIP TEST SCH (00:15)
[2021-06-28] MEDS: INSULIN LISPRO 100 UNITS/ML SUBCUT SCH (00:15)
== END 2021-06-28 03:00 | DRG 61 ==
LOC: ER 17:51 → ENRESERV 22:36 → MICUNO 23:17 → 7EST 06-20 16:07
PROVIDERS: ADMIT Internal Medicine; ATTEND Internal Medicine
PROC: 3E03317 Introduction of Other Thrombolytic into Peripheral Vein, Percutaneous Approach (ICD-10-PCS; principal; 2021-06-19)
PROC: 5A1D70Z Performance of Urinary Filtration, Intermittent, Less than 6 Hours Per Day (ICD-10-PCS; 2021-06-20)
PROC: 5A1D70Z Performance of Urinary Filtration, Intermittent, Less than 6 Hours Per Day (ICD-10-PCS; 2021-06-23)
PROC: 5A1D70Z Performance of Urinary Filtration, Intermittent, Less than 6 Hours Per Day (ICD-10-PCS; 2021-06-25)
PROC: 5A1D70Z Performance of Urinary Filtration, Intermittent, Less than 6 Hours Per Day (ICD-10-PCS; 2021-06-27)
DX: I63.512 Cerebral infarction due to unspecified occlusion or stenosis of left middle cerebral artery (principal); N18.6 End stage renal disease; I12.0 Hypertensive chronic kidney disease with stage 5 chronic kidney disease or end stage renal disease; N25.81 Secondary hyperparathyroidism of renal origin; G81.91 Hemiplegia, unspecified affecting right dominant side; R47.01 Aphasia; E11.22 Type 2 diabetes mellitus with diabetic chronic kidney disease; D64.9 Anemia, unspecified; D72.829 Elevated white blood cell count, unspecified; E78.5 Hyperlipidemia, unspecified; Z20.822 Contact with and (suspected) exposure to COVID-19; Z96.641 Presence of right artificial hip joint; F41.9 Anxiety disorder, unspecified; J44.9 Chronic obstructive pulmonary disease, unspecified; Z82.49 Family history of ischemic heart disease and other diseases of the circulatory system; Z83.3 Family history of diabetes mellitus; Z86.16 Personal history of COVID-19; Z87.891 Personal history of nicotine dependence; Z99.2 Dependence on renal dialysis; Z79.899 Other long term (current) drug therapy
CPT/HCPCS: 36415; 70496; 70498; 70551; 71045; 80048; 80053; 80061; 80170; 80202; 80320; 82550; 82962; 83036; 84484; 85025; 86705; 86709; 86803; 87340; 87426; 92610; 93005; 97110; 97162; 97166; 97530; 99291; C1893; J0885; J1580; J2997; J3370; J3490; J7060; Q9967; G0480

== ENCOUNTER 2021-07-16 14:14 | Inpatient (IN) | payer MEDICARE, MEDICAID ==
[~2021-07-16] VITALS: Ht 160 cm; Wt 73.1 kg
[~2021-07-16 14:14] MED LIST changes: -FURO20TA4 PO
[2021-07-16 17:12] LABS: BASOPHILS % 2.1 % (0.0-2.0); EOSINOPHILS % 5.9 % (0.0-5.0); HEMATOCRIT. 28.2 % (36.0-48.0); HEMOGLOBIN. 9.2 g/dL (12.0-16.0); LYMPHOCYTES % 20.3 % (20.0-50.0); MEAN CORPUSCULAR HEMOGLOBIN 23.8 pg (28.0-32.0); MEAN PLATELET VOLUME 8.1 fl (7.4-10.4); MONOCYTES % 6.7 % (2.0-8.0); PLATELET 277 x1000/uL (130-400); RED BLOOD CELL COUNT 3.87 mill/uL (4.2-5.4); RED CELL DISTRIBUTION WIDTH 19.1 % (11.6-14.6)
[2021-07-16 17:20] LABS: CHLORIDE 98 mEq/L (98-107)
[2021-07-16] MEDS ORDERED: HYDRALAZINE 20MG/ML VIAL IV ONE (19:30)
[2021-07-16] MEDS ORDERED: ONDANSETRON HCL 4MG/2ML INJ IV PRN (23:00)
[2021-07-16] MEDS ORDERED: ZOLPIDEM TARTRATE 5MG TABLET PO PRN (23:00)
[2021-07-16] MEDS ORDERED: ENOXAPARIN 40MG/0.4ML SYR SUBCUT SCH (23:00)
[2021-07-16] MEDS ORDERED: GUAIFENESIN 200MG/10ML SUGAR FREE UDC PO PRN (23:00)
[2021-07-16] MEDS ORDERED: DIPHENHYDRAMINE 50MG/ML VIAL IV PRN (23:00)
[2021-07-16] MEDS ORDERED: ACETAMINOPHEN 325MG TABLET PO PRN (23:00)
[2021-07-16] MEDS ORDERED: MAGNESIUM/ALUMINUM HYDROXIDE/SIMETHICONE 30ML UDC PO PRN (23:00)
[2021-07-17] MEDS: CLONIDINE 0.2MG TABLET PO PRN (00:52)
[2021-07-17] MEDS: SODIUM CHLORIDE 0.9% INJ 3ML FLUSH IVF SCH ×3 (06:42→21:28)
[2021-07-17] MEDS: BENAZEPRIL 10MG TABLET PO SCH (10:47)
[2021-07-17] MEDS: ENOXAPARIN 30MG/0.3ML SYR SUBCUT SCH (10:47)
[2021-07-17] MEDS: AMLODIPINE 10MG TABLET PO SCH (10:47)
[2021-07-17 12:00] VITALS: BP 146/88
[2021-07-17 15:46] VITALS: BP 175/54
[2021-07-17 20:00] VITALS: BP 108/58
[2021-07-17] MEDS: EPOETIN ALFA-EPBX 10,000 UNIT/ML VIAL SUBCUT SCH (21:28)
[2021-07-17] MEDS: FAMOTIDINE 20MG TABLET PO SCH (21:28)
[2021-07-17 22:00] VITALS: BP 158/70
[2021-07-18 06:00] VITALS: BP 160/77
[2021-07-18] MEDS: SODIUM CHLORIDE 0.9% INJ 3ML FLUSH IVF SCH ×3 (06:27→21:48)
[2021-07-18 08:00] VITALS: BP 155/59
[2021-07-18] MEDS: BENAZEPRIL 10MG TABLET PO SCH (08:21)
[2021-07-18] MEDS: ENOXAPARIN 30MG/0.3ML SYR SUBCUT SCH (08:21)
[2021-07-18] MEDS: AMLODIPINE 10MG TABLET PO SCH (08:21)
[2021-07-18 12:00] VITALS: BP 143/68
[2021-07-18 16:00] VITALS: BP 167/70
[2021-07-18] MEDS ORDERED: DEXTROSE 50% WATER 50ML SYRINGE IV PRN (19:30)
[2021-07-18 20:00] VITALS: BP 102/58
[2021-07-18] MEDS ORDERED: FAMOTIDINE 20MG TABLET PO SCH (21:00)
[2021-07-18] MEDS: INSULIN LISPRO 100 UNITS/ML SUBCUT SCH (21:00)
[2021-07-18] MEDS: ATORVASTATIN CALCIUM 10MG TABLET PO SCH (21:46)
[2021-07-18] MEDS: FAMOTIDINE 20MG TABLET PO SCH (21:47)
[2021-07-18] MEDS: BLOOD SUGAR DIAGNOSTIC STRIP TEST SCH (21:48)
[2021-07-19] VITALS: BP 142/67
[2021-07-19 04:00] VITALS: BP 142/60
[2021-07-19] MEDS: BLOOD SUGAR DIAGNOSTIC STRIP TEST SCH (07:13)
[2021-07-19 08:00] VITALS: BP 162/67
[2021-07-19] MEDS: INSULIN LISPRO 100 UNITS/ML SUBCUT SCH (08:10)
[2021-07-19] MEDS: AMLODIPINE 10MG TABLET PO SCH (08:46)
[2021-07-19] MEDS: FOLIC ACID/VITAMIN B COMP W-C TABLET PO SCH (08:46)
[2021-07-19] MEDS: SEVELAMER CARBONATE 800 MG TABLET PO SCH ×3 (08:46→17:43)
[2021-07-19] MEDS: BENAZEPRIL 10MG TABLET PO SCH (08:46)
[2021-07-19] MEDS: LORATADINE 10MG TABLET PO SCH (08:47)
[2021-07-19] MEDS: ENOXAPARIN 30MG/0.3ML SYR SUBCUT SCH (08:48)
[2021-07-19 12:00] VITALS: BP 164/58
[2021-07-19 16:00] VITALS: BP 160/62
[2021-07-19] MEDS: SODIUM CHLORIDE 0.9% INJ 3ML FLUSH IVF SCH ×2 (16:21→21:51)
[2021-07-19] MEDS: CLONIDINE 0.2MG TABLET PO PRN (16:21)
[2021-07-19 20:00] VITALS: BP 112/55
[2021-07-19] MEDS: EPOETIN ALFA-EPBX 10,000 UNIT/ML VIAL SUBCUT SCH (21:51)
[2021-07-19] MEDS: ATORVASTATIN CALCIUM 10MG TABLET PO SCH (21:51)
[2021-07-20] VITALS: BP 118/60
[2021-07-20 04:00] VITALS: BP 124/52
[2021-07-20] MEDS: SODIUM CHLORIDE 0.9% INJ 3ML FLUSH IVF SCH ×3 (05:56→21:59)
[2021-07-20 08:00] VITALS: BP 138/58
[2021-07-20] MEDS: FOLIC ACID/VITAMIN B COMP W-C TABLET PO SCH (09:47)
[2021-07-20] MEDS: SEVELAMER CARBONATE 800 MG TABLET PO SCH ×3 (09:47→17:35)
[2021-07-20] MEDS: LORATADINE 10MG TABLET PO SCH (09:47)
[2021-07-20] MEDS: ENOXAPARIN 30MG/0.3ML SYR SUBCUT SCH (09:48)
[2021-07-20] MEDS: AMLODIPINE 10MG TABLET PO SCH (09:51)
[2021-07-20] MEDS: BENAZEPRIL 10MG TABLET PO SCH (09:51)
[2021-07-20 11:36] VITALS: BP 141/76
[2021-07-20 15:50] VITALS: BP 124/61
[2021-07-20 17:24] LABS: HEPATITIS B SURFACE ANTIGEN NEGATIVE
[2021-07-20 20:00] VITALS: BP 157/67
[2021-07-20] MEDS: FAMOTIDINE 20MG TABLET PO SCH (21:59)
[2021-07-20] MEDS: ATORVASTATIN CALCIUM 10MG TABLET PO SCH (21:59)
[2021-07-21 00:39] VITALS: BP 156/77
[2021-07-21 04:00] VITALS: BP 154/71
[2021-07-21] MEDS: SODIUM CHLORIDE 0.9% INJ 3ML FLUSH IVF SCH ×3 (06:27→21:04)
[2021-07-21 08:00] VITALS: BP 148/79
[2021-07-21] MEDS: FOLIC ACID/VITAMIN B COMP W-C TABLET PO SCH (08:43)
[2021-07-21] MEDS: LORATADINE 10MG TABLET PO SCH (08:44)
[2021-07-21] MEDS: SEVELAMER CARBONATE 800 MG TABLET PO SCH ×3 (08:44→18:18)
[2021-07-21] MEDS: ENOXAPARIN 30MG/0.3ML SYR SUBCUT SCH (08:44)
[2021-07-21] MEDS: AMLODIPINE 10MG TABLET PO SCH (08:44)
[2021-07-21] MEDS: BENAZEPRIL 10MG TABLET PO SCH (08:44)
[2021-07-21 12:00] VITALS: BP 120/89
[2021-07-21 16:00] VITALS: BP 178/96
[2021-07-21] MEDS: ACETAMINOPHEN 325MG TABLET PO PRN (16:52)
[2021-07-21 20:00] VITALS: BP 144/76
[2021-07-21] MEDS: ATORVASTATIN CALCIUM 10MG TABLET PO SCH (21:04)
[2021-07-21] MEDS: FAMOTIDINE 20MG TABLET PO SCH (21:04)
[2021-07-21] MEDS: HYDRALAZINE 20MG/ML VIAL IV PRN (23:42)
[2021-07-22] VITALS: BP 187/78
[2021-07-22 04:00] VITALS: BP 142/60
[2021-07-22] MEDS: SODIUM CHLORIDE 0.9% INJ 3ML FLUSH IVF SCH ×3 (05:57→21:05)
[2021-07-22 07:58] VITALS: BP 145/58
[2021-07-22 08:29] LABS: BASOPHILS % 1.2 % (0.0-2.0); HEMATOCRIT. 30.4 % (36.0-48.0); LYMPHOCYTES % 19.6 % (20.0-50.0); MEAN CORPUSCULAR VOLUME 73.2 fL (81.0-99.0); MEAN PLATELET VOLUME 8.1 fl (7.4-10.4); MONOCYTES % 7.8 % (2.0-8.0); NEUTROPHILS % 67.4 % (40.0-76.0); PLATELET 308 x1000/uL (130-400); RED BLOOD CELL COUNT 4.15 mill/uL (4.2-5.4); RED CELL DISTRIBUTION WIDTH 19.8 % (11.6-14.6)
[2021-07-22] MEDS: ENOXAPARIN 30MG/0.3ML SYR SUBCUT SCH (08:32)
[2021-07-22] MEDS: BENAZEPRIL 10MG TABLET PO SCH (08:33)
[2021-07-22] MEDS: SEVELAMER CARBONATE 800 MG TABLET PO SCH ×3 (08:33→18:19)
[2021-07-22] MEDS: FOLIC ACID/VITAMIN B COMP W-C TABLET PO SCH (08:33)
[2021-07-22] MEDS: LORATADINE 10MG TABLET PO SCH (08:33)
[2021-07-22] MEDS: AMLODIPINE 10MG TABLET PO SCH (08:33)
[2021-07-22 12:01] VITALS: BP 148/62
[2021-07-22 15:43] VITALS: BP 138/53
[2021-07-22 20:00] VITALS: BP 108/47
[2021-07-22] MEDS: FAMOTIDINE 20MG TABLET PO SCH (20:58)
[2021-07-22] MEDS: ATORVASTATIN CALCIUM 10MG TABLET PO SCH (21:04)
[2021-07-23 00:05] VITALS: BP 116/61
[2021-07-23 04:00] VITALS: BP 142/61
[2021-07-23] MEDS: SODIUM CHLORIDE 0.9% INJ 3ML FLUSH IVF SCH ×2 (05:28→13:07)
[2021-07-23 07:52] VITALS: BP 158/65
[2021-07-23] MEDS: AMLODIPINE 10MG TABLET PO SCH (08:21)
[2021-07-23] MEDS: ENOXAPARIN 30MG/0.3ML SYR SUBCUT SCH (08:21)
[2021-07-23] MEDS: SEVELAMER CARBONATE 800 MG TABLET PO SCH ×3 (08:22→17:46)
[2021-07-23] MEDS: LORATADINE 10MG TABLET PO SCH (08:22)
[2021-07-23] MEDS: BENAZEPRIL 10MG TABLET PO SCH (08:22)
[2021-07-23] MEDS: FOLIC ACID/VITAMIN B COMP W-C TABLET PO SCH (08:22)
[2021-07-23 12:00] VITALS: BP 152/56
[2021-07-23 16:00] VITALS: BP 153/68
[2021-07-24] VITALS: BP 112/59
[2021-07-24] MEDS: ATORVASTATIN CALCIUM 10MG TABLET PO SCH ×2 (01:35→20:57)
[2021-07-24] MEDS: SODIUM CHLORIDE 0.9% INJ 3ML FLUSH IVF SCH ×4 (01:35→20:57)
[2021-07-24] MEDS: FAMOTIDINE 20MG TABLET PO SCH ×2 (01:35→20:57)
[2021-07-24 04:00] VITALS: BP 170/77
[2021-07-24] MEDS: HYDRALAZINE 20MG/ML VIAL IV PRN (05:20)
[2021-07-24 08:00] VITALS: BP 152/68
[2021-07-24] MEDS: SEVELAMER CARBONATE 800 MG TABLET PO SCH ×3 (08:29→18:33)
[2021-07-24] MEDS: FOLIC ACID/VITAMIN B COMP W-C TABLET PO SCH (08:30)
[2021-07-24] MEDS: LORATADINE 10MG TABLET PO SCH (08:36)
[2021-07-24] MEDS: BENAZEPRIL 10MG TABLET PO SCH (08:36)
[2021-07-24] MEDS: ENOXAPARIN 30MG/0.3ML SYR SUBCUT SCH (08:38)
[2021-07-24] MEDS: AMLODIPINE 10MG TABLET PO SCH (08:39)
[2021-07-24 12:00] VITALS: BP 149/59
[2021-07-24 16:00] VITALS: BP 159/71
[2021-07-24 20:00] VITALS: BP 149/69
[2021-07-25] VITALS: BP 164/76
[2021-07-25] MEDS: HYDRALAZINE 20MG/ML VIAL IV PRN (03:04)
[2021-07-25 04:00] VITALS: BP 158/77
[2021-07-25] MEDS: SODIUM CHLORIDE 0.9% INJ 3ML FLUSH IVF SCH ×3 (05:50→21:01)
[2021-07-25 08:00] VITALS: BP 148/78
[2021-07-25] MEDS: SEVELAMER CARBONATE 800 MG TABLET PO SCH ×3 (08:52→17:48)
[2021-07-25] MEDS: BENAZEPRIL 10MG TABLET PO SCH (08:53)
[2021-07-25] MEDS: FOLIC ACID/VITAMIN B COMP W-C TABLET PO SCH (08:54)
[2021-07-25] MEDS: LORATADINE 10MG TABLET PO SCH (08:54)
[2021-07-25] MEDS: ENOXAPARIN 30MG/0.3ML SYR SUBCUT SCH (08:54)
[2021-07-25] MEDS: AMLODIPINE 10MG TABLET PO SCH (08:54)
[2021-07-25 12:00] VITALS: BP 127/59
[2021-07-25 16:00] VITALS: BP 133/74
[2021-07-25 20:00] VITALS: BP 151/80
[2021-07-25] MEDS: FAMOTIDINE 20MG TABLET PO SCH (21:01)
[2021-07-25] MEDS: ATORVASTATIN CALCIUM 10MG TABLET PO SCH (21:01)
[2021-07-25 22:45] LABS: HEPATITIS B SURFACE ANTIGEN NEGATIVE
[2021-07-26] VITALS: BP 107/50
[2021-07-26 04:00] VITALS: BP 130/59
[2021-07-26] MEDS: SODIUM CHLORIDE 0.9% INJ 3ML FLUSH IVF SCH ×3 (05:26→21:09)
[2021-07-26 08:00] VITALS: BP 125/79
[2021-07-26] MEDS: BENAZEPRIL 10MG TABLET PO SCH ×2 (09:00→09:04)
[2021-07-26] MEDS: AMLODIPINE 10MG TABLET PO SCH ×2 (09:00→09:04)
[2021-07-26] MEDS: FOLIC ACID/VITAMIN B COMP W-C TABLET PO SCH (09:04)
[2021-07-26] MEDS: LORATADINE 10MG TABLET PO SCH (09:04)
[2021-07-26] MEDS: SEVELAMER CARBONATE 800 MG TABLET PO SCH ×3 (09:04→18:26)
[2021-07-26] MEDS: ENOXAPARIN 30MG/0.3ML SYR SUBCUT SCH (09:05)
[2021-07-26 12:00] VITALS: BP 142/73
[2021-07-26 16:00] VITALS: BP 170/85
[2021-07-26] MEDS: HYDRALAZINE 20MG/ML VIAL IV PRN (16:06)
[2021-07-26 20:00] VITALS: BP 129/60
[2021-07-26] MEDS: ATORVASTATIN CALCIUM 10MG TABLET PO SCH (21:09)
[2021-07-26] MEDS: FAMOTIDINE 20MG TABLET PO SCH (21:09)
[2021-07-27] VITALS: BP 98/51
[2021-07-27 04:00] VITALS: BP 155/71
[2021-07-27] MEDS: SODIUM CHLORIDE 0.9% INJ 3ML FLUSH IVF SCH ×3 (05:32→21:00)
[2021-07-27 08:00] VITALS: BP 124/66
[2021-07-27] MEDS: SEVELAMER CARBONATE 800 MG TABLET PO SCH ×3 (09:11→17:39)
[2021-07-27] MEDS: ENOXAPARIN 30MG/0.3ML SYR SUBCUT SCH (09:12)
[2021-07-27] MEDS: AMLODIPINE 10MG TABLET PO SCH (09:12)
[2021-07-27] MEDS: LORATADINE 10MG TABLET PO SCH (09:12)
[2021-07-27] MEDS: FOLIC ACID/VITAMIN B COMP W-C TABLET PO SCH (09:12)
[2021-07-27] MEDS: BENAZEPRIL 10MG TABLET PO SCH (09:12)
[2021-07-27 12:00] VITALS: BP 120/52
[2021-07-27 16:00] VITALS: BP 129/65
[2021-07-27 20:00] VITALS: BP 135/69
[2021-07-27] MEDS: ATORVASTATIN CALCIUM 10MG TABLET PO SCH (20:59)
[2021-07-27] MEDS: FAMOTIDINE 20MG TABLET PO SCH (21:00)
[2021-07-28] VITALS: BP 129/74
[2021-07-28 04:00] VITALS: BP 131/65
[2021-07-28] MEDS: SODIUM CHLORIDE 0.9% INJ 3ML FLUSH IVF SCH ×2 (04:53→14:00)
[2021-07-28 08:00] VITALS: BP 141/70
[2021-07-28] MEDS: ENOXAPARIN 30MG/0.3ML SYR SUBCUT SCH (09:00)
[2021-07-28] MEDS: SEVELAMER CARBONATE 800 MG TABLET PO SCH ×3 (09:14→18:01)
[2021-07-28] MEDS: AMLODIPINE 10MG TABLET PO SCH (09:15)
[2021-07-28] MEDS: FOLIC ACID/VITAMIN B COMP W-C TABLET PO SCH (09:15)
[2021-07-28] MEDS: BENAZEPRIL 10MG TABLET PO SCH (09:15)
[2021-07-28] MEDS: LORATADINE 10MG TABLET PO SCH (09:15)
[2021-07-28 12:00] VITALS: BP 145/70
[2021-07-28 16:00] VITALS: BP 129/69
[2021-07-28 20:00] VITALS: BP 123/62
[2021-07-28] MEDS: ATORVASTATIN CALCIUM 10MG TABLET PO SCH (23:08)
[2021-07-28] MEDS: FAMOTIDINE 20MG TABLET PO SCH (23:08)
[2021-07-29] VITALS: BP 118/62
[2021-07-29 04:00] VITALS: BP 121/61
[2021-07-29 05:25] LABS: BASOPHILS % 0.8 % (0.0-2.0); EOSINOPHILS % 2.2 % (0.0-5.0); HEMATOCRIT. 34.4 % (36.0-48.0); HEMOGLOBIN. 11.1 g/dL (12.0-16.0); LYMPHOCYTES % 23.3 % (20.0-50.0); MEAN CORPUSCULAR HEMOGLOBIN 23.6 pg (28.0-32.0); MEAN PLATELET VOLUME 7.9 fl (7.4-10.4); MONOCYTES % 7.9 % (2.0-8.0); NEUTROPHILS % 65.8 % (40.0-76.0); PLATELET 262 x1000/uL (130-400); RED BLOOD CELL COUNT 4.72 mill/uL (4.2-5.4); RED CELL DISTRIBUTION WIDTH 20.7 % (11.6-14.6)
[2021-07-29] MEDS: SODIUM CHLORIDE 0.9% INJ 3ML FLUSH IVF SCH ×3 (07:13→20:47)
[2021-07-29 08:00] VITALS: BP 136/66
[2021-07-29] MEDS: BENAZEPRIL 10MG TABLET PO SCH (08:22)
[2021-07-29] MEDS: LORATADINE 10MG TABLET PO SCH (08:22)
[2021-07-29] MEDS: FOLIC ACID/VITAMIN B COMP W-C TABLET PO SCH (08:22)
[2021-07-29] MEDS: AMLODIPINE 10MG TABLET PO SCH (08:22)
[2021-07-29] MEDS: ENOXAPARIN 30MG/0.3ML SYR SUBCUT SCH (08:23)
[2021-07-29] MEDS: SEVELAMER CARBONATE 800 MG TABLET PO SCH ×3 (08:27→17:49)
[2021-07-29 12:00] VITALS: BP 149/66
[2021-07-29 16:00] VITALS: BP 97/46
[2021-07-29 20:00] VITALS: BP 157/67
[2021-07-29] MEDS: ATORVASTATIN CALCIUM 10MG TABLET PO SCH (21:48)
[2021-07-29] MEDS: FAMOTIDINE 20MG TABLET PO SCH (21:48)
[2021-07-30 00:05] VITALS: BP 131/61
[2021-07-30 04:00] VITALS: BP 155/66
[2021-07-30 08:00] VITALS: BP 154/67
[2021-07-30] MEDS: SEVELAMER CARBONATE 800 MG TABLET PO SCH ×3 (08:54→17:51)
[2021-07-30] MEDS: FOLIC ACID/VITAMIN B COMP W-C TABLET PO SCH (08:54)
[2021-07-30] MEDS: AMLODIPINE 10MG TABLET PO SCH (08:54)
[2021-07-30] MEDS: BENAZEPRIL 10MG TABLET PO SCH (08:55)
[2021-07-30] MEDS: ENOXAPARIN 30MG/0.3ML SYR SUBCUT SCH (08:55)
[2021-07-30] MEDS: LORATADINE 10MG TABLET PO SCH (08:55)
[2021-07-30] MEDS: ACETAMINOPHEN 325MG TABLET PO PRN (09:27)
[2021-07-30 12:00] VITALS: BP 132/54
[2021-07-30] MEDS: SODIUM CHLORIDE 0.9% INJ 3ML FLUSH IVF SCH ×2 (13:01→20:40)
[2021-07-30 16:00] VITALS: BP 137/67
[2021-07-30 20:00] VITALS: BP 164/71
[2021-07-30] MEDS: FAMOTIDINE 20MG TABLET PO SCH (20:40)
[2021-07-30] MEDS: ATORVASTATIN CALCIUM 10MG TABLET PO SCH (20:40)
[2021-07-31] VITALS (7 sets, daily range): BP systolic 115–173; BP diastolic 53–79
[2021-07-31] MEDS: SODIUM CHLORIDE 0.9% INJ 3ML FLUSH IVF SCH ×3 (06:00→21:28)
[2021-07-31] MEDS: BENAZEPRIL 10MG TABLET PO SCH (09:11)
[2021-07-31] MEDS: FOLIC ACID/VITAMIN B COMP W-C TABLET PO SCH (09:11)
[2021-07-31] MEDS: LORATADINE 10MG TABLET PO SCH (09:11)
[2021-07-31] MEDS: SEVELAMER CARBONATE 800 MG TABLET PO SCH ×3 (09:11→17:51)
[2021-07-31] MEDS: ENOXAPARIN 30MG/0.3ML SYR SUBCUT SCH (09:11)
[2021-07-31] MEDS: AMLODIPINE 10MG TABLET PO SCH (09:11)
[2021-07-31] MEDS: FAMOTIDINE 20MG TABLET PO SCH (21:27)
[2021-07-31] MEDS: ATORVASTATIN CALCIUM 10MG TABLET PO SCH (21:27)
[2021-08-01] VITALS: BP 108/51
[2021-08-01 04:00] VITALS: BP 112/72
[2021-08-01] MEDS: SODIUM CHLORIDE 0.9% INJ 3ML FLUSH IVF SCH ×2 (05:47→13:03)
[2021-08-01 08:03] VITALS: BP 129/45
[2021-08-01] MEDS: LORATADINE 10MG TABLET PO SCH (08:13)
[2021-08-01] MEDS: BENAZEPRIL 10MG TABLET PO SCH (08:13)
[2021-08-01] MEDS: AMLODIPINE 10MG TABLET PO SCH (08:13)
[2021-08-01] MEDS: FOLIC ACID/VITAMIN B COMP W-C TABLET PO SCH (08:13)
[2021-08-01] MEDS: ENOXAPARIN 30MG/0.3ML SYR SUBCUT SCH (08:13)
[2021-08-01] MEDS: SEVELAMER CARBONATE 800 MG TABLET PO SCH ×3 (08:13→18:19)
[2021-08-01 11:35] VITALS: BP 137/63
[2021-08-01 16:05] VITALS: BP 126/62
[2021-08-01 20:33] VITALS: BP 126/68
== END 2021-08-01 20:40 | DRG 682 ==
LOC: ER 14:14 → 7WST 18:57 → EDBEDREQ 19:09 → ENRESERV 07-17 08:52
PROVIDERS: ADMIT Internal Medicine; ATTEND Internal Medicine
PROC: 5A1D70Z Performance of Urinary Filtration, Intermittent, Less than 6 Hours Per Day (ICD-10-PCS; principal; 2021-07-21)
PROC: 5A1D70Z Performance of Urinary Filtration, Intermittent, Less than 6 Hours Per Day (ICD-10-PCS; 2021-07-23)
PROC: 5A1D70Z Performance of Urinary Filtration, Intermittent, Less than 6 Hours Per Day (ICD-10-PCS; 2021-07-25)
PROC: 5A1D70Z Performance of Urinary Filtration, Intermittent, Less than 6 Hours Per Day (ICD-10-PCS; 2021-07-28)
PROC: 5A1D70Z Performance of Urinary Filtration, Intermittent, Less than 6 Hours Per Day (ICD-10-PCS; 2021-07-30)
PROC: 5A1D70Z Performance of Urinary Filtration, Intermittent, Less than 6 Hours Per Day (ICD-10-PCS; 2021-08-01)
DX: I12.0 Hypertensive chronic kidney disease with stage 5 chronic kidney disease or end stage renal disease (principal); U07.1 COVID-19; N18.6 End stage renal disease; I69.354 Hemiplegia and hemiparesis following cerebral infarction affecting left non-dominant side; G31.84 Mild cognitive impairment of uncertain or unknown etiology; E78.5 Hyperlipidemia, unspecified; J44.9 Chronic obstructive pulmonary disease, unspecified; F41.9 Anxiety disorder, unspecified; N83.202 Unspecified ovarian cyst, left side; N83.201 Unspecified ovarian cyst, right side; I51.7 Cardiomegaly; D64.9 Anemia, unspecified; R91.8 Other nonspecific abnormal finding of lung field; E78.00 Pure hypercholesterolemia, unspecified; E21.1 Secondary hyperparathyroidism, not elsewhere classified; E11.22 Type 2 diabetes mellitus with diabetic chronic kidney disease; Z91.15 Patient's noncompliance with renal dialysis; Z99.2 Dependence on renal dialysis; Z79.2 Long term (current) use of antibiotics; Z79.899 Other long term (current) drug therapy; Z79.1 Long term (current) use of non-steroidal anti-inflammatories (NSAID); Z82.49 Family history of ischemic heart disease and other diseases of the circulatory system
CPT/HCPCS: 36415; 71045; 80048; 80053; 82962; 85025; 86705; 86709; 86803; 87340; 87426; 87635; 93005; 99285; C1893; J0360; J0885; J1650; J7040

== ENCOUNTER 2021-08-20 17:07 | Inpatient (IN) | payer MEDICARE, MEDICAID ==
[~2021-08-20] VITALS: Ht 170.2 cm; Wt 72.1 kg
[2021-08-20 18:44] LABS: BASOPHILS % 0.8 % (0.0-2.0); EOSINOPHILS % 1.1 % (0.0-5.0); HEMATOCRIT. 34.8 % (36.0-48.0); HEMOGLOBIN. 11.6 g/dL (12.0-16.0); LYMPHOCYTES % 12.8 % (20.0-50.0); MEAN CORPUSCULAR HEMOGLOBIN 24.4 pg (28.0-32.0); MEAN CORPUSCULAR VOLUME 73.1 fL (81.0-99.0); MEAN PLATELET VOLUME 7.8 fl (7.4-10.4); NEUTROPHILS % 81.3 % (40.0-76.0); PLATELET 278 x1000/uL (130-400); RED BLOOD CELL COUNT 4.76 mill/uL (4.2-5.4); RED CELL DISTRIBUTION WIDTH 20.4 % (11.6-14.6)
[2021-08-20 19:10] LABS: CHLORIDE 110 mEq/L (98-107)
[2021-08-20 19:14] LABS: ETHANOL BLOOD < 10 mg/dL
[2021-08-20] MEDS ORDERED: MAGNESIUM/ALUMINUM HYDROXIDE/SIMETHICONE 30ML UDC PO PRN (21:45)
[2021-08-20] MEDS ORDERED: DOCUSATE SODIUM 100MG CAPSULE PO PRN (21:45)
[2021-08-20] MEDS ORDERED: LORAZEPAM 2MG/ML CPJ IV PRN (21:45)
[2021-08-20] MEDS ORDERED: HYDRALAZINE 20MG/ML VIAL IV PRN (21:45)
[2021-08-20] MEDS ORDERED: ACETAMINOPHEN 325MG TABLET PO PRN (21:45)
[2021-08-20] MEDS ORDERED: IPRATROPIUM/ALBUTEROL 0.5-3(2.5)MG/3ML NEB HHN PRN (21:45)
[2021-08-20] MEDS ORDERED: GUAIFENESIN 200MG/10ML SUGAR FREE UDC PO PRN (21:45)
[2021-08-20] MEDS ORDERED: HYDROCODONE/ACETAMINOPHEN 5/325MG TABLET PO PRN (21:45)
[2021-08-20] MEDS ORDERED: CLONIDINE 0.1MG TABLET PO PRN (21:45)
[2021-08-20] MEDS ORDERED: MORPHINE SULFATE 2 MG/ML CPJ (NOT FOR IM USE) IV PRN (21:45)
[2021-08-20] MEDS ORDERED: ONDANSETRON HCL 4MG/2ML INJ IV PRN (21:45)
[2021-08-20] MEDS ORDERED: DIPHENHYDRAMINE 50MG/ML VIAL IV PRN (21:45)
[2021-08-20] MEDS: SODIUM CHLORIDE 0.9% INJ 3ML FLUSH IVF SCH (22:00)
[2021-08-20] MEDS: ENOXAPARIN 30MG/0.3ML SYR SUBCUT SCH (22:00)
[2021-08-20] MEDS ORDERED: KCL 20MEQ/100ML PREMIX 100 ML IV ONE (22:00)
[2021-08-21] MEDS: SODIUM CHLORIDE 0.9% INJ 3ML FLUSH IVF SCH (06:37)
[2021-08-21 09:18] LABS: BASOPHILS % 1.9 % (0.0-2.0); EOSINOPHILS % 0.8 % (0.0-5.0); HEMATOCRIT. 31.4 % (36.0-48.0); HEMOGLOBIN. 10.5 g/dL (12.0-16.0); MEAN CORPUSCULAR HEMOGLOBIN 24.1 pg (28.0-32.0); MEAN CORPUSCULAR VOLUME 72.2 fL (81.0-99.0); MEAN PLATELET VOLUME 7.6 fl (7.4-10.4); MONOCYTES % 5.6 % (2.0-8.0); NEUTROPHILS % 68.7 % (40.0-76.0); PLATELET 227 x1000/uL (130-400); RED BLOOD CELL COUNT 4.35 mill/uL (4.2-5.4); RED CELL DISTRIBUTION WIDTH 19.7 % (11.6-14.6)
[2021-08-21 09:27] LABS: CHLORIDE 102 mEq/L (98-107)
[2021-08-21 09:35] LABS: LDL CHOLESTEROL 99 mg/dL (5-100)
[2021-08-21 09:36] LABS: HDL CHOLESTEROL 61 mg/dL (40-59)
[2021-08-21 09:39] VITALS: BP 143/54
[2021-08-21 10:00] VITALS: BP 143/54
[2021-08-21 12:00] VITALS: BP 131/61
[2021-08-21] MEDS ORDERED: INSLIS SUBCUT (12:48)
[2021-08-21] MEDS ORDERED: CLAR10 PO (12:48)
[2021-08-21] MEDS ORDERED: CLON0.1T PO (12:48)
[2021-08-21] MEDS ORDERED: FAMO20TA8 PO (12:48)
[2021-08-21 15:55] VITALS: BP 141/82
[2021-08-21 16:07] LABS: CREATINE KINASE 17 IU/L (26-192)
[2021-08-21 16:08] LABS: CREATINE KINASE MB FRACTION < 1.0 ng/mL (0.5-3.6)
[2021-08-21 16:27] LABS: HEPATITIS B SURFACE ANTIGEN NEGATIVE
[2021-08-21 20:00] VITALS: BP 105/60
[2021-08-21] MEDS: ENOXAPARIN 30MG/0.3ML SYR SUBCUT SCH (21:14)
[2021-08-21 23:42] VITALS: BP 114/60
[2021-08-22 01:31] LABS: CREATINE KINASE 19 IU/L (26-192)
[2021-08-22 01:32] LABS: CREATINE KINASE MB FRACTION < 1.0 ng/mL (0.5-3.6)
[2021-08-22 03:47] VITALS: BP 158/69
[2021-08-22 07:56] VITALS: BP 166/72
[2021-08-22] MEDS ORDERED: HEPARIN SODIUM 1,000 UNIT/1ML VIAL IV NR (09:45)
[2021-08-22 10:42] LABS: CREATINE KINASE 21 IU/L (26-192)
[2021-08-22 10:43] LABS: CREATINE KINASE MB FRACTION < 1.0 ng/mL (0.5-3.6)
[2021-08-22 12:20] VITALS: BP 149/60
[2021-08-22 16:01] VITALS: BP 147/90
[2021-08-22 20:00] VITALS: BP 167/74
[2021-08-22] MEDS: CLONIDINE 0.1MG TABLET PO PRN (21:01)
[2021-08-22] MEDS: ENOXAPARIN 30MG/0.3ML SYR SUBCUT SCH (21:01)
[2021-08-22 23:48] VITALS: BP 118/55
[2021-08-23 04:00] VITALS: BP 126/52
[2021-08-23 08:00] VITALS: BP 135/60
[2021-08-23 12:00] VITALS: BP 150/67
[2021-08-23 16:00] VITALS: BP 145/74
[2021-08-23 18:00] VITALS: BP 145/59
[2021-08-23 20:00] VITALS: BP 138/61
[2021-08-23] MEDS: ENOXAPARIN 30MG/0.3ML SYR SUBCUT SCH (21:46)
[2021-08-24] VITALS: BP 152/59
[2021-08-24 04:00] VITALS: BP 162/64
[2021-08-24] MEDS: CLONIDINE 0.1MG TABLET PO PRN (04:21)
[2021-08-24 08:00] VITALS: BP 140/61
[2021-08-24 11:08] VITALS: BP 140/61
[2021-08-24 12:00] VITALS: BP 135/70
== END 2021-08-24 13:25 | DRG 73 ==
LOC: ER 17:07 → MICUSO 20:44 → EDBEDREQTM 20:46 → EDBEDREQSVC 20:46 → EDBEDREQ 20:46 → 6WST 08-21 12:06
PROVIDERS: ADMIT Internal Medicine; ATTEND Internal Medicine
PROC: 5A1D70Z Performance of Urinary Filtration, Intermittent, Less than 6 Hours Per Day (ICD-10-PCS; principal; 2021-08-22)
DX: G90.8 Other disorders of autonomic nervous system (principal); G93.41 Metabolic encephalopathy; N18.6 End stage renal disease; I69.354 Hemiplegia and hemiparesis following cerebral infarction affecting left non-dominant side; N25.81 Secondary hyperparathyroidism of renal origin; I12.0 Hypertensive chronic kidney disease with stage 5 chronic kidney disease or end stage renal disease; R47.01 Aphasia; E87.1 Hypo-osmolality and hyponatremia; E11.22 Type 2 diabetes mellitus with diabetic chronic kidney disease; E87.6 Hypokalemia; J44.9 Chronic obstructive pulmonary disease, unspecified; F41.9 Anxiety disorder, unspecified; Z20.822 Contact with and (suspected) exposure to COVID-19; D64.9 Anemia, unspecified; E78.00 Pure hypercholesterolemia, unspecified; R41.89 Other symptoms and signs involving cognitive functions and awareness; E78.5 Hyperlipidemia, unspecified; Z82.49 Family history of ischemic heart disease and other diseases of the circulatory system; Z99.2 Dependence on renal dialysis; Z84.1 Family history of disorders of kidney and ureter; Z79.899 Other long term (current) drug therapy; Z86.16 Personal history of COVID-19
CPT/HCPCS: 36415; 70551; 71045; 80053; 80061; 80320; 82550; 82553; 82962; 83036; 83880; 84439; 84443; 84484; 85025; 85379; 86705; 86709; 86803; 87340; 87426; 93005; 93306; 93970; 99285; A6261; J0360; J1644; J1650; J3480; G0480

== ENCOUNTER 2021-11-17 16:16 | Inpatient (IN) | payer MEDICARE, MEDICAID ==
[~2021-11-17] VITALS: Ht 167.6 cm; Wt 74.4 kg
[~2021-11-17 16:16] MED LIST changes: -ACET650T37 PO; -AMLO-337 PO; -BENA40TA9 PO; -LORA10TA7 PO; -SEVE800T8 PO
[2021-11-17 17:45] LABS: HEMATOCRIT. 33.3 % (36.0-48.0); HEMOGLOBIN. 10.6 g/dL (12.0-16.0); MEAN CORPUSCULAR HEMOGLOBIN 22.6 pg (28.0-32.0); MEAN CORPUSCULAR VOLUME 70.9 fL (81.0-99.0); MEAN PLATELET VOLUME 7.4 fl (7.4-10.4); PLATELET 286 x1000/uL (130-400); RED CELL DISTRIBUTION WIDTH 17.6 % (11.6-14.6)
[2021-11-17] MEDS ORDERED: IOHEXOL-350 100 ML BOTTLE ONE (17:59)
[2021-11-17 18:15] LABS: PLATELET ESTIMATE NORMAL
[2021-11-17] MEDS ORDERED: ACETAMINOPHEN 325MG TABLET PO PRN ×2 (18:30)
[2021-11-17] MEDS ORDERED: MAGNESIUM/ALUMINUM HYDROXIDE/SIMETHICONE 30ML UDC PO PRN (18:30)
[2021-11-17] MEDS ORDERED: ONDANSETRON HCL 4MG/2ML INJ IV PRN (18:30)
[2021-11-17] MEDS ORDERED: DIPHENHYDRAMINE 50MG/ML VIAL IV PRN (18:30)
[2021-11-17 18:43] LABS: CHLORIDE 98 mEq/L (98-107)
[2021-11-17 18:52] LABS: ETHANOL BLOOD < 10 mg/dL
[2021-11-17] MEDS ORDERED: ASPIRIN 325MG TABLET PO ONE (20:00)
[2021-11-17] MEDS ORDERED: ZOLPIDEM TARTRATE 5MG TABLET PO PRN (20:00)
[2021-11-17] MEDS: SODIUM CHLORIDE 0.9% INJ 3ML FLUSH IVF SCH (22:00)
[2021-11-18] VITALS (7 sets, daily range): BP systolic 132–204; BP diastolic 56–86
[2021-11-18] MEDS: HYDRALAZINE 20MG/ML VIAL IV PRN ×3 (01:28→16:34)
[2021-11-18] MEDS: HYDRALAZINE HCL 50MG TABLET PO SCH ×3 (06:00→21:21)
[2021-11-18] MEDS: SODIUM CHLORIDE 0.9% INJ 3ML FLUSH IVF SCH ×3 (06:36→21:21)
[2021-11-18] MEDS: ASPIRIN 81MG EC TABLET PO SCH (08:45)
[2021-11-18] MEDS: AMLODIPINE 10MG TABLET PO SCH (08:45)
[2021-11-18] MEDS: ENOXAPARIN 30MG/0.3ML SYR SUBCUT SCH (09:12)
[2021-11-18 20:45] LABS: BASOPHILS % 1.7 % (0.0-2.0); HEMATOCRIT. 30.1 % (36.0-48.0); LYMPHOCYTES % 22.2 % (20.0-50.0); MEAN CORPUSCULAR HEMOGLOBIN 23.1 pg (28.0-32.0); MEAN CORPUSCULAR VOLUME 69.7 fL (81.0-99.0); MEAN PLATELET VOLUME 8.4 fl (7.4-10.4); MONOCYTES % 4.1 % (2.0-8.0); PLATELET 265 x1000/uL (130-400); RED BLOOD CELL COUNT 4.32 mill/uL (4.2-5.4); RED CELL DISTRIBUTION WIDTH 17.9 % (11.6-14.6)
[2021-11-18] MEDS: ATORVASTATIN CALCIUM 10MG TABLET PO SCH (21:20)
[2021-11-18 21:34] LABS: HEPATITIS B SURFACE ANTIGEN NEGATIVE
[2021-11-19] VITALS: BP 197/62
[2021-11-19] MEDS: LORAZEPAM 2MG/ML CPJ IV PRN (00:42)
[2021-11-19] MEDS: HYDRALAZINE HCL 50MG TABLET PO SCH (05:03)
[2021-11-19] MEDS: SODIUM CHLORIDE 0.9% INJ 3ML FLUSH IVF SCH ×3 (05:04→22:45)
[2021-11-19 05:09] VITALS: BP 160/63
[2021-11-19 08:00] VITALS: BP 169/96
[2021-11-19] MEDS: ENOXAPARIN 30MG/0.3ML SYR SUBCUT SCH (08:20)
[2021-11-19] MEDS: ASPIRIN 81MG EC TABLET PO SCH (08:21)
[2021-11-19] MEDS: AMLODIPINE 10MG TABLET PO SCH (08:21)
[2021-11-19 12:00] VITALS: BP 200/68
[2021-11-19] MEDS: HYDRALAZINE 20MG/ML VIAL IV PRN ×2 (13:05→22:46)
[2021-11-19] MEDS: HYDRALAZINE HCL 100MG TABLET PO SCH ×2 (13:13→22:45)
[2021-11-19 16:00] VITALS: BP 211/85
[2021-11-19] MEDS: CLONIDINE 0.1MG TABLET PO PRN (16:38)
[2021-11-19 20:00] VITALS: BP 202/73
[2021-11-19] MEDS: ATORVASTATIN CALCIUM 10MG TABLET PO SCH (22:45)
[2021-11-20] VITALS: BP 171/69
[2021-11-20 04:00] VITALS: BP 175/71
[2021-11-20] MEDS: SODIUM CHLORIDE 0.9% INJ 3ML FLUSH IVF SCH ×2 (05:33→14:37)
[2021-11-20] MEDS: HYDRALAZINE HCL 100MG TABLET PO SCH ×3 (05:33→22:59)
[2021-11-20 08:00] VITALS: BP 178/68
[2021-11-20] MEDS: ENOXAPARIN 30MG/0.3ML SYR SUBCUT SCH (10:08)
[2021-11-20] MEDS: CLONIDINE 0.1MG TABLET PO PRN (10:08)
[2021-11-20] MEDS: ASPIRIN 81MG EC TABLET PO SCH ×2 (10:08→20:36)
[2021-11-20] MEDS: AMLODIPINE 10MG TABLET PO SCH (10:08)
[2021-11-20] MEDS: LOSARTAN POTASSIUM 50 MG TABLET PO SCH (10:33)
[2021-11-20 12:00] VITALS: BP 140/64
[2021-11-20 16:00] VITALS: BP 142/50
[2021-11-20 20:00] VITALS: BP 124/52
[2021-11-20] MEDS: ATORVASTATIN CALCIUM 10MG TABLET PO SCH (20:36)
[2021-11-21] VITALS: BP 129/53
[2021-11-21] MEDS: LORAZEPAM 2MG/ML CPJ IV PRN (00:15)
[2021-11-21 04:00] VITALS: BP 168/146
[2021-11-21] MEDS: HYDRALAZINE HCL 100MG TABLET PO SCH ×3 (05:36→22:21)
[2021-11-21 08:00] VITALS: BP 155/99
[2021-11-21] MEDS: ENOXAPARIN 30MG/0.3ML SYR SUBCUT SCH (09:31)
[2021-11-21] MEDS: AMLODIPINE 10MG TABLET PO SCH (09:31)
[2021-11-21] MEDS: LOSARTAN POTASSIUM 50 MG TABLET PO SCH (09:31)
[2021-11-21 12:00] VITALS: BP 165/87
[2021-11-21] MEDS: CLONIDINE 0.1MG TABLET PO PRN ×2 (15:11→21:11)
[2021-11-21 16:00] VITALS: BP 159/69
[2021-11-21 20:00] VITALS: BP 170/68
[2021-11-21] MEDS: ATORVASTATIN CALCIUM 10MG TABLET PO SCH (21:10)
[2021-11-21] MEDS: SODIUM CHLORIDE 0.9% INJ 3ML FLUSH IVF SCH (22:21)
[2021-11-22] VITALS: BP 135/59
[2021-11-22 04:00] VITALS: BP 168/61
[2021-11-22] MEDS: HYDRALAZINE HCL 100MG TABLET PO SCH ×3 (05:45→20:28)
[2021-11-22] MEDS: SODIUM CHLORIDE 0.9% INJ 3ML FLUSH IVF SCH ×3 (05:46→20:28)
[2021-11-22 08:00] VITALS: BP 145/76
[2021-11-22] MEDS: ASPIRIN 81MG EC TABLET PO SCH (08:47)
[2021-11-22] MEDS: LOSARTAN POTASSIUM 50 MG TABLET PO SCH (08:47)
[2021-11-22] MEDS: ENOXAPARIN 30MG/0.3ML SYR SUBCUT SCH (08:48)
[2021-11-22] MEDS: AMLODIPINE 10MG TABLET PO SCH (08:48)
[2021-11-22 12:00] VITALS: BP 154/73
[2021-11-22 16:00] VITALS: BP 149/72
[2021-11-22 20:00] VITALS: BP 176/63
[2021-11-22] MEDS: ATORVASTATIN CALCIUM 10MG TABLET PO SCH (20:28)
[2021-11-23] VITALS: BP 152/64
[2021-11-23] MEDS: HYDRALAZINE 20MG/ML VIAL IV PRN ×2 (03:52→19:07)
[2021-11-23 04:00] VITALS: BP 174/64
[2021-11-23] MEDS: HYDRALAZINE HCL 100MG TABLET PO SCH ×3 (05:58→21:59)
[2021-11-23] MEDS: SODIUM CHLORIDE 0.9% INJ 3ML FLUSH IVF SCH ×3 (05:58→21:58)
[2021-11-23 08:00] VITALS: BP 158/75
[2021-11-23] MEDS: ENOXAPARIN 30MG/0.3ML SYR SUBCUT SCH (09:17)
[2021-11-23] MEDS: ASPIRIN 81MG EC TABLET PO SCH (09:17)
[2021-11-23] MEDS: LOSARTAN POTASSIUM 50 MG TABLET PO SCH (09:18)
[2021-11-23] MEDS: AMLODIPINE 10MG TABLET PO SCH (09:18)
[2021-11-23 12:00] VITALS: BP 167/80
[2021-11-23 16:00] VITALS: BP 193/75
[2021-11-23 20:00] VITALS: BP 114/75
[2021-11-23] MEDS: CLONIDINE 0.1MG TABLET PO SCH (21:59)
[2021-11-23] MEDS: ATORVASTATIN CALCIUM 10MG TABLET PO SCH (21:59)
[2021-11-24] VITALS: BP 125/74
[2021-11-24 04:00] VITALS: BP 141/83
[2021-11-24] MEDS: HYDRALAZINE HCL 100MG TABLET PO SCH ×2 (05:40→13:59)
[2021-11-24] MEDS: SODIUM CHLORIDE 0.9% INJ 3ML FLUSH IVF SCH ×2 (05:40→14:00)
[2021-11-24] MEDS: CLONIDINE 0.1MG TABLET PO SCH ×2 (05:40→13:59)
[2021-11-24 08:07] VITALS: BP 159/55
[2021-11-24] MEDS: ENOXAPARIN 30MG/0.3ML SYR SUBCUT SCH (09:03)
[2021-11-24] MEDS: ASPIRIN 81MG EC TABLET PO SCH (09:03)
[2021-11-24] MEDS: AMLODIPINE 10MG TABLET PO SCH (09:07)
[2021-11-24 12:26] VITALS: BP 151/59
[2021-11-24 16:20] VITALS: BP 155/79
[2021-11-24] MEDS: HYDRALAZINE 20MG/ML VIAL IV PRN (17:18)
[2021-11-24 17:21] LABS: HEPATITIS B SURFACE ANTIGEN NEGATIVE
[2021-11-24 17:40] VITALS: BP 157/64
== END 2021-11-24 21:15 | DRG 304 ==
LOC: ER 16:16 → 6WST 19:50 → EDBEDREQ 19:53 → EDBEDREQSVC 19:53 → EDBEDREQTM 19:53 → ENRESERV 21:17
PROVIDERS: ADMIT Internal Medicine; ATTEND Internal Medicine
PROC: 4A00X4Z Measurement of Central Nervous Electrical Activity, External Approach (ICD-10-PCS; principal; 2021-11-18)
PROC: 5A1D70Z Performance of Urinary Filtration, Intermittent, Less than 6 Hours Per Day (ICD-10-PCS; 2021-11-18)
PROC: 5A1D70Z Performance of Urinary Filtration, Intermittent, Less than 6 Hours Per Day (ICD-10-PCS; 2021-11-20)
PROC: 5A1D70Z Performance of Urinary Filtration, Intermittent, Less than 6 Hours Per Day (ICD-10-PCS; 2021-11-22)
PROC: 5A1D70Z Performance of Urinary Filtration, Intermittent, Less than 6 Hours Per Day (ICD-10-PCS; 2021-11-24)
DX: I16.0 Hypertensive urgency (principal); N18.6 End stage renal disease; G93.41 Metabolic encephalopathy; G45.9 Transient cerebral ischemic attack, unspecified; I50.30 Unspecified diastolic (congestive) heart failure; I12.0 Hypertensive chronic kidney disease with stage 5 chronic kidney disease or end stage renal disease; E11.22 Type 2 diabetes mellitus with diabetic chronic kidney disease; E87.5 Hyperkalemia; F03.90 Unspecified dementia, unspecified severity, without behavioral disturbance, psychotic disturbance, mood disturbance, and anxiety; E78.00 Pure hypercholesterolemia, unspecified; I66.02 Occlusion and stenosis of left middle cerebral artery; J44.9 Chronic obstructive pulmonary disease, unspecified; D64.9 Anemia, unspecified; R62.7 Adult failure to thrive; F41.9 Anxiety disorder, unspecified; Z99.2 Dependence on renal dialysis; Z91.15 Patient's noncompliance with renal dialysis; Z82.49 Family history of ischemic heart disease and other diseases of the circulatory system; Z84.1 Family history of disorders of kidney and ureter; Z20.822 Contact with and (suspected) exposure to COVID-19; M85.80 Other specified disorders of bone density and structure, unspecified site; R56.9 Unspecified convulsions; Z75.1 Person awaiting admission to adequate facility elsewhere
CPT/HCPCS: 36415; 70496; 70498; 70551; 71045; 80048; 80053; 80320; 82248; 84484; 85025; 86705; 86709; 86803; 87340; 87426; 92610; 93005; 95816; 97162; 97166; 97530; 99291; J0360; J1650; J2060; Q9967; G0480

== ENCOUNTER 2021-12-10 18:19 | Inpatient (IN) | payer MEDICARE, MEDICAID ==
[~2021-12-10] VITALS: Ht 167.6 cm; Wt 75.3 kg
[2021-12-10] MEDS ORDERED: ACETAMINOPHEN 325MG TABLET PO PRN ×2 (19:30)
[2021-12-10] MEDS ORDERED: DIPHENHYDRAMINE 50MG/ML VIAL IV PRN (19:30)
[2021-12-10] MEDS ORDERED: LORAZEPAM 0.5MG TABLET PO PRN (19:30)
[2021-12-10] MEDS ORDERED: ONDANSETRON HCL 4MG/2ML INJ IV PRN (19:30)
[2021-12-10 19:37] LABS: HEMATOCRIT. 26.2 % (36.0-48.0); HEMOGLOBIN. 8.5 g/dL (12.0-16.0); MEAN CORPUSCULAR HEMOGLOBIN 22.4 pg (28.0-32.0); MEAN PLATELET VOLUME 7.6 fl (7.4-10.4); PLATELET 262 x1000/uL (130-400); RED BLOOD CELL COUNT 3.79 mill/uL (4.2-5.4); RED CELL DISTRIBUTION WIDTH 17.6 % (11.6-14.6)
[2021-12-10 19:41] LABS: CHLORIDE 99 mEq/L (98-107)
[2021-12-10] MEDS: ATORVASTATIN CALCIUM 10MG TABLET PO SCH (20:45)
[2021-12-10] MEDS: SODIUM CHLORIDE 0.9% INJ 3ML FLUSH IVF SCH (20:53)
[2021-12-10] MEDS ORDERED: ZOLPIDEM TARTRATE 5MG TABLET PO PRN (21:00)
[2021-12-10 21:30] LABS: PLATELET ESTIMATE NORMAL
[2021-12-10] MEDS ORDERED: HYDRALAZINE HCL 100MG TABLET PO SCH (22:00)
[2021-12-10] MEDS: HYDRALAZINE HCL 100MG TABLET PO SCH (23:02)
[2021-12-11] VITALS (7 sets, daily range): BP systolic 143–214; BP diastolic 46–70
[2021-12-11] MEDS: CLONIDINE 0.1MG TABLET PO PRN (03:13)
[2021-12-11] MEDS: SODIUM CHLORIDE 0.9% INJ 3ML FLUSH IVF SCH ×3 (05:53→21:43)
[2021-12-11] MEDS: HYDRALAZINE HCL 100MG TABLET PO SCH ×3 (05:53→21:44)
[2021-12-11] MEDS: AMLODIPINE 10MG TABLET PO SCH (08:28)
[2021-12-11] MEDS: LOSARTAN POTASSIUM 50 MG TABLET PO SCH (08:28)
[2021-12-11] MEDS ORDERED: ALTEPLASE 2MG/VIAL ITC NR ×2 (11:00→11:15)
[2021-12-11] MEDS: ATORVASTATIN CALCIUM 10MG TABLET PO SCH (21:43)
[2021-12-11 22:17] LABS: HEPATITIS B SURFACE ANTIGEN NEGATIVE
[2021-12-12] VITALS: BP 168/89
[2021-12-12 04:00] VITALS: BP 162/53
[2021-12-12] MEDS: SODIUM CHLORIDE 0.9% INJ 3ML FLUSH IVF SCH ×3 (05:53→21:03)
[2021-12-12] MEDS: HYDRALAZINE HCL 100MG TABLET PO SCH ×3 (05:53→21:03)
[2021-12-12] MEDS ORDERED: POLYMYXIN B SULFATE 500000 UNITS/VIAL ONE (06:48)
[2021-12-12] MEDS ORDERED: LIDOCAINE HCL 1% 50ML VIAL (10MG/ML) ONE (06:49)
[2021-12-12] MEDS ORDERED: BACITRACIN 15GM TUBE TOP ONE (06:49)
[2021-12-12] MEDS ORDERED: BUPIVACAINE HCL 0.5% (5MG/ML) 50ML ONE (06:49)
[2021-12-12] MEDS ORDERED: DEXAMETHASONE 4MG/ML 1ML VIAL ONE ×2 (06:49→07:49)
[2021-12-12] MEDS ORDERED: GENTAMICIN SULF 40MG/ML 2ML VIAL ONE (06:49)
[2021-12-12] MEDS ORDERED: THROMBIN (BOVINE) 5000 UNITS/VIAL TOP ONE (06:59)
[2021-12-12] MEDS ORDERED: HEPARIN SODIUM 1,000 UNIT/1ML VIAL IV ONE (06:59)
[2021-12-12] MEDS ORDERED: FENTANYL CITRATE/PF 50MCG/ML 2ML VIAL ONE (07:27)
[2021-12-12] MEDS ORDERED: METOCLOPRAMIDE HCL 10MG/2ML VIAL ONE (07:49)
[2021-12-12] MEDS ORDERED: CEFAZOLIN SODIUM 1000MG/VIAL ONE (07:49)
[2021-12-12] MEDS ORDERED: ONDANSETRON HCL 4MG/2ML INJ ONE (07:49)
[2021-12-12 08:00] VITALS: BP 158/52
[2021-12-12] MEDS ORDERED: FENTANYL CITRATE/PF 50MCG/ML 2ML VIAL IV PRN (08:15)
[2021-12-12] MEDS ORDERED: HYDROMORPHONE HCL/PF 2MG/ML CPJ IV PRN (08:15)
[2021-12-12] MEDS ORDERED: ONDANSETRON HCL 4MG/2ML INJ IV PRN (08:15)
[2021-12-12] MEDS ORDERED: SODIUM CHLORIDE 0.9% 1,000 ML IV ONE (08:45)
[2021-12-12] MEDS: LOSARTAN POTASSIUM 50 MG TABLET PO SCH (09:00)
[2021-12-12] MEDS: AMLODIPINE 10MG TABLET PO SCH (09:00)
[2021-12-12] MEDS: HYDRALAZINE 20MG/ML VIAL IV PRN ×2 (10:04→23:39)
[2021-12-12 12:00] VITALS: BP 152/62
[2021-12-12] MEDS ORDERED: VANCOMYCIN 1,750 MG in DEXT 5% WATER 500 ML IV NR (12:00)
[2021-12-12 16:00] VITALS: BP 142/58
[2021-12-12 20:00] VITALS: BP 180/72
[2021-12-12] MEDS: ATORVASTATIN CALCIUM 10MG TABLET PO SCH (21:02)
[2021-12-12] MEDS: CEFEPIME 500 MG in DEXTROSE 5% WATER 50 ML IV SCH (23:13)
[2021-12-13] VITALS (14 sets, daily range): BP systolic 123–180; BP diastolic 44–75
[2021-12-13] MEDS: IBUPROFEN 100MG/5ML UDC PO PRN
[2021-12-13] MEDS: CLONIDINE 0.1MG TABLET PO PRN (03:58)
[2021-12-13] MEDS: SODIUM CHLORIDE 0.9% INJ 3ML FLUSH IVF SCH ×3 (05:04→21:29)
[2021-12-13] MEDS: HYDRALAZINE HCL 100MG TABLET PO SCH ×3 (05:08→21:29)
[2021-12-13 07:03] LABS: BASOPHILS % 0.7 % (0.0-2.0); EOSINOPHILS % 0.5 % (0.0-5.0); HEMATOCRIT. 21.2 % (36.0-48.0); LYMPHOCYTES % 18.8 % (20.0-50.0); MEAN CORPUSCULAR HEMOGLOBIN 22.5 pg (28.0-32.0); MEAN CORPUSCULAR VOLUME 70.4 fL (81.0-99.0); MONOCYTES % 6.2 % (2.0-8.0); NEUTROPHILS % 73.8 % (40.0-76.0); RED BLOOD CELL COUNT 3.01 mill/uL (4.2-5.4); RED CELL DISTRIBUTION WIDTH 17.6 % (11.6-14.6)
[2021-12-13 07:28] LABS: HEMOGLOBIN. 6.8 g/dL (12.0-16.0)
[2021-12-13 07:50] LABS: PLATELET 214 x1000/uL (130-400)
[2021-12-13] MEDS: LOSARTAN POTASSIUM 50 MG TABLET PO SCH (08:34)
[2021-12-13] MEDS: AMLODIPINE 10MG TABLET PO SCH (08:35)
[2021-12-13] MEDS: CEFEPIME 500 MG in DEXTROSE 5% WATER 50 ML IV SCH (21:10)
[2021-12-13] MEDS: ATORVASTATIN CALCIUM 10MG TABLET PO SCH (21:29)
[2021-12-13 21:46] LABS: HEMATOCRIT 30.6 % (36.0-48.0)
[2021-12-14] VITALS (7 sets, daily range): BP systolic 119–180; BP diastolic 55–79
[2021-12-14] MEDS: IBUPROFEN 100MG/5ML UDC PO PRN (01:10)
[2021-12-14] MEDS: CLONIDINE 0.1MG TABLET PO PRN (01:11)
[2021-12-14] MEDS: SODIUM CHLORIDE 0.9% INJ 3ML FLUSH IVF SCH ×3 (05:16→21:14)
[2021-12-14] MEDS: HYDRALAZINE HCL 100MG TABLET PO SCH ×3 (05:16→21:12)
[2021-12-14 07:56] LABS: BASOPHILS % 0.4 % (0.0-2.0); EOSINOPHILS % 3.9 % (0.0-5.0); HEMATOCRIT. 24.8 % (36.0-48.0); HEMOGLOBIN. 8.2 g/dL (12.0-16.0); MEAN CORPUSCULAR HEMOGLOBIN 23.8 pg (28.0-32.0); MEAN CORPUSCULAR VOLUME 71.8 fL (81.0-99.0); MEAN PLATELET VOLUME 7.8 fl (7.4-10.4); MONOCYTES % 8.1 % (2.0-8.0); NEUTROPHILS % 72.6 % (40.0-76.0); PLATELET 223 x1000/uL (130-400); RED BLOOD CELL COUNT 3.45 mill/uL (4.2-5.4); RED CELL DISTRIBUTION WIDTH 19.3 % (11.6-14.6)
[2021-12-14 09:01] LABS: CHLORIDE 102 mEq/L (98-107)
[2021-12-14] MEDS: LOSARTAN POTASSIUM 50 MG TABLET PO SCH (09:06)
[2021-12-14] MEDS: AMLODIPINE 10MG TABLET PO SCH (09:06)
[2021-12-14] MEDS ORDERED: VANCOMYCIN 1.25GM PMX (XELLIA) 250 ML IV SCH (13:00)
[2021-12-14] MEDS: ATORVASTATIN CALCIUM 10MG TABLET PO SCH (20:44)
[2021-12-15] VITALS: BP 191/71
[2021-12-15] MEDS: HYDRALAZINE 20MG/ML VIAL IV PRN (00:16)
[2021-12-15 00:42] VITALS: BP 199/65
[2021-12-15] MEDS: CLONIDINE 0.1MG TABLET PO PRN ×2 (00:54→09:00)
[2021-12-15 01:38] VITALS: BP 139/51
[2021-12-15 04:00] VITALS: BP 147/54
[2021-12-15] MEDS: HYDRALAZINE HCL 100MG TABLET PO SCH (05:36)
[2021-12-15] MEDS: SODIUM CHLORIDE 0.9% INJ 3ML FLUSH IVF SCH (05:36)
[2021-12-15 08:00] VITALS: BP 176/55
[2021-12-15] MEDS: LOSARTAN POTASSIUM 50 MG TABLET PO SCH (08:57)
[2021-12-15] MEDS: AMLODIPINE 10MG TABLET PO SCH (08:57)
[2021-12-15 09:00] VITALS: BP 141/68
[2021-12-15 09:09] LABS: BASOPHILS % 0.9 % (0.0-2.0); EOSINOPHILS % 4.4 % (0.0-5.0); HEMATOCRIT. 28.5 % (36.0-48.0); LYMPHOCYTES % 14.9 % (20.0-50.0); MEAN CORPUSCULAR VOLUME 72.3 fL (81.0-99.0); MEAN PLATELET VOLUME 7.6 fl (7.4-10.4); MONOCYTES % 6.5 % (2.0-8.0); NEUTROPHILS % 73.3 % (40.0-76.0); PLATELET 235 x1000/uL (130-400); RED BLOOD CELL COUNT 3.94 mill/uL (4.2-5.4); RED CELL DISTRIBUTION WIDTH 19.6 % (11.6-14.6)
[2021-12-16] MEDS ORDERED: EPOETIN ALFA-EPBX 4,000 UNIT/ML VIAL SUBCUT SCH (21:00)
== END 2021-12-15 10:10 | DRG 252 ==
LOC: ER 18:19 → 8WST 20:28 → ENRESERV 21:23 → 8WST 12-12 18:21
PROVIDERS: ADMIT Internal Medicine; ATTEND Internal Medicine
PROC: 5A1D70Z Performance of Urinary Filtration, Intermittent, Less than 6 Hours Per Day (ICD-10-PCS; 2021-12-11)
PROC: 5A1D70Z Performance of Urinary Filtration, Intermittent, Less than 6 Hours Per Day (ICD-10-PCS; 2021-12-12)
PROC: 05PY3JZ Removal of Synthetic Substitute from Upper Vein, Percutaneous Approach (ICD-10-PCS; 2021-12-12)
PROC: 03PY3JZ Removal of Synthetic Substitute from Upper Artery, Percutaneous Approach (ICD-10-PCS; 2021-12-12)
PROC: 03P Upper Arteries, Removal (ICD-10-PCS; 2021-12-12)
PROC: 05PY3DZ Removal of Intraluminal Device from Upper Vein, Percutaneous Approach (ICD-10-PCS; 2021-12-12)
PROC: 30243N1 Transfusion of Nonautologous Red Blood Cells into Central Vein, Percutaneous Approach (ICD-10-PCS; principal; 2021-12-13)
PROC: 5A1D70Z Performance of Urinary Filtration, Intermittent, Less than 6 Hours Per Day (ICD-10-PCS; 2021-12-15)
DX: T82.7XXA Infection and inflammatory reaction due to other cardiac and vascular devices, implants and grafts, initial encounter (principal); N18.6 End stage renal disease; J96.90 Respiratory failure, unspecified, unspecified whether with hypoxia or hypercapnia; I12.0 Hypertensive chronic kidney disease with stage 5 chronic kidney disease or end stage renal disease; T82.818A Embolism due to vascular prosthetic devices, implants and grafts, initial encounter; D64.9 Anemia, unspecified; E11.22 Type 2 diabetes mellitus with diabetic chronic kidney disease; E87.70 Fluid overload, unspecified; F03.90 Unspecified dementia, unspecified severity, without behavioral disturbance, psychotic disturbance, mood disturbance, and anxiety; Y83.2 Surgical operation with anastomosis, bypass or graft as the cause of abnormal reaction of the patient, or of later complication, without mention of misadventure at the time of the procedure; E78.00 Pure hypercholesterolemia, unspecified; J44.9 Chronic obstructive pulmonary disease, unspecified; I65.21 Occlusion and stenosis of right carotid artery; Z20.822 Contact with and (suspected) exposure to COVID-19; Z82.49 Family history of ischemic heart disease and other diseases of the circulatory system; Z86.73 Personal history of transient ischemic attack (TIA), and cerebral infarction without residual deficits; Z87.891 Personal history of nicotine dependence; Z99.2 Dependence on renal dialysis; Y84.1 Kidney dialysis as the cause of abnormal reaction of the patient, or of later complication, without mention of misadventure at the time of the procedure; Y92.89 Other specified places as the place of occurrence of the external cause
CPT/HCPCS: 36415; 71045; 80048; 80053; 80202; 84484; 85014; 85018; 85025; 85049; 85384; 86705; 86709; 86803; 86850; 86900; 86920; 87070; 87075; 87077; 87186; 87340; 87426; 88304; 93005; 99291; J0360; J0690; J0692; J1100; J1200; J1580; J1644; J2405; J2765; J2997; J3010; J3370; J3490; J7060; P9016

== ENCOUNTER 2021-12-17 07:23 | Inpatient (IN) | payer MEDICARE, MEDICAID ==
[~2021-12-17] VITALS: Ht 175.3 cm; Wt 79.4 kg
[2021-12-17 08:48] LABS: BASOPHILS % 0.6 % (0.0-2.0); EOSINOPHILS % 2.3 % (0.0-5.0); HEMATOCRIT. 29.8 % (36.0-48.0); HEMOGLOBIN. 9.3 g/dL (12.0-16.0); LYMPHOCYTES % 14.5 % (20.0-50.0); MEAN CORPUSCULAR VOLUME 73.8 fL (81.0-99.0); MEAN PLATELET VOLUME 7.8 fl (7.4-10.4); MONOCYTES % 6.4 % (2.0-8.0); NEUTROPHILS % 76.2 % (40.0-76.0); PLATELET 203 x1000/uL (130-400); RED BLOOD CELL COUNT 4.04 mill/uL (4.2-5.4); RED CELL DISTRIBUTION WIDTH 19.3 % (11.6-14.6)
[2021-12-17 08:56] LABS: CHLORIDE 100 mEq/L (98-107)
[2021-12-17] MEDS ORDERED: AMLODIPINE 10MG TABLET PO SCH (10:45)
[2021-12-17] MEDS ORDERED: HYDRALAZINE 20MG/ML VIAL IV PRN (10:45)
[2021-12-17] MEDS ORDERED: HEPARIN 1000 UNITS/ML 10ML ONE (13:54)
[2021-12-17] MEDS ORDERED: LIDOCAINE HCL/PF 1% 10 MG/ML 5ML VIAL ONE (13:54)
[2021-12-17 14:00] VITALS: BP 207/69
[2021-12-17 14:10] VITALS: BP 207/69
[2021-12-17 14:15] VITALS: BP 208/74
[2021-12-17 14:21] VITALS: BP 208/74
[2021-12-17] MEDS ORDERED: CLONIDINE 0.1MG TABLET PO PRN (15:45)
[2021-12-17] MEDS ORDERED: ONDANSETRON HCL 4MG/2ML INJ IV PRN (15:45)
[2021-12-17] MEDS ORDERED: ACETAMINOPHEN 325MG TABLET PO PRN ×2 (15:45)
[2021-12-17] MEDS ORDERED: DIPHENHYDRAMINE 50MG/ML VIAL IV PRN (15:45)
[2021-12-17 16:36] LABS: HEPATITIS B SURFACE ANTIGEN NEGATIVE
[2021-12-17] MEDS: CLONIDINE 0.1MG TABLET PO PRN (16:42)
[2021-12-17] MEDS: HYDRALAZINE 20MG/ML VIAL IV PRN (16:42)
[2021-12-18] VITALS: BP 155/54
[2021-12-18] MEDS: HYDRALAZINE HCL 100MG TABLET PO SCH ×5 (00:27→20:01)
[2021-12-18 04:00] VITALS: BP 150/53
[2021-12-18] MEDS ORDERED: LORA10TA7 PO (05:45)
[2021-12-18] MEDS ORDERED: HYDR100T26 PO (05:45)
[2021-12-18] MEDS ORDERED: AMLO10TA80 PO (05:45)
[2021-12-18] MEDS ORDERED: BENA10TA74 PO (05:45)
[2021-12-18] MEDS ORDERED: FAMO20TA8 PO (05:45)
[2021-12-18] MEDS ORDERED: REN800 PO (05:45)
[2021-12-18] MEDS ORDERED: CLON0.1T PO (05:45)
[2021-12-18] MEDS ORDERED: ASPI-1497 PO (05:45)
[2021-12-18] MEDS ORDERED: CLON2TAB PO (05:45)
[2021-12-18] MEDS ORDERED: AMIN30LI31 PO (05:45)
[2021-12-18] MEDS ORDERED: TOPUD PO (05:45)
[2021-12-18] MEDS ORDERED: EPOE40002 IJ ×2 (05:45)
[2021-12-18] MEDS ORDERED: ATOR10TA69 PO (05:45)
[2021-12-18 08:00] VITALS: BP 132/52
[2021-12-18] MEDS ORDERED: AMLODIPINE 10MG TABLET PO SCH (09:00)
[2021-12-18] MEDS ORDERED: ASPIRIN 81MG EC TABLET PO SCH (09:00)
[2021-12-18] MEDS ORDERED: LOSARTAN POTASSIUM 100 MG TABLET PO SCH (09:00)
[2021-12-18 12:00] VITALS: BP 140/61
[2021-12-18] MEDS: SODIUM CHLORIDE 0.9% INJ 3ML FLUSH IVF SCH ×2 (12:19→20:02)
[2021-12-18] MEDS: HYDRALAZINE 20MG/ML VIAL IV PRN ×2 (13:38→20:01)
[2021-12-18 15:44] VITALS: BP 118/44
[2021-12-18 15:56] VITALS: BP 118/44
[2021-12-18] MEDS: CLONIDINE 0.1MG TABLET PO PRN (21:29)
[2021-12-18] MEDS ORDERED: HYDRALAZINE 20MG/ML VIAL IV NR (21:45)
== END 2021-12-18 22:15 | DRG 673 ==
LOC: ER 07:23 → 8WST 09:16 → ENRESERV 21:17
PROVIDERS: ADMIT Internal Medicine; ATTEND Internal Medicine
PROC: 0JH63XZ Insertion of Tunneled Vascular Access Device into Chest Subcutaneous Tissue and Fascia, Percutaneous Approach (ICD-10-PCS; principal; 2021-12-17)
PROC: 02H633Z Insertion of Infusion Device into Right Atrium, Percutaneous Approach (ICD-10-PCS; 2021-12-17)
PROC: B5181ZA Fluoroscopy of Superior Vena Cava using Low Osmolar Contrast, Guidance (ICD-10-PCS; 2021-12-17)
PROC: 5A1D70Z Performance of Urinary Filtration, Intermittent, Less than 6 Hours Per Day (ICD-10-PCS; 2021-12-17)
DX: T82.42XA Displacement of vascular dialysis catheter, initial encounter (principal); N18.6 End stage renal disease; I12.0 Hypertensive chronic kidney disease with stage 5 chronic kidney disease or end stage renal disease; E11.22 Type 2 diabetes mellitus with diabetic chronic kidney disease; F03.90 Unspecified dementia, unspecified severity, without behavioral disturbance, psychotic disturbance, mood disturbance, and anxiety; E78.00 Pure hypercholesterolemia, unspecified; I25.10 Atherosclerotic heart disease of native coronary artery without angina pectoris; J44.9 Chronic obstructive pulmonary disease, unspecified; Y71.2 Prosthetic and other implants, materials and accessory cardiovascular devices associated with adverse incidents; Z96.641 Presence of right artificial hip joint; Z20.822 Contact with and (suspected) exposure to COVID-19; Z99.2 Dependence on renal dialysis; Z82.49 Family history of ischemic heart disease and other diseases of the circulatory system; Z86.73 Personal history of transient ischemic attack (TIA), and cerebral infarction without residual deficits; Z79.899 Other long term (current) drug therapy
CPT/HCPCS: 36415; 36581; 71045; 77001; 80053; 82962; 85025; 86705; 86709; 86803; 86850; 86900; 87340; 87426; 93005; 99285; C1750; C1769; C9803; J0360; J1644; J3490

== ENCOUNTER 2021-12-29 17:36 | Inpatient (IN) | payer MEDICARE, MEDICAID ==
[~2021-12-29] VITALS: Ht 167.6 cm; Wt 70.3 kg
[~2021-12-29 17:36] MED LIST changes: +AMIN30LI31 PO; +AMLO10TA80 PO; +ASPI-1497 PO; +ATOR10TA69 PO; +BENA10TA74 PO; +CLON0.1T PO; +CLON2TAB PO; +EPOE40002 IJ; +FAMO20TA8 PO; +HYDR100T26 PO; +LORA10TA7 PO; +REN800 PO; +TOPUD PO
[2021-12-29 19:10] LABS: BASOPHILS % 0.5 % (0.0-2.0); EOSINOPHILS % 3.6 % (0.0-5.0); HEMATOCRIT. 30.2 % (36.0-48.0); HEMOGLOBIN. 9.6 g/dL (12.0-16.0); LYMPHOCYTES % 11.4 % (20.0-50.0); MEAN CORPUSCULAR HEMOGLOBIN 22.9 pg (28.0-32.0); MEAN PLATELET VOLUME 7.8 fl (7.4-10.4); MONOCYTES % 6.2 % (2.0-8.0); NEUTROPHILS % 78.3 % (40.0-76.0); PLATELET 293 x1000/uL (130-400); RED CELL DISTRIBUTION WIDTH 19.4 % (11.6-14.6)
[2021-12-29 19:20] LABS: CHLORIDE 97 mEq/L (98-107)
[2021-12-29] MEDS ORDERED: ZOLPIDEM TARTRATE 5MG TABLET PO PRN (23:45)
[2021-12-29] MEDS ORDERED: HYDRALAZINE 20MG/ML VIAL IV PRN (23:45)
[2021-12-29] MEDS ORDERED: ACETAMINOPHEN 325MG TABLET PO PRN ×2 (23:45)
[2021-12-29] MEDS ORDERED: ONDANSETRON HCL 4MG/2ML INJ IV PRN (23:45)
[2021-12-30 05:14] LABS: BASOPHILS % 0.7 % (0.0-2.0); EOSINOPHILS % 2.2 % (0.0-5.0); HEMATOCRIT. 26.9 % (36.0-48.0); HEMOGLOBIN. 8.6 g/dL (12.0-16.0); LYMPHOCYTES % 21.5 % (20.0-50.0); MEAN CORPUSCULAR HEMOGLOBIN 23.1 pg (28.0-32.0); MEAN CORPUSCULAR VOLUME 71.9 fL (81.0-99.0); MEAN PLATELET VOLUME 7.6 fl (7.4-10.4); MONOCYTES % 8.8 % (2.0-8.0); NEUTROPHILS % 66.8 % (40.0-76.0); PLATELET 257 x1000/uL (130-400); RED BLOOD CELL COUNT 3.74 mill/uL (4.2-5.4); RED CELL DISTRIBUTION WIDTH 19.4 % (11.6-14.6)
[2021-12-30] MEDS: SODIUM CHLORIDE 0.9% INJ 3ML FLUSH IVF SCH ×3 (06:00→20:43)
[2021-12-30 09:05] VITALS: BP 160/73
[2021-12-30 09:10] VITALS: BP 160/73
[2021-12-30 11:40] VITALS: BP 192/78
[2021-12-30] MEDS: ASPIRIN 81MG EC TABLET PO SCH (11:42)
[2021-12-30] MEDS: LOSARTAN POTASSIUM 50 MG TABLET PO SCH (11:43)
[2021-12-30] MEDS: AMLODIPINE 10MG TABLET PO SCH (11:43)
[2021-12-30 12:45] VITALS: BP 154/53
[2021-12-30] MEDS: HYDRALAZINE HCL 100MG TABLET PO SCH ×3 (14:00→21:45)
[2021-12-30 16:00] VITALS: BP 140/53
[2021-12-30 17:14] LABS: HEPATITIS B SURFACE ANTIGEN NEGATIVE
[2021-12-30 20:00] VITALS: BP 101/43
[2021-12-30] MEDS: ATORVASTATIN CALCIUM 10MG TABLET PO SCH (20:42)
[2021-12-31] VITALS: BP 176/65
[2021-12-31] MEDS: CLONIDINE 0.1MG TABLET PO PRN (00:26)
[2021-12-31 04:00] VITALS: BP 151/57
[2021-12-31] MEDS: SODIUM CHLORIDE 0.9% INJ 3ML FLUSH IVF SCH ×3 (06:06→21:05)
[2021-12-31] MEDS: HYDRALAZINE HCL 100MG TABLET PO SCH ×3 (06:06→21:04)
[2021-12-31 08:30] VITALS: BP 161/64
[2021-12-31] MEDS: LOSARTAN POTASSIUM 50 MG TABLET PO SCH (09:11)
[2021-12-31] MEDS: AMLODIPINE 10MG TABLET PO SCH (09:11)
[2021-12-31] MEDS: ASPIRIN 81MG EC TABLET PO SCH (09:11)
[2021-12-31 12:00] VITALS: BP 148/52
[2021-12-31 16:00] VITALS: BP 161/83
[2021-12-31 20:00] VITALS: BP 183/79
[2021-12-31] MEDS: ATORVASTATIN CALCIUM 10MG TABLET PO SCH (21:04)
[2021-12-31] MEDS: EPOETIN ALFA-EPBX 10,000 UNIT/ML VIAL SUBCUT SCH (21:05)
[2022-01-01 04:00] VITALS: BP 171/81
[2022-01-01] MEDS: SODIUM CHLORIDE 0.9% INJ 3ML FLUSH IVF SCH ×3 (05:28→21:54)
[2022-01-01] MEDS: HYDRALAZINE HCL 100MG TABLET PO SCH ×3 (05:28→21:54)
[2022-01-01 08:00] VITALS: BP 219/89
[2022-01-01] MEDS: ASPIRIN 81MG EC TABLET PO SCH (09:05)
[2022-01-01] MEDS: LOSARTAN POTASSIUM 50 MG TABLET PO SCH (09:05)
[2022-01-01] MEDS: AMLODIPINE 10MG TABLET PO SCH (09:07)
[2022-01-01 11:00] VITALS: BP 153/55
[2022-01-01 12:00] VITALS: BP_SYST 143; BP_DIAS 162; BP_DIAS 62
[2022-01-01 16:00] VITALS: BP 149/60
[2022-01-01 20:00] VITALS: BP 154/56
[2022-01-01] MEDS: ATORVASTATIN CALCIUM 10MG TABLET PO SCH (21:54)
[2022-01-02] VITALS: BP 157/69
[2022-01-02 04:00] VITALS: BP 138/58
[2022-01-02] MEDS: SODIUM CHLORIDE 0.9% INJ 3ML FLUSH IVF SCH ×3 (06:00→21:45)
[2022-01-02 08:00] VITALS: BP 128/65
[2022-01-02] MEDS: AMLODIPINE 10MG TABLET PO SCH (09:00)
[2022-01-02] MEDS: LOSARTAN POTASSIUM 50 MG TABLET PO SCH (09:00)
[2022-01-02] MEDS: ASPIRIN 81MG EC TABLET PO SCH (09:00)
[2022-01-02 12:00] VITALS: BP_SYST 130; BP_SYST 139; BP_DIAS 64; BP_DIAS 82
[2022-01-02] MEDS: HYDRALAZINE HCL 100MG TABLET PO SCH ×2 (14:18→21:45)
[2022-01-02 16:00] VITALS: BP 142/70
[2022-01-02 20:00] VITALS: BP 150/52
[2022-01-02] MEDS: ATORVASTATIN CALCIUM 10MG TABLET PO SCH (21:44)
[2022-01-02] MEDS: EPOETIN ALFA-EPBX 10,000 UNIT/ML VIAL SUBCUT SCH (21:44)
[2022-01-03] VITALS: BP 155/31
[2022-01-03 04:00] VITALS: BP 192/65
[2022-01-03] MEDS: CLONIDINE 0.1MG TABLET PO PRN (04:41)
[2022-01-03] MEDS: HYDRALAZINE HCL 100MG TABLET PO SCH ×3 (05:57→22:00)
[2022-01-03] MEDS: SODIUM CHLORIDE 0.9% INJ 3ML FLUSH IVF SCH ×3 (05:57→22:00)
[2022-01-03 08:00] VITALS: BP 142/59
[2022-01-03] MEDS: AMLODIPINE 10MG TABLET PO SCH (09:19)
[2022-01-03] MEDS: LOSARTAN POTASSIUM 50 MG TABLET PO SCH ×2 (09:19→18:38)
[2022-01-03] MEDS: ASPIRIN 81MG EC TABLET PO SCH (09:20)
[2022-01-03 12:00] VITALS: BP 174/64
[2022-01-03 16:00] VITALS: BP 135/57
[2022-01-03 20:00] VITALS: BP 148/49
[2022-01-03] MEDS: ATORVASTATIN CALCIUM 10MG TABLET PO SCH (21:03)
[2022-01-04] VITALS: BP 181/55
[2022-01-04 04:00] VITALS: BP 183/72
[2022-01-04] MEDS: SODIUM CHLORIDE 0.9% INJ 3ML FLUSH IVF SCH ×3 (05:31→21:52)
[2022-01-04] MEDS: HYDRALAZINE HCL 100MG TABLET PO SCH ×3 (05:45→21:45)
[2022-01-04 08:00] VITALS: BP 175/65
[2022-01-04] MEDS: AMLODIPINE 10MG TABLET PO SCH (08:02)
[2022-01-04] MEDS: LOSARTAN POTASSIUM 50 MG TABLET PO SCH ×2 (08:02→18:01)
[2022-01-04] MEDS: ASPIRIN 81MG EC TABLET PO SCH (08:02)
[2022-01-04 12:00] VITALS: BP 159/54
[2022-01-04 16:00] VITALS: BP 137/86
[2022-01-04 20:00] VITALS: BP 203/64
[2022-01-04] MEDS: ATORVASTATIN CALCIUM 10MG TABLET PO SCH (21:44)
[2022-01-05] VITALS: BP 159/38
[2022-01-05 02:06] LABS: HEPATITIS B SURFACE ANTIGEN NEGATIVE
[2022-01-05 04:37] VITALS: BP 158/52
[2022-01-05] MEDS: HYDRALAZINE HCL 100MG TABLET PO SCH ×3 (05:15→20:59)
[2022-01-05] MEDS: SODIUM CHLORIDE 0.9% INJ 3ML FLUSH IVF SCH ×3 (05:22→20:59)
[2022-01-05 08:00] VITALS: BP 184/39
[2022-01-05] MEDS: LOSARTAN POTASSIUM 50 MG TABLET PO SCH ×3 (08:56→18:48)
[2022-01-05] MEDS: AMLODIPINE 10MG TABLET PO SCH ×2 (08:56→11:01)
[2022-01-05] MEDS: ASPIRIN 81MG EC TABLET PO SCH (10:33)
[2022-01-05] MEDS ORDERED: HYDROCODONE/ACETAMINOPHEN 5/325MG TABLET PO PRN (11:00)
[2022-01-05] MEDS ORDERED: NALOXONE HCL 0.4MG/ML VIAL IV PRN (11:00)
[2022-01-05 12:00] VITALS: BP 131/56
[2022-01-05 16:00] VITALS: BP 115/41
[2022-01-05 20:00] VITALS: BP 150/51
[2022-01-05] MEDS: ATORVASTATIN CALCIUM 10MG TABLET PO SCH (20:59)
[2022-01-06] VITALS: BP 183/57
[2022-01-06] MEDS: EPOETIN ALFA-EPBX 10,000 UNIT/ML VIAL SUBCUT SCH (00:04)
[2022-01-06] MEDS: CLONIDINE 0.1MG TABLET PO PRN (00:13)
[2022-01-06 04:00] VITALS: BP 146/44
[2022-01-06] MEDS: HYDRALAZINE HCL 100MG TABLET PO SCH ×3 (05:58→20:58)
[2022-01-06] MEDS: SODIUM CHLORIDE 0.9% INJ 3ML FLUSH IVF SCH ×3 (05:58→20:59)
[2022-01-06 08:00] VITALS: BP 180/62
[2022-01-06] MEDS: LOSARTAN POTASSIUM 50 MG TABLET PO SCH ×2 (08:39→17:36)
[2022-01-06] MEDS: AMLODIPINE 10MG TABLET PO SCH (08:39)
[2022-01-06] MEDS: ASPIRIN 81MG EC TABLET PO SCH (08:39)
[2022-01-06 12:00] VITALS: BP 117/57
[2022-01-06 16:00] VITALS: BP 120/65
[2022-01-06 20:50] VITALS: BP 183/68
[2022-01-06] MEDS: ATORVASTATIN CALCIUM 10MG TABLET PO SCH (20:58)
[2022-01-07] VITALS (7 sets, daily range): BP systolic 126–176; BP diastolic 48–72
[2022-01-07] MEDS: CLONIDINE 0.1MG TABLET PO PRN (00:58)
[2022-01-07] MEDS: HYDRALAZINE HCL 100MG TABLET PO SCH ×4 (05:06→21:20)
[2022-01-07] MEDS: SODIUM CHLORIDE 0.9% INJ 3ML FLUSH IVF SCH ×3 (05:07→22:00)
[2022-01-07] MEDS: LOSARTAN POTASSIUM 50 MG TABLET PO SCH ×2 (08:25→17:13)
[2022-01-07] MEDS: ASPIRIN 81MG EC TABLET PO SCH (08:25)
[2022-01-07] MEDS: AMLODIPINE 10MG TABLET PO SCH (08:25)
[2022-01-07] MEDS: ATORVASTATIN CALCIUM 10MG TABLET PO SCH (21:20)
[2022-01-08] VITALS: BP 158/63
[2022-01-08 04:00] VITALS: BP 189/94
[2022-01-08] MEDS: SODIUM CHLORIDE 0.9% INJ 3ML FLUSH IVF SCH ×2 (05:07→13:21)
[2022-01-08] MEDS: CLONIDINE 0.1MG TABLET PO PRN (05:07)
[2022-01-08] MEDS: HYDRALAZINE HCL 100MG TABLET PO SCH ×2 (05:07→13:21)
[2022-01-08 08:00] VITALS: BP 127/58
[2022-01-08] MEDS: ASPIRIN 81MG EC TABLET PO SCH (08:21)
[2022-01-08] MEDS: LOSARTAN POTASSIUM 50 MG TABLET PO SCH ×2 (08:21→16:23)
[2022-01-08] MEDS: AMLODIPINE 10MG TABLET PO SCH (08:22)
[2022-01-08 12:00] VITALS: BP 135/55
[2022-01-08 16:00] VITALS: BP 141/55
[2022-01-08 18:10] LABS: HEMATOCRIT. 28.6 % (36.0-48.0); HEMOGLOBIN. 9.1 g/dL (12.0-16.0); MEAN CORPUSCULAR HEMOGLOBIN 22.9 pg (28.0-32.0); MEAN CORPUSCULAR VOLUME 72.3 fL (81.0-99.0); MEAN PLATELET VOLUME 7.9 fl (7.4-10.4); PLATELET 226 x1000/uL (130-400); RED BLOOD CELL COUNT 3.96 mill/uL (4.2-5.4); RED CELL DISTRIBUTION WIDTH 20.3 % (11.6-14.6)
[2022-01-08 18:25] LABS: CHLORIDE 101 mEq/L (98-107)
[2022-01-08 19:23] LABS: PLATELET ESTIMATE NORMAL
== END 2022-01-08 19:50 | DRG 70 ==
LOC: ER 17:36 → MICUSO 22:24 → 7WST 12-30 07:34
PROVIDERS: ADMIT Internal Medicine; ATTEND Internal Medicine
PROC: 5A1D70Z Performance of Urinary Filtration, Intermittent, Less than 6 Hours Per Day (ICD-10-PCS; principal; 2021-12-31)
PROC: 5A1D70Z Performance of Urinary Filtration, Intermittent, Less than 6 Hours Per Day (ICD-10-PCS; 2022-01-02)
PROC: 5A1D70Z Performance of Urinary Filtration, Intermittent, Less than 6 Hours Per Day (ICD-10-PCS; 2022-01-05)
PROC: 5A1D70Z Performance of Urinary Filtration, Intermittent, Less than 6 Hours Per Day (ICD-10-PCS; 2022-01-07)
DX: G93.41 Metabolic encephalopathy (principal); J96.90 Respiratory failure, unspecified, unspecified whether with hypoxia or hypercapnia; N18.6 End stage renal disease; R47.01 Aphasia; I12.0 Hypertensive chronic kidney disease with stage 5 chronic kidney disease or end stage renal disease; N25.81 Secondary hyperparathyroidism of renal origin; I69.854 Hemiplegia and hemiparesis following other cerebrovascular disease affecting left non-dominant side; G90.8 Other disorders of autonomic nervous system; E11.22 Type 2 diabetes mellitus with diabetic chronic kidney disease; D64.9 Anemia, unspecified; F03.90 Unspecified dementia, unspecified severity, without behavioral disturbance, psychotic disturbance, mood disturbance, and anxiety; I65.21 Occlusion and stenosis of right carotid artery; F41.9 Anxiety disorder, unspecified; E78.00 Pure hypercholesterolemia, unspecified; Z20.822 Contact with and (suspected) exposure to COVID-19; J44.9 Chronic obstructive pulmonary disease, unspecified; N83.202 Unspecified ovarian cyst, left side; R56.9 Unspecified convulsions; N83.201 Unspecified ovarian cyst, right side; E78.5 Hyperlipidemia, unspecified; Z82.49 Family history of ischemic heart disease and other diseases of the circulatory system; Z99.2 Dependence on renal dialysis; Z79.82 Long term (current) use of aspirin
CPT/HCPCS: 36415; 71045; 80048; 80053; 82962; 84484; 85025; 86705; 86709; 86803; 87340; 87426; 93005; 99285; J0360; J0885; U0003; U0005

== ENCOUNTER 2023-11-09 18:34 | Emergency (ER) | payer MEDICARE, MEDICAID ==
[~2023-11-09] VITALS: Ht 170.2 cm; Wt 73.0 kg
[~2023-11-09 18:34] MED LIST changes: +ABIL5 MT; -ATOR10TA69 PO; +BENA-8 MT; -BENA10TA74 PO; -CEPH500C2 MT; -CLON2TAB PO; +FERR-63 PO; +GABA-529 MT; +HYDR100T26 MT; -HYDR100T26 PO; +INSASP SUBCUT; +MINO2.5T19 PO; -REN800 PO; +SEVE0.8P MT
[2023-11-09 18:37] VITALS: TEMP 98.6; O2SAT 100
[2023-11-09] MEDS ORDERED: LIDOCAINE HCL/EPINEPHRINE 1%-EPI 1:100,000 50 ML VIAL INFIL ONE (19:30)
[2023-11-09] MEDS: LIDOCAINE HCL/EPINEPHRINE 1%-EPI 1:100,000 20 ML VIAL INFIL NR (19:30)
[2023-11-09] MEDS: TRANEXAMIC ACID 1,000MG/10ML IV ONE (19:30)
[2023-11-09 20:37] LABS: HEMATOCRIT. 28.2 % (36.0-48.0); HEMOGLOBIN. 9.2 g/dL (12.0-16.0); MEAN CORPUSCULAR HEMOGLOBIN 25.1 pg (28.0-32.0); MEAN CORPUSCULAR HGB CONC 32.7 g/dL (31.0-37.0); MEAN CORPUSCULAR VOLUME 76.8 fL (81.0-99.0); MEAN PLATELET VOLUME 9.1 fl (7.4-10.4); PLATELET 137 x1000/uL (130-400); RED BLOOD CELL COUNT 3.67 mill/uL (4.2-5.4); WHITE BLOOD COUNT 3.5 x1000/uL (4.5-11.0)
[2023-11-09 20:46] LABS: DIFFERENTIAL COMMENT 1
[2023-11-09 20:47] LABS: INR 1.2; PARTIAL THROMBOPLASTIN TIME 32.2 sec (23.4-31.0)
[2023-11-09 22:09] LABS: ANISOCYTOSIS 1+; MICROCYTOSIS 1+; PLATELET ESTIMATE NORMAL
[2023-11-09 23:51] VITALS: BP 154/61; PULSE 66; RESP 13
== END 2023-11-09 23:30 | disposition home or self-care (01) ==
LOC: ER 18:34
DX: T82.41XA Breakdown (mechanical) of vascular dialysis catheter, initial encounter (principal)
CPT/HCPCS: 99284; 96374; 71045; 85025; 85610; 85730; 86850; 86900; 86901; 36415; 12002; J3490

== ENCOUNTER 2024-08-09 13:07 | Inpatient (IN) | payer MEDICARE, MEDICAID ==
[~2024-08-09] VITALS: Ht 172.7 cm; Wt 69.4 kg
[~2024-08-09 13:07] MED LIST changes: +HYDR100T11 MT; -HYDR100T26 MT
[2024-08-09 14:29] LABS: BG BASE EXCESS -3.1 mmol/L (-2.0-3.0); BG DEOXYHEMOGLOBIN 2.6 % (0.0-5.0); BG FRACTION INSPIRED OXYGEN 36; BG METHEMOGLOBIN 0.3 % (0.5-1.5); BG OXYGEN SATURATION 97.4 % (94.0-98.0); BG OXYHEMOGLOBIN 96.1 % (94.0-98.0); BG PCO2 46.5 mmHg (32.0-45.0); BG PH 7.313 (7.350-7.450); BG PO2 94.7 mmHg (83.0-108.0); BG SAMPLE SITE RIGHT RADIAL; BG TOTAL HEMOGLOBIN 8.9 g/dL (12.0-16.0); BG VENT MODE NASAL CANNULA
[2024-08-09] MEDS: SODIUM CHLORIDE 0.9% 250 ML IV ONE (17:00)
[2024-08-09] MEDS: VANCOMYCIN 1G PREMIX 200 ML IV ONE (17:00)
[2024-08-09] MEDS: PIPERACILLIN/TAZO 3.375G/50ML 50 ML IV ONE (17:00)
[2024-08-09 17:11] LABS: HEMATOCRIT. 27.2 % (36.0-48.0); HEMOGLOBIN. 8.6 g/dL (12.0-16.0); MEAN CORPUSCULAR HEMOGLOBIN 24.3 pg (28.0-32.0); MEAN CORPUSCULAR HGB CONC 31.8 g/dL (31.0-37.0); MEAN CORPUSCULAR VOLUME 76.5 fL (81.0-99.0); MEAN PLATELET VOLUME 9.7 fl (7.4-10.4); PLATELET 169 x1000/uL (130-400); RED BLOOD CELL COUNT 3.55 mill/uL (4.2-5.4); RED CELL DISTRIBUTION WIDTH 19.7 % (11.6-14.6); WHITE BLOOD COUNT 4.3 x1000/uL (4.5-11.0)
[2024-08-09 17:17] LABS: CHLORIDE 104 mEq/L (98-107); POTASSIUM 5.3 mEq/L (3.5-5.1); SODIUM 134 mEq/L (136-145)
[2024-08-09 17:18] LABS: CALCIUM 9.3 mg/dL (8.7-10.4); CARBON DIOXIDE 24 mEq/L (21-32)
[2024-08-09 17:19] LABS: INR 1.3; PROTHROMBIN TIME 13.8 sec (9.6-11.0)
[2024-08-09 17:22] LABS: DIFFERENTIAL COMMENT 1
[2024-08-09 17:23] LABS: CREATININE 3.7 mg/dL (0.6-1.0); GLUCOSE 103 mg/dL (70-105); UREA NITROGEN BLOOD 21 mg/dL (9-23)
[2024-08-09 17:24] LABS: LACTATE DEHYDROGENASE 130 IU/L (120-246)
[2024-08-09 17:25] LABS: ALANINE AMINOTRANSFERASE < 7 IU/L (10-49); ALBUMIN 3.4 g/dL (3.2-4.8); ASPARTATE AMINOTRANSFERASE 10 IU/L (<34); BILIRUBIN DIRECT 0.1 mg/dL (<=3.0); BILIRUBIN TOTAL 0.2 mg/dL (0.1-1.0); CREATINE KINASE 16 IU/L (34-145); PROTEIN TOTAL 7.1 g/dL (6.0-8.3)
[2024-08-09 17:29] LABS: TROPONIN I HIGH SENSITIVITY 274 ng/L (3.0-34)
[2024-08-09 18:13] LABS: ANISOCYTOSIS 1+; HYPOCHROMASIA 1+; MICROCYTOSIS 1+; PLATELET ESTIMATE NORMAL
[2024-08-09] MEDS ORDERED: IPRATROPIUM/ALBUTEROL 0.5-3(2.5)MG/3ML NEB NEB PRN (21:30)
[2024-08-09] MEDS ORDERED: HYDRALAZINE 20MG/ML VIAL IV PRN (21:30)
[2024-08-09] MEDS ORDERED: ACETAMINOPHEN 325MG TABLET PO PRN (21:30)
[2024-08-09] MEDS: SODIUM CHLORIDE 0.9% 3ML FLUSH IVF SCH (22:00)
[2024-08-09 23:11] LABS: HEPATITIS B SURFACE ANTIGEN NEGATIVE (Negative)
[2024-08-09 23:31] LABS: HEPATITIS A AB IGM NEGATIVE (Negative)
[2024-08-09 23:32] LABS: HEPATITIS B CORE AB IGM NEGATIVE (Negative)
[2024-08-09 23:33] LABS: HEPATITIS C AB NON REACTIVE (Neg) (Negative)
[2024-08-10] VITALS (7 sets, daily range): BP systolic 114–135; BP diastolic 46–58; PULSE 60–83; RESP 16–18; TEMP 36.1–37.2; O2SAT 98–100
[2024-08-10] MEDS: HYDRALAZINE HCL 100MG TABLET PO SCH (01:42)
[2024-08-10] MEDS: GABAPENTIN 100MG CAPSULE PO SCH (01:42)
[2024-08-10] MEDS: FOLIC ACID/VITAMIN B COMP W-C TABLET PO SCH (08:39)
[2024-08-10] MEDS: ASPIRIN 81MG EC TABLET PO SCH (08:39)
[2024-08-10] MEDS: ARIPIPRAZOLE 5MG TABLET PO SCH (08:39)
[2024-08-10] MEDS: AMLODIPINE 10MG TABLET PO SCH (08:39)
[2024-08-10] MEDS: ATORVASTATIN CALCIUM 10MG TABLET PO SCH (21:37)
[2024-08-11] VITALS (16 sets, daily range): BP systolic 114–152; BP diastolic 44–131; PULSE 78–101; RESP 16–17; TEMP 36.2–37.2; O2SAT 97–100
[2024-08-11 12:38] LABS: HEMATOCRIT. 26.7 % (36.0-48.0); HEMOGLOBIN. 8.3 g/dL (12.0-16.0); MEAN CORPUSCULAR HEMOGLOBIN 23.9 pg (28.0-32.0); MEAN CORPUSCULAR VOLUME 77.2 fL (81.0-99.0); MEAN PLATELET VOLUME 9.4 fl (7.4-10.4); PLATELET 163 x1000/uL (130-400); RED BLOOD CELL COUNT 3.46 mill/uL (4.2-5.4); RED CELL DISTRIBUTION WIDTH 19.4 % (11.6-14.6); WHITE BLOOD COUNT 3.7 x1000/uL (4.5-11.0)
[2024-08-11 12:46] LABS: DIFFERENTIAL COMMENT 1
[2024-08-11 12:48] LABS: CHLORIDE 107 mEq/L (98-107); POTASSIUM 4.5 mEq/L (3.5-5.1); SODIUM 139 mEq/L (136-145)
[2024-08-11 12:49] LABS: CARBON DIOXIDE 23 mEq/L (21-32)
[2024-08-11 12:50] LABS: CALCIUM 8.9 mg/dL (8.7-10.4)
[2024-08-11 12:54] LABS: CREATININE 3.8 mg/dL (0.6-1.0); GLUCOSE 84 mg/dL (70-105)
[2024-08-11 12:55] LABS: UREA NITROGEN BLOOD 23 mg/dL (9-23)
[2024-08-11 12:56] LABS: ALANINE AMINOTRANSFERASE < 7 IU/L (10-49); ALBUMIN 3.2 g/dL (3.2-4.8); ASPARTATE AMINOTRANSFERASE 9 IU/L (<34)
[2024-08-11 12:57] LABS: BILIRUBIN TOTAL 0.2 mg/dL (0.1-1.0); PROTEIN TOTAL 7.1 g/dL (6.0-8.3)
[2024-08-11 13:11] LABS: TROPONIN I HIGH SENSITIVITY 148 ng/L (3.0-34)
[2024-08-11] MEDS ORDERED: BISACODYL 10MG SUPP PR PRN (13:15)
[2024-08-11] MEDS: DOCUSATE SODIUM 250MG CAPSULE PO SCH (17:40)
[2024-08-12] VITALS: BP 110/51; PULSE 69; RESP 16; TEMP 37.1; O2SAT 98
[2024-08-12 04:00] VITALS: BP 133/58; PULSE 82; RESP 16; TEMP 36.7; O2SAT 99
[2024-08-12 08:00] VITALS: BP 129/64; PULSE 83; RESP 18; TEMP 36.3; O2SAT 100
[2024-08-12] MEDS: TIZANIDINE HCL 2MG TABLET PO PRN (10:08)
[2024-08-12] MEDS: ACETAMINOPHEN 325MG TABLET PO PRN (10:15)
[2024-08-12] MEDS: DIPHENHYDRAMINE 50MG/ML VIAL IV PRN (10:21)
[2024-08-12] MEDS: ONDANSETRON HCL 4MG/2ML INJ IV PRN (11:14)
[2024-08-12 12:00] VITALS: BP 118/52; PULSE 90; RESP 18; TEMP 37.1; O2SAT 98
[2024-08-12 16:00] VITALS: BP 118/47; PULSE 70; RESP 18; TEMP 36.5; O2SAT 98
[2024-08-12] MEDS: MENTHOL/LANOLIN/CALAMINE/ZN OX OINT 71GM TOP SCH (16:44)
[2024-08-12 20:00] VITALS: BP 114/65; PULSE 64; RESP 16; TEMP 36.2; O2SAT 95
[2024-08-12 20:04] LABS: PLATELET ESTIMATE NORMAL
[2024-08-13] VITALS (14 sets, daily range): BP systolic 92–134; BP diastolic 35–61; PULSE 63–82; RESP 16–18; TEMP 36.3–36.61404; O2SAT 95–100
[2024-08-14] VITALS: BP 107/53; PULSE 69; RESP 16; TEMP 36.5; O2SAT 100
[2024-08-14 04:00] VITALS: BP 109/43; PULSE 63; RESP 16; TEMP 36.5; O2SAT 100
[2024-08-14 08:00] VITALS: BP 124/42; PULSE 65; RESP 16; TEMP 36.6; O2SAT 100
[2024-08-14 12:00] VITALS: BP 123/51; PULSE 82; RESP 14; TEMP 36.5; O2SAT 100
[2024-08-14 16:00] VITALS: BP 116/45; PULSE 84; RESP 18; TEMP 36.7; O2SAT 99
[2024-08-14 20:00] VITALS: BP 119/42; PULSE 86; RESP 16; TEMP 36.2; O2SAT 100
[2024-08-15] VITALS: BP 117/49; PULSE 106; RESP 16; TEMP 36.3; O2SAT 98
[2024-08-15 04:00] VITALS: BP 110/60; PULSE 107; RESP 16; TEMP 36.4; O2SAT 98
[2024-08-15 08:00] VITALS: BP 101/53; PULSE 106; RESP 20; TEMP 37.1; O2SAT 98
[2024-08-15 12:14] LABS: INR 1.2; PARTIAL THROMBOPLASTIN TIME 32.2 sec (23.4-31.0); PROTHROMBIN TIME 13.6 sec (9.6-11.0)
[2024-08-15 16:00] VITALS: BP 105/57; PULSE 75; RESP 18; TEMP 36.7; O2SAT 98
[2024-08-15 17:21] LABS: BODY FLUID RBC 242500 /cu mm (0-2000); BODY FLUID WBC 500 /cu mm (0-200)
[2024-08-15 17:23] LABS: BODY FLUID MONOCYTES 40 %
[2024-08-15 20:00] VITALS: BP 127/55; PULSE 84; RESP 18; TEMP 36.7; O2SAT 99
[2024-08-16] VITALS: BP 103/58; PULSE 81; RESP 16; TEMP 36.4; O2SAT 100
[2024-08-16 04:00] VITALS: BP 139/47; PULSE 84; RESP 18; TEMP 36.1; O2SAT 100
[2024-08-16 08:00] VITALS: BP 136/52; PULSE 65; RESP 18; TEMP 36.2; O2SAT 100
[2024-08-16 12:00] VITALS: BP 126/46; PULSE 62; RESP 18; TEMP 36.6; O2SAT 100
[2024-08-16 16:00] VITALS: BP 112/46; PULSE 65; RESP 18; TEMP 36.2; O2SAT 100
[2024-08-16 20:00] VITALS: BP 124/41; PULSE 70; RESP 16; TEMP 35.7; O2SAT 98
[2024-08-17] VITALS (10 sets, daily range): BP systolic 123–158; BP diastolic 50–78; PULSE 70–99; RESP 18–24; TEMP 36.2–37.1; O2SAT 96–99
== END 2024-08-17 12:20 | DRG 70 ==
LOC: ER 13:07 → EDBEDREQTM 17:37 → EDBEDREQ 17:37 → 5WST 20:39
PROVIDERS: ADMIT Internal Medicine; ATTEND Internal Medicine
PROC: 5A1D70Z Performance of Urinary Filtration, Intermittent, Less than 6 Hours Per Day (ICD-10-PCS; 2024-08-11)
PROC: 5A1D70Z Performance of Urinary Filtration, Intermittent, Less than 6 Hours Per Day (ICD-10-PCS; 2024-08-13)
PROC: 0W993ZZ Drainage of Right Pleural Cavity, Percutaneous Approach (ICD-10-PCS; principal; 2024-08-15)
DX: G93.40 Encephalopathy, unspecified (principal); J96.01 Acute respiratory failure with hypoxia; N18.6 End stage renal disease; E46 Unspecified protein-calorie malnutrition; E87.1 Hypo-osmolality and hyponatremia; F03.94 Unspecified dementia, unspecified severity, with anxiety; J90 Pleural effusion, not elsewhere classified; I13.2 Hypertensive heart and chronic kidney disease with heart failure and with stage 5 chronic kidney disease, or end stage renal disease; N25.81 Secondary hyperparathyroidism of renal origin; D63.1 Anemia in chronic kidney disease; E11.22 Type 2 diabetes mellitus with diabetic chronic kidney disease; E78.5 Hyperlipidemia, unspecified; E87.5 Hyperkalemia; E87.70 Fluid overload, unspecified; I65.21 Occlusion and stenosis of right carotid artery; J44.9 Chronic obstructive pulmonary disease, unspecified; N83.202 Unspecified ovarian cyst, left side; E11.51 Type 2 diabetes mellitus with diabetic peripheral angiopathy without gangrene; I50.9 Heart failure, unspecified; L98.492 Non-pressure chronic ulcer of skin of other sites with fat layer exposed; R56.9 Unspecified convulsions; Z74.01 Bed confinement status; Z82.49 Family history of ischemic heart disease and other diseases of the circulatory system; Z86.73 Personal history of transient ischemic attack (TIA), and cerebral infarction without residual deficits; Z99.2 Dependence on renal dialysis
CPT/HCPCS: 32555; 36415; 36600; 71045; 80048; 80053; 80076; 82375; 82550; 82805; 82962; 83036; 83605; 83615; 83880; 84145; 84484; 85025; 86705; 86709; 86850; 86900; 87340; 87804; 90935; 93005; 99285; A4606; A4663; A6261; J1200; J2405; J2543; J3370; J7050